=== PATIENT | male | born 1965 | race Caucasian/White ===

== ENCOUNTER 2024-04-27 08:04 | Inpatient (IN) | payer OTHER, SELFPAY ==
[2024-04-27] VITALS (72 sets, daily range): BP systolic 105–196; BP diastolic 67–135; PULSE 2–155; BMI 30.2; BMI 29.3
--- NOTE | 2024-04-27 04:54 | ED.GENMED ---
History of Present Illness
General
Chief Complaint: Breathing Problem
Source: patient and ambulance crew
Exam Limitations: none and clinical condition
Time Seen by Provider: 04/27/24 04:36
Nursing documentation reviewed up to this point in time: agreed with
History of Present Illness
History of Present Illness:
58-year-old male arrives via EMS with increased shortness of breath. Patient is currently residing at a friend's house. The patient has also been homeless recently. Patient has been taking albuterol that he garnered from a friend. Upon arrival
EMS found him waiting outside tachycardic, and tachypneic. His heart rate was 180s so they gave him 6 mg of adenosine. After the adenosine, there EKG showed rapid A-fib so medics gave verapamil. They also administered 2 sublingual nitro which
seemed to help. They put him on CPAP which helped with his breathing issues. He was able to speak in short sentences. Upon arrival, patient was in moderate to severe respiratory distress. He was able to speak in one-word sentences. He was
diaphoretic and his abdomen was distended.
Review of Systems
Review of Systems
Allergies reviewed?: Yes
All Other Systems: ROS reviewed and negative except as documented in HPI and ROS
Constitutional: Reports sleep disturbance and night sweats
EENT: Reports no symptoms
Respiratory: Reports trouble breathing
Cardiac: Reports diaphoresis and palpitations
ABD/GI: Denies nausea or constipated
: Reports no symptoms
Musculoskeletal: Reports no symptoms
Skin: Reports no symptoms
Neurological: Reports no symptoms
Endocrine: Reports no symptoms
Hematologic/Lymphatic: Reports no symptoms
Psychiatric: Reports anxiety
Phy Exam
General Physical Exam
General Presentation: moderate distress
General age: appears older than age
General Skin: warm
General Habitus: poor hygiene
General Mental: anxious and usual mental status
Cardiovascular Exam
Cardiovascular Exam: regular rate/rhythm and no edema
Neurological Exam
Neurological Exam: alert
Musculoskeletal Exam
Musculoskeletal Exam: full ROM
Skin Exam
Skin Exam: diaphoresis
Psychiatric Exam
Psychiatric Exam: anxious
Scores
Heart Failure Risk
Heart Failure Risk Score: Yes
History of Stroke or TIA: No
History of intubation for respiratory distress: No
Heart rate on ED arrival >/= 110: Yes
SaO2 <90% on arrival on room air: Yes
HR >/=110 during 3min walk test (or too ill to perform test): Yes
ECG has acute ischemic changes: No
Urea >/=12mmol/L (BUN 33.6mg/dL): No
Serum CO2>/=35mmol/L: No
Troponin I or T elevated to MT Level (0.4mg/dL): No
NT-proBNP >/=5,000ng/L (5,000pg/ml): No
HF Risk Score: 3
Admission Status: HIGH RISK 15.9% Consider SNF treatment or admission to hospital
Course
Orders/Labs/Results
Orders:
Orders
04/27/24 04:36
Electrocardiogram (*1) Urgent
Reason for Study: Other
Other Reason for Exam: Respiratory Distress
Cardiac Monitoring- Treatment ONCE
EKG- Treatment ONCE
IV Insert/Care/Rem.- Treatment PRN
CR Chest Portable - 1 View Urgent
Comment:
Reason For Exam: respiratory distress
Reason Study Needs to be Portable: Patient Unstable
O2 Therapy [RESP] Urgent
Titrate/Wean O2 to maintain O2 sat greater than (%): 93
Special Instructions: TO MAINTAIN CONTINUOUS O2 SATS >/= 93%
Pulse Ox/cont/shift [RESP] Urgent
Quantity: 1
Special Instructions: continuous pulse ox
04/27/24 04:38
EKG- Treatment ONCE
04/27/24 04:50
Complete Blood Count/With Diff Urgent
Comprehensive Metabolic Panel Urgent
NT-proBNP Urgent
Troponin I Urgent
04/27/24 04:53
Nitroglycerin 100 mg/250 ml [Nitroglycerin Premix] 100 mg in 250 ml IV NOW
Initial dose in mcg/min, then titrate:: 5
Titrate to keep:: SBP < 160 mmHg
Titrate by mcg/min:: 5 mcg/min, may increase by 10 mcg/min if dose > 20 mcg/min
Frequency of titrations (minutes):: every 3-5 minutes
Maximum dose in mcg/min:: 200
Begin to taper infusion when:: Remained at goal for 2hrs
Taper by mcg/min:: 5 mcg/min
Frequency of taper (minutes) if patient maintains goal:: 30
Taper to off?: Yes
If infusion off & no longer maintaining goal:: Contact Provider
04/27/24 05:16
COVID-19 Antigen Urgent
Source: Nasal Swab
04/27/24 05:34
ABG [Arterial Blood Gas] Urgent
%Oxygen/Room Air: 92% bipap
04/27/24 06:11
Celis Placement- Treatment ONCE
Reason for insertion: I&O's Critical Care
04/27/24 06:19
Furosemide [Lasix] 40 mg IV NOW STA
Abnormal Lab Results
04/27/24 04/27/24
04:50 05:34
WBC 16.7 H 10^3/uL
(4.8-10.8)
MCH 31.7 H pg
(27.0-31.0)
MPV 11.2 H fL
(7.4-10.4)
Abs Immat Gran (auto) 0.1 H 10^3/uL
(0-0.05)
Absolute Neuts (auto) 10.6 H 10^3/uL
(1.4-6.5)
Absolute Lymphs (auto) 4.8 H 10^3/uL
(1.2-3.4)
Absolute Monos (auto) 0.8 H 10^3/uL
(0.1-0.6)
Immature Gran % 0.7 H %
(0-0.5)
pO2 73 L mmHg
(83-108)
Carbon Dioxide 16 L mmol/L
(22-30)
Glucose 378 H mg/dl
(70-99)
AST 159 H U/L
(17-59)
ALT 152 H U/L
(0-50)
Alkaline Phosphatase 145 H U/L
(38-126)
Troponin I 0.039 H* ng/ml
04/27/24 04:50
04/27/24 04:50
Vital Signs
Initial and Last Documented VS:
Initial Vital Signs
Resp Pulse Ox
33 93
04/27/24 04:35 04/27/24 04:35
Last Documented Vital Signs
Temp Pulse Resp BP Pulse Ox
97.5 F 146 21 147/117 96
04/27/24 05:05 04/27/24 06:40 04/27/24 06:40 04/27/24 06:40 04/27/24 06:40
MDM/Problems Addressed
Differential Diagnosis Includes:
CHF, flash pulmonary edema, COPD exacerbation
Chronic conditions affecting care:
Tobacco abuse,
*Radiology
Radiology exam reviewed: preliminary read by ED provider (Pulmonary vascular congestion)
*Pulse Oximetry
Patient hypoxic: yes
*[employer] Crewmember Interpretation
Rate: normal
Interpretation: normal
Heart Rate: 155
Rhythm: sinus tachycardia
*Critical Care Note
Total Time (30-74mins, 75-104mins- exclusive of procedures): 50 (Critical care statement: A total of [default value] minutes of critical care time was provided for this patient. This time is separate from time utilized to perform the
aforementioned documented procedures. Aggregate critical care time includes only time during which I was engaged in work directl)
Patient Management
Social determinants of health affecting care: Living situation, Poor outpatient follow-up and Poor social support (Homelessness)
Discussion with other providers: Hospitalist
Update Note
Update Note:
04/27/2024 0643 AM patient is still on BiPAP. He is breathing more easily at this point. He had nitroglycerin on board which seemed to help. We did give him Lasix. Patient to be admitted to the hospitalist service CHF exacerbation
ED Attending Note
-
Portions of this chart may have been created with voice recognition software.� Occasional wrong word or��sound alike� substitutions may have occurred due to the inherent limitations of voice recognition software.
Discharge Plan
Departure
Patient Disposition: Admit
Date of Disposition: 04/27/24
Time of Disposition: 06:51
Presentation/result/management discussed w/ accepting MD/DO: Hospitalist
Discharge Problem:
CHF (congestive heart failure), Acute respiratory distress, Tobacco abuse, Homelessness
Interventions
Interventions:
*Risk Screen - Suicide Last Done: 04/27/24 04:39
*General Assessment Last Done: 04/27/24 04:39
*Neglect/Abuse Screening Last Done: 04/27/24 04:39
ED- Fall Risk Assessment Last Done: 04/27/24 04:39
*ED COVID-19 Vaccine History Last Done: 04/27/24 04:39
ED- Cardiac Assessment Last Done: 04/27/24 05:10
ED- Pulmonary Assessment Last Done: 04/27/24 05:10
Discharge Date and Time
Print Language: MONTSERRATIAN
[2024-04-27 04:58] LABS: % Basophils 0.7 % (0-2); % Immature Granulocytes 0.7 % (0-0.5); % Lymphocytes 28.9 % (20.5-51.1); % Monocytes 4.7 % (1.7-9.3); Absolute Basophils 0.1 10^3/uL (0-0.2); Absolute Eosinophils 0.3 10^3/uL (0-0.7); Absolute Immature Granulocytes 0.1 10^3/uL (0-0.05); Absolute Lymphocytes 4.8 10^3/uL (1.2-3.4); Absolute Monocytes 0.8 10^3/uL (0.1-0.6); Absolute Neutrophils 10.6 10^3/uL (1.4-6.5); Hematocrit 48.1 % (39.0-52.0); Hemoglobin 16.5 g/dL (13.0-18.0); Mean Corp Hgb Conc. 34.3 g/dL (33.0-37.0); Mean Corpuscular Hgb 31.7 pg (27.0-31.0); Mean Corpuscular Volume 92.3 fL (80.0-94.0); Mean Platelet Volume 11.2 fL (7.4-10.4); Nucleated Red Blood Cells % 0 % (-); Platelet Count 259 10^3/uL (130-400); Red Blood Cell Count 5.21 10^6/uL (4.70-6.10); Red Cell Dist. Width 12.8 % (11.5-14.5); White Blood Cell Count 16.7 10^3/uL (4.8-10.8)
[2024-04-27] MEDS: NITROGLYCERIN PREMIX 250 IV (04:59)
[2024-04-27 05:23] LABS: ALT (SGPT) 152 U/L (0-50); AST (SGOT) 159 U/L (17-59); Albumin 4.2 g/dl (3.5-5.0); Alkaline Phosphatase 145 U/L (38-126); Blood Urea Nitrogen 17 mg/dl (9-20); Calcium 9.1 mg/dl (8.4-10.2); Carbon Dioxide 16 mmol/L (22-30); Chloride 103 mmol/L (98-107); Estimated Creatinine Clearance 74 ml/min; Glucose 378 mg/dl (70-99); Potassium 4.4 mmol/L (3.5-5.1); Sodium 141 mmol/L (135-145); Total Bilirubin 0.9 mg/dl (0.2-1.3); Total Protein 6.6 g/dl (6.3-8.2); eGFR > 60.00
[2024-04-27 05:34] LABS: NT-proBNP 1670 pg/ml; Troponin I 0.039 ng/ml
--- NOTE | 2024-04-27 05:34 | EDRN ---
On arrival to ED, pt. switched from EMS CPAP to hospital Bipap. Per respiratory, current settings 12/5, 14L of oxygen.
[2024-04-27 05:35] LABS: COVID-19 Antigen Negative (Negative)
[2024-04-27 05:39] LABS: B.E. -3.7 mmol/L; HCO3 21.5 mmol/L (21-28); PCO2 39 mmHg (35-48); PO2 73 mmHg (83-108); pH 7.35 (7.35-7.45)
[2024-04-27] MEDS: LASIX 40 MG IV ×2 (06:22→09:57)
--- NOTE | 2024-04-27 06:44 | EDRN ---
Pt. is poor historian, reports he has had cardiac stents and renal stents in the past, reports a hx. of an [place]. Pt. denies taking any medications at home, states, 'I haven't followed up with them in over 10 years. I used to go to [facility]
in [place], but I don't take any medicines now'.
--- NOTE | 2024-04-27 07:25 | HPS.HSE ---
Family Physician
-
Family Physician:
Chief Complaint
-
SOB, respiratory distress
History of Present Illness
HPI: 58-year-old homeless male without known past medical history, presented with shortness of breath. Patient is currently residing at a friend's house. Patient has been taking albuterol that he garnered from a friend.
He was found to be tachycardic and tachypneic by EMS. His heart rate was in the 180s so was given 6 mg adenosine. After the adenosine, there EKG showed rapid A-fib so medics gave verapamil.
They also administered 2 sublingual nitro which seemed to help. They put him on CPAP which helped with his breathing. He was able to speak in short sentences.
Medical History
Past Medical History
Past Medical History: Reports None
Past Surgical History: Reports None
Social History
Tobacco: Smoker (2PPD)
Alcohol: Occasional
Living: Homeless
Family History
Family History: Not pertinent
Allergies / Home Medications
Allergies reflects when Allergies were last updated in [facility].
Home Medications with original date entered in [facility]
Allergy/Medication List:
Allergies
Allergy/AdvReac Type Severity Reaction Status Date / Time
No Known Allergies Allergy Verified 04/27/24 04:37
Home Medications
No Meds [No Current Medications] 04/27/24
Review of Systems
-
Respiratory: Reports See HPI and Trouble Breathing
Cardiac: Reports Diaphoresis
Physical Exam
Vital Signs
Vital Signs
Temp Pulse Resp BP Pulse Ox
36.4 C 133 18 130/106 97
04/27/24 05:05 04/27/24 06:51 04/27/24 06:51 04/27/24 06:51 04/27/24 06:51
Physical Exam
General: Well Developed, Well Nourished, Conversant and Respiratory Distress
HEENT: NormoCephalic, Moist mucous membranes, Atraumatic and Oxygen (BIPAP)
Respiratory: Rhonchi and Non Labored Respirations; No Accessory Resp Muscle Use
Cardiac: S1/S2 and Regular Rhythm; No Murmur or Rub
GI: Soft, Non Tender, Non Distended and Normal Bowel Sounds; No Organomegaly
Rectal: Deferred by Provider
Musculoskeletal: No Clubbing, No Cyanosis, Edema, Left Lower Extremity (mild) and Edema, Right Lower Extremity (mild)
Skin: No Rash
Neuro: Awake and Alert
Psych: Calm and Intact Judgment/Insight
Laboratory Results
-
04/27/24 04:50
04/27/24 04:50
Laboratory Results
pH 7.35 (7.35-7.45) 04/27/24 05:34
pCO2 39 mmHg (35-48) 04/27/24 05:34
pO2 73 mmHg (83-108) L 04/27/24 05:34
HCO3 21.5 mmol/L (21-28) 04/27/24 05:34
Total Bilirubin 0.9 mg/dl (0.2-1.3) 04/27/24 04:50
AST 159 U/L (17-59) H 04/27/24 04:50
ALT 152 U/L (0-50) H 04/27/24 04:50
Alkaline Phosphatase 145 U/L (38-126) H 04/27/24 04:50
Troponin I 0.039 ng/ml H* 04/27/24 04:50
Data Reviewed
-
Diagnostic Radiology: Image Personally Visualized and interpreted and Report Reviewed by me
Lab Data: Labs Reviewed by me
Impression/Plan
-
HPI: 58-year-old homeless male without known past medical history, presented with shortness of breath. Patient is currently residing at a friend's house. Patient has been taking albuterol that he garnered from a friend.
He was found to be tachycardic and tachypneic by EMS. His heart rate was in the 180s so was given 6 mg adenosine. After the adenosine, there EKG showed rapid A-fib so medics gave verapamil.
They also administered 2 sublingual nitro which seemed to help. They put him on CPAP which helped with his breathing. He was able to speak in short sentences.
In the ED, he remained in respiratory distress, only able to speak in one-word sentences initially, was diaphoretic. He was placed on BiPAP which helped with his respiratory distress.
A/P:
# Acute hypoxic respiratory failure, unclear cause, could be due to acute CHF versus others
Continue BiPAP O2 support
Chest x-ray noted Cardiomegaly with increased pulmonary vascularity.
Status post Lasix 40 IV x1 in ED, cont IV lasix 40 mg daily
patient was started with nitro drip in the ED
Check D-dimer and consider CT chest
Cardiology and Painter And Decorator CS
# Presumed new onset A-fib RVR
IV Cardizem PRN for HR > 120
Check echo
Cardiology consult
# Likely nonischemic troponin elevation
EKG noted A fib RVR
Troponin 0.039, continue to trend
# Elevated LFT, presumed congestion versus reactive
Continue to trend
# Leukocytosis, possibly reactive
Check procalcitonin, check CRP
Monitor temperature curve
Observe without antibiotic for now
DVT prophylaxis: Lovenox SQ
Full code
[2024-04-27 08:18] LABS: D-Dimer 1.16 ug/mlFEU (0.00-0.50)
--- NOTE | 2024-04-27 08:29 | CON.INTV ---
Consultation
Consultation Request
Date/Time Consultation Requested: 04/27/2024-9 AM
Date/Time Consultation Performed: 04/27/2024-9:30 AM
Requesting Provider: Hospitalist
Performing Provider: Dr. Yoder
Reason for Consultation: Respiratory failure/CHF/critical care management
Medical History
-
Chief Complaint: Severe shortness of breath
History of Present Illness:
58-year-old male homeless smoker of 2 packs of cigarettes daily with a history of CAD and stent but no other significant past medical history though he is a poor historian and does not seek medical attention often presented with severe shortness of
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
04/27/2024. Patient feels much improved after nitroglycerin and Lasix as well as oxygen. He continues to have significant tachycardia with irregular rhythm. He denies any current chest pain but had some 'chest pressure'. Does not any chest
congestion, hemoptysis, productive cough, abdominal pain, nausea, vomiting, diarrhea, leg swelling or weakness.
Past Medical History
Past Medical History: None (CAD/stent-details unclear. Probable COPD. Tobacco addiction-2 packs daily.)
Social History
Tobacco: Smoker ([id number]-2 packs a day-ongoing)
Alcohol: None
Drug: None
Personal: Single
Living: Homeless
Occupational Exposures: No known asbestos exposure
Environmental Exposures: No known tuberculosis exposure
Family History
Family History: Reviewed & Not Pertinent
Allergies / Home Medications
Allergies
Allergy/AdvReac Type Severity Reaction Status Date / Time
No Known Allergies Allergy Verified 04/27/24 04:37
Home Medications
�Medication �Instructions �Recorded �Confirmed �Last Taken �Type
No Meds [No Current Medications] 04/27/24 04/27/24 Unknown History
Review of Systems
-
Unable to Obtain full review of systems at this time due to: Other (Per HPI)
Vitals / Labs / Diagnostic Testing
Vital Signs
Temp Pulse Resp BP Pulse Ox
97.6 F 126 24 131/85 98
04/27/24 07:00 04/27/24 07:00 04/27/24 07:00 04/27/24 07:00 04/27/24 07:39
Lab Data
04/27/24 04:50
04/27/24 04:50
Laboratory Results
04/27/24
05:34
pH 7.35
pCO2 39
pO2 73 L
HCO3 21.5
O2 Delivery Level
Microbiology
04/27/24 07:55 Nasal Swab Influenza Types A & B (FLO) - Final
Negative for Influenza A & B, NAAT
Negative results must be combined with clinical observations
and patient history.
Nucleic Acid Amplification test (NAAT)performed on the
[employer] platform.
Diagnostic Testing:
Physical Exam
-
Exam:
Well-nourished and well-developed in no apparent distress
HEENT-atraumatic, normocephalic
Neck-supple, no JVD, no bruit
Heart-regular rate and rhythm-no murmurs, rubs or gallops
Chest with mildly diminished breath sounds but no wheezes, has crackles at both bases
Back-no tenderness
Abdomen-soft, nontender, nondistended, no hepatosplenomegaly
Extremities-no cyanosis, clubbing, edema and good peripheral pulses
Integument-intact, no rashes, lesions or ecchymosis
Neurology-alert and oriented, nonfocal motor and sensory exam
Assessment
-
58-year-old male homeless smoker of 2 packs of cigarettes daily with a history of CAD and stent but no other significant past medical history though he is a poor historian and does not seek medical attention often presented with severe shortness of
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
04/27/2024.
Respiratory failure-acute hypoxemic due to CHF
CHF-EF unknown
SVT status post adenosine-now rapid atrial fibrillation
Troponin elevation
Transaminitis
Leukocytosis-WBC 16.7
Elevated D-dimer-1.16
Metabolic acidosis
Hyperglycemia-blood sugar 378
Conditions present prior to admission:
CAD/stent-details unclear. Probable COPD. Tobacco addiction-2 packs daily.
Plan
Patient will be admitted to medical intensive care unit for close observation
Supplemental oxygen as needed
High flow or noninvasive ventilation if needed
Intubated mechanically ventilated if needed
Currently being weaned off BiPAP
Nebulizers if needed-currently not bronchospastic and would avoid with significant tachycardia at this time
Aspiration precautions
Incentive spirometry
Atrial fibrillation rate control
Heparin drip
Nitroglycerin drip-may be able to be weaned off
Cardiology evaluation-pending
Trend troponin
Likely needs ischemia evaluation
Echocardiogram recommended
Diuresis as tolerated
Monitor renal function, electrolytes, intake/output, lower extremity edema and weight
Replace electrolytes as needed
Follow transaminitis
Check cultures
Hold off on antibiotics
D-dimer positive
Ideally needs CT chest with PE protocol-nonurgent as patient on heparin drip at this point and somewhat unstable-low clinical suspicion
Monitor blood sugar
Insulin supplementation as needed
Check A1c
Smoking cessation counseling ongoing
DVT prophylaxis-on heparin drip
Nutrition
Early mobilization
Outpatient pulmonary iexyan-sd-zngkqta cessation counseling, yearly low-dose lung cancer screening CT, PFTs, etc.
Critical care statement: A total of 55 minutes of critical care time was provided for this patient today. This includes management of unstable vital signs, evaluation of the patient at bedside, reviewing the patient's pertinent medical records
including radiographs, microbiology, laboratory evaluations, and discussion with primary team, consultants, pharmacy, nutrition, physical therapy, case management, charge nurse, critical care nursing, and respiratory therapy.
Diagnostic data:
Chest x-ray 04/27/2024-cardiomegaly with CHF
EKG 04/27/2024-atrial fibrillation with rapid ventricular response, septal infarct, ST and T wave abnormalities laterally
Data Reviewed
-
EKG: Report reviewed by me
Radiology: Image personally visualized and interpreted and Report reviewed by me
CT Scan: Image personally visualized and interpreted and Report reviewed by me
Medical Tests (Nuc Med, Echo etc): Report reviewed by me
Labs: Labs reviewed by me
Old Records: Reviewed
Critical Care Time (in minutes): 55
[2024-04-27 08:37] LABS: Procalcitonin 0.14 ng/ml (0.0-0.25)
[2024-04-27] MEDS: NICODERM TRANSDERMAL 21 MG TRANSDERM (09:58)
[2024-04-27] MEDS: LOW STRENGTH ASPIRIN 324 MG PO (09:58)
[2024-04-27] MEDS: HEPARIN 25000 UNITS/250 ML IV (10:04)
[2024-04-27] MEDS: CARDIZEM 5 MG IV (10:07)
[2024-04-27 10:16] LABS: APTT 24.6 Sec (23.4-35.0); INR 1.13; PT 14.3 Sec (11.4-14.6)
[2024-04-27 10:40] LABS: Magnesium 1.9 mg/dl (1.6-2.3)
[2024-04-27 10:42] LABS: Troponin I 0.153 ng/ml
[2024-04-27] MEDS: CARDIZEM 125 IV ×2 (11:00→19:37)
[2024-04-27] MEDS: CARDIZEM 10 MG IV (11:00)
--- NOTE | 2024-04-27 11:29 | PTCARENOTE ---
Received pt in the ED on BiPAP 15-5 w/ 14 L. RR 20's. HR 130's, Afib on monitor. SBP 140's. Pt on Nitro 30mcg/min. Dr Hauser at bedside, ICU orders written. Pt appears comfortable, states he is feeling better. Weaned to 6L NC, sating 95%, tolerating
well. Pt transferred to room 3365 and this RN continued to care for pt. Heparin gtt started @ 1000units/hr and Nitro gtt turned off at 10am. IVP Cardizem given, followed by Cardizem gtt @ 5mg/hr, per Dr. BRITNI Vásquez's orders. Will continue to trend BP
and HR. Celis patent w/ large amounts of pale yellow urine. Pt received 2nd dose of IV Lasix @ 10am. Heart Failure education provided, packet given. Pt ordered Low Cholesterol diet. Place on Accu Checks. EHCO done at bedside. Full assessment and
admission as documented.
[2024-04-27 11:41] LABS: Glucose - Point of Care 268 mg/dl (70-99)
--- NOTE | 2024-04-27 11:56 | CON.CAR ---
Addendum entered and electronically signed by Tano Vásquez MD 04/27/24 16:56:
58-year-old man admitted with dyspnea, acute hypoxemic respiratory failure, and atrial fibrillation with rapid ventricular response up to 180 bpm. Gradual onset of dyspnea over the last few weeks, no awareness of tachycardia no chest pain, then
abruptly short of breath. Does not seek medical care routinely, but history of MD with PCI at [facility] roughly 10 years ago. Currently in much less distress on BiPAP heart rate now 120s.
PMH history of MD with PCI at [facility], presumed hypertension, hyperlipidemia, COPD
Meds: none
Allergies: none
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
Family history noncontributory
Surgical history negative except for PCI by patient report
ROS: Otherwise unrevealing
Echo 04/27/2024: EF 30-35%, mild LVH, global hypokinesis, regional variability, mild LVH aortic sclerosis,, normal atria, mild MR, normal pulmonary artery systolic pressure
131/85, pulse 126, respiratory 24, afebrile, BiPAP, head neck exam unrevealing, dentition not examined, lungs diminished with crackles right base, JVD okay, irregular rate and rhythm without obvious murmur, abdomen obese extremities without clubbing
cyanosis or edema neuro nonfocal, pulses palpable
Chest x-ray vascular congestion, CHF, cardiomegaly, aortic atherosclerosis, possible COPD
ECG atrial fibrillation rapid ventricular response suspected old anteroseptal MD, possible lateral ischemia
White count 16, hemoglobin 16.5, platelets 259,
D-dimer is 1.16, ALT and AST are 152 and 159, troponin is 0.039, C-reactive protein pending, proBNP 1670, procalcitonin pending ABG 7.35, pCO2 39, pO2 73, on BiPAP with 14 L of oxygen
Impression:
See below
Plan:
He presents with acute hypoxemic respiratory failure with acute heart failure with unknown EF. There is a history of prior MD with septal Q waves and PCI by patient report. He seems more comfortable with the addition of BiPAP and reduction in
heart rate. He is currently on IV nitro. He is still tachycardic.
Short-term we will try low-dose IV diltiazem. Ideally will switch to beta-lulu. Will heparinize for now, check echocardiogram and then initiate GDMT as tolerated. Based on clinical course he may need cardiac catheterization versus eventual
noninvasive ischemic evaluation. We will need to determine best strategy for atrial fibrillation beyond anticoagulation and rate control, cardioversion with and without transesophageal echo, amiodarone, etc.
Original Note:
Consultation
Consultation Request
Date/Time Consultation Performed: 04/27/24
Requesting Provider: Dr. Hauser
Performing Provider: Sasha Eduardo PA-C for Dr. BRITNI Vásquez
Reason for Consultation: CHF, afib
Medical History
-
Chief Complaint: SOB
History of Present Illness:
Patient is a 58 yo M with PMH of CAD s/p prior MD with LAD PCI ~[address] [facility], however has not been followed recently. He also reports he had previously been on a blood thinner however does not recall why. He reports
having stopped all of his medications some time ago when he lost his medical insurance. He reports over the last several weeks he has noted progression of SOB. He had been using a friend's nebulizers. Last evening he reports describing his symptoms
as SOB was a 'severe understatement' and asked for his friend to call 911 this morning. On arrival was noted to be in significant respiratory distress and required CPAP/BiPaP. He was noted to be tachycardic and tachypneic. Was given adenosine by EMS
and noted to be in rapid afib. Was started on IV cardizem gtt. Also given 2 SL nitro by EMS and dose of lasix in ER. Now in ICU patient reports he is much improved. Cardiology consulted for evaluation. Denies CP, palpitations, fevers, chills, LE
edema. Endorses orthopnea. Currently living with a friend
PMH:
CAD with MD status post LAD PCI approximately [address] [facility]
Presumed history of paroxysmal atrial fibrillation
Hypertension
Hyperlipidemia
Ongoing tobacco use
Past Medical History
Past Medical History: Other (in HPI)
Social History
Tobacco: Smoker (2 ppd)
Personal: Single
Living: With Roomate
Family History
Family History: Early CAD (in father)
Allergies / Home Medications
Allergy/AdvReac Type Severity Reaction Status Date / Time
No Known Allergies Allergy Verified 04/27/24 04:37
�Medication �Instructions �Recorded �Confirmed �Type
No Meds [No Current Medications] 04/27/24 04/27/24 History
Review of Systems
-
History Source: Patient
All other systems: Negative unless noted
Physical Exam
Vital Signs
Temp Pulse Resp BP Pulse Ox
97.5 F 117 23 143/108 95
04/27/24 11:23 04/27/24 11:00 04/27/24 08:30 04/27/24 11:00 04/27/24 11:27
Lab Results
04/27/24 04:50
04/27/24 04:50
Troponin I 0.153 ng/ml H* D 04/27/24 09:56
Shx-U-Bmqcdmceovi Pept 1670 pg/ml 04/27/24 04:50
Physical Exam
General: No Apparent Distress, Comfortable and Other (on supp O2)
HEENT: Normocephalic, Anicteric and Moist Mucous Membranes
Respiratory: Crackles and Non Labored Respirations
Cardiac: S1/S2 and Irregular Rhythm
GI: Soft, Non Tender, Non Distended and Normal Bowel Sounds
Musculoskeletal: No Clubbing, No Cyanosis and No Edema
Skin: Warm and Dry
Neuro: AO x 3
Impression / Plan
-
Primary Carton Forming Machine Adjuster: remotely seen by [facility] Carton Forming Machine Adjuster, details unknown
Assessment:
Acute hypoxic respiratory failure
Acute HFrEF
Atrial fibrillation with RVR, new diagnosis of unclear duration
Elevated troponin
Hyperglycemia, concern for diabetes, hgbA1c pending
Elevated LFTs
Leukocytosis
Elevated ddimer
CAD with MD status post LAD PCI approximately [address] [facility]
Presumed history of paroxysmal atrial fibrillation
Hypertension
Hyperlipidemia
Ongoing tobacco use
ECHO 04/27/24: TDS, global hypokinesis with regional variability, EF 30 to 35%, mild concentric LVH with discrete upper septal thickening, aortic sclerosis, PAP 25 to 30 mmHg
Plan:
-Patient presents in respiratory distress, presumably secondary to acute CHF. proBNP 1670. Chest x-ray with increased pulmonary vascularity with concern for CHF
-Also in atrial fibrillation with rapid ventricular response. Required adenosine by EMS. Remains in A-fib with elevated heart rates. Uptitrate IV Cardizem gtt. as needed for heart rate control
-Echocardiogram with EF 30 to 35%, unclear prior
-Attempted to obtain records from [facility]. I called 3 dressing room porter offices in [facility], none of whom had records on this patient
-Continue aspirin, IV heparin
-ddimer elevated so getting chest CTA
-[id number] score of 4 for HTN, CAD, CHF, presumed diabetes. will need eventual transition to OAC
-continue diuresis with IV lasix at present. wean supp O2
-CHF education
-trop up to 0.113. trend to peak. no CP. EKG with evidence of lateral ischemia by EKG in rapid afib. repeat EKG now. consider for L/RHC on Tuesday if agreeable and will be compliant with meds/follow up. Cr 1.1
-add coreg 3.125mg BID. uptitration of GDMT for cardiomyopathy as BP/HR/cost allow
-add high intensity statin therapy if LFTs improve, suspected elevated due to passive congestion. check CVE. consider abd US
-hgbA1c pending.
-consider for LAURYN/CV prior to DC
-tobacco cessation
-d/w nursing
Data Reviewed
-
EKG: Tracing Personally Visualized and interpreted
Radiology: Report Reviewed by me
Medical Tests (Nuc Med, Echo etc): Report Reviewed by me
Labs: Labs Reviewed by me
Old Records: Reviewed
[2024-04-27 11:57] LABS: Glycohemoglobin (HgbA1c) 8.5 % (4.0-5.6)
[2024-04-27] MEDS: NOVOLOG FLEXPEN-MODERATE RESISTANCE 5 UNITS SC (12:31)
--- NOTE | 2024-04-27 13:00 | CARDSERVLU ---
Echocardiogram with [facility] completed after protocol screening completed. Allergies verified.
Patent IV site: __L ANTECUBE___
IV site flushed with 0.9% NaCl pre and post administration.
Diluted bolus method utilized to enhance visualization of ventricular moise.
Total volume given: _5___ mL
Patient tolerated all procedures well without complications.
[2024-04-27 14:30] LABS: HDL Cholesterol 39 mg/dl; LDL Cholesterol, Calculated 121 mg/dl; Total Cholesterol 178 mg/dl (50-199); Triglyceride 94 mg/dl (10-149); Very Low Density Lipoprotein 18 mg/dl (0-30)
[2024-04-27] MEDS: NOVOLOG FLEXPEN-MODERATE RESISTANCE SC (16:27)
[2024-04-27 16:33] LABS: Glucose - Point of Care 106 mg/dl (70-99)
[2024-04-27 16:45] LABS: APTT 34.1 Sec (23.4-35.0)
[2024-04-27 17:07] LABS: Troponin I 0.219 ng/ml
[2024-04-27] MEDS: COREG 3.125 MG PO (19:37)
--- NOTE | 2024-04-27 20:00 | PTCARENOTE ---
rec`d pt at 1900. AAox3 cardiazem gtt. afib on monitor. 6L NC 98%. coarse and diminished lung sounds. non productive cough. harley in place. rt hand and left AC. heparin gtt continued. call sifuentes in reach, safe environment maintained.
[2024-04-27] MEDS: XOPENEX 1.25 MG INHALANT SOLUTION INH (23:11)
[2024-04-27 23:46] LABS: APTT 44.2 Sec (23.4-35.0)
[2024-04-28] VITALS (26 sets, daily range): BP systolic 110–180; BP diastolic 63–123; PULSE 87–99; O2SAT 94; BMI 29.6
--- NOTE | 2024-04-28 | PTCARENOTE ---
pt reassessed. no changes in pt assessment. call sifuentes in reach.
[2024-04-28 00:04] LABS: Troponin I 0.278 ng/ml
--- NOTE | 2024-04-28 04:30 | PTCARENOTE ---
RN began to wash pt. pt became anxious and SOB. STAT meds ordered by VICENTE. 02 increased to 8L. safe environment maintained.
[2024-04-28] MEDS: MORPHINE SULFATE 2 MG IV ×2 (04:56→04:57)
[2024-04-28] MEDS: LASIX 40 MG IV ×2 (04:58→08:22)
[2024-04-28 05:29] LABS: % Basophils 0.6 % (0-2); % Eosinophils 2.2 % (0-6); % Immature Granulocytes 0.5 % (0-0.5); % Lymphocytes 28.5 % (20.5-51.1); % Monocytes 5.8 % (1.7-9.3); % Neutrophils 62.4 % (42.2-75.2); Absolute Basophils 0.1 10^3/uL (0-0.2); Absolute Eosinophils 0.3 10^3/uL (0-0.7); Absolute Immature Granulocytes 0.1 10^3/uL (0-0.05); Absolute Lymphocytes 4.1 10^3/uL (1.2-3.4); Absolute Monocytes 0.8 10^3/uL (0.1-0.6); Hematocrit 47.1 % (39.0-52.0); Hemoglobin 16.3 g/dL (13.0-18.0); Mean Corp Hgb Conc. 34.6 g/dL (33.0-37.0); Mean Corpuscular Hgb 30.6 pg (27.0-31.0); Mean Corpuscular Volume 88.4 fL (80.0-94.0); Mean Platelet Volume 11.3 fL (7.4-10.4); Nucleated Red Blood Cells % 0 % (-); Platelet Count 245 10^3/uL (130-400); Red Blood Cell Count 5.33 10^6/uL (4.70-6.10); Red Cell Dist. Width 12.8 % (11.5-14.5); White Blood Cell Count 14.4 10^3/uL (4.8-10.8)
[2024-04-28 05:39] LABS: APTT 49.7 Sec (23.4-35.0)
[2024-04-28 05:56] LABS: ALT (SGPT) 143 U/L (0-50); AST (SGOT) 81 U/L (17-59); Albumin 4.4 g/dl (3.5-5.0); Alkaline Phosphatase 113 U/L (38-126); Blood Urea Nitrogen 16 mg/dl (9-20); Calcium 9.5 mg/dl (8.4-10.2); Carbon Dioxide 25 mmol/L (22-30); Chloride 99 mmol/L (98-107); Direct Bilirubin 0.4 mg/dl (0.0-0.4); Estimated Creatinine Clearance 80 ml/min; Glucose 291 mg/dl (70-99); Magnesium 1.7 mg/dl (1.6-2.3); Potassium 3.9 mmol/L (3.5-5.1); Sodium 137 mmol/L (135-145); Total Bilirubin 1.3 mg/dl (0.2-1.3); Total Protein 6.6 g/dl (6.3-8.2); eGFR > 60.00
[2024-04-28 06:15] LABS: Troponin I 0.169 ng/ml
--- NOTE | 2024-04-28 07:02 | W.PN.INTV ---
Today's Communication / Plan
Recommendations
Trend troponin
Diuresis
Atrial fibrillation rate control
Probable cardiac catheterization
Nebulizers as needed
Assessment
-
58-year-old male homeless smoker of 2 packs of cigarettes daily with a history of CAD and stent but no other significant past medical history though he is a poor historian and does not seek medical attention often presented with severe shortness of
breath unresponsive to 'albuterol inhaler' found to be tachycardic, tachypneic, and an SVT given adenosine with subsequent rapid atrial fibrillation and CHF-chief safety officer consulted for respiratory failure/CHF/rapid A-fib/critical care management
04/27/2024.
Respiratory failure-acute hypoxemic due to CHF
CHF-reduced EF-30%
SVT status post adenosine-now rapid atrial fibrillation
Troponin elevation
Transaminitis
Leukocytosis-WBC 16.7
Elevated D-dimer-1.16
Metabolic acidosis
Hyperglycemia-blood sugar 378
Conditions present prior to admission:
CAD/stent-details unclear. Probable COPD. Tobacco addiction-2 packs daily.
Plan
Remains critically ill with rapid atrial fibrillation on occasions, CHF
Continue supplemental oxygen as needed
BiPAP continues as needed-was dependent when he first came in-now liberated
Nebulizers if needed-currently not bronchospastic and would avoid with significant tachycardia at this time
Aspiration precautions continues
Incentive spirometry encouraged
Atrial fibrillation rate control continues
Heparin drip
Nitroglycerin drip wean
Cardiology [id number] reviewed--IV diltiazem, heparin, echocardiogram, and probable cardiac catheterization on Tuesday
Troponin trended
Echocardiogram 04/28/2024-EF 30-35%, diastolic function intermediate, aortic sclerosis, PA systolic 25-30
Diuresis as tolerated
Monitor renal function, electrolytes, intake/output, lower extremity edema and weight
Replace electrolytes as needed
Follow LFTs
Influenza negative
Hold off on antibiotics
D-dimer positive
Ideally needs CT chest with PE protocol-nonurgent as patient on heparin drip at this point and somewhat unstable-low clinical suspicion
Monitor blood sugar
Insulin supplementation as needed
A1c elevated at 8.5
Smoking cessation counseling ongoing
DVT prophylaxis-on heparin drip
Nutrition
Early mobilization
Outpatient pulmonary ucgeon-ru-fhiujxn cessation counseling, yearly low-dose lung cancer screening CT, PFTs, etc.
Critical care statement: A total of 40 minutes of critical care time was provided for this patient today. This includes management of unstable vital signs, evaluation of the patient at bedside, reviewing the patient's pertinent medical records
including radiographs, management of respiratory failure, BiPAP management, microbiology, laboratory evaluations, and discussion with primary team, consultants, pharmacy, nutrition, physical therapy, case management, charge nurse, critical care
nursing, and respiratory therapy.
Diagnostic data:
Chest x-ray 04/27/2024-cardiomegaly with CHF
EKG 04/27/2024-atrial fibrillation with rapid ventricular response, septal infarct, ST and T wave abnormalities laterally
Subjective Dataa
Subjective Data
Date of Service:
Date of Service: April 28, 2024
Chief Complaint: Drainage Inspector Follow Up and Pulmonary Follow Up
Subjective:
Had episode of shortness of breath responding to nebs and Lasix last evening, much improved this morning, no complaints of shortness of breath at rest, chest pain, productive cough, abdominal pain or increased leg swelling
Review of Systems
General: Other (Per HPI)
Objective Data
Data Reviewed
Vital Signs / I&O / Oxygen:
Vital Signs
Temp Pulse Resp BP Pulse Ox
97.8 F 81 25 148/77 95
04/27/24 15:25 04/28/24 06:00 04/28/24 06:00 04/28/24 06:00 04/28/24 06:00
Intake and Output
09/20/24 09/21/24 09/22/24
06:59 06:59 06:59
Intake Total 1370 / 1370
Output Total 300 / 300 4300 / 4300
Balance -300 / -300 -2930 / -2930
SaO2 95
Nasal Cannula flow liters per 6
minute
Physical Exam
General: Respiratory Distress (n) and Comfortable
HEENT: Normocephalic, Anicteric and Moist Mucous Membranes
Cardiovascular: Irregular Rhythm and Murmur
Respiratory: Clear (Diminished breath sounds and prolonged expiratory time), Wheeze (n), Crackles (Basilar), Rhonchi (n), Non-Labored Respirations, Accessory Resp Muscle Use (n) and Stridor (n)
GI: Soft, Non Distended and Non Tender
Neurology: Awake, Alert and No Motor Deficits
Skin: Warm, Good Color, Cyanosis (n), Jaundice (n) and Rash (n)
Labs/Micro/Reports
Lab Data
04/28/24 05:08
04/28/24 05:08
Laboratory Results
04/27/24 04/27/24 04/27/24
09:56 16:21 23:09
PT 14.3
INR 1.13
APTT 24.6 34.1 Cancelled
04/27/24 04/28/24
23:26 05:08
PT
INR
APTT 44.2 H 49.7 H
Microbiology
04/27/24 07:55 Nasal Swab Influenza Types A & B (FLO) - Final
Negative for Influenza A & B, NAAT
Negative results must be combined with clinical observations
and patient history.
Nucleic Acid Amplification test (NAAT)performed on the
[employer] platform.
[2024-04-28] MEDS: HEPARIN 25000 UNITS/250 ML IV ×2 (07:06→22:21)
[2024-04-28] MEDS: XOPENEX 1.25 MG INHALANT SOLUTION INH (08:00)
--- NOTE | 2024-04-28 08:00 | W.PN.HOSP.TC ---
Today's Communication/Plan
-
downgrade to IVU
Assessment / Plan
Assessment / Plan
HPI: 58-year-old homeless male without known past medical history, presented with shortness of breath. Patient is currently residing at a friend's house. Patient has been taking albuterol that he garnered from a friend.
He was found to be tachycardic and tachypneic by EMS. His heart rate was in the 180s so was given 6 mg adenosine. After the adenosine, there EKG showed rapid A-fib so medics gave verapamil.
They also administered 2 sublingual nitro which seemed to help. They put him on CPAP which helped with his breathing. He was able to speak in short sentences.
In the ED, he remained in respiratory distress, only able to speak in one-word sentences initially, was diaphoretic. He was placed on BiPAP which helped with his respiratory distress.
A/P:
# Acute hypoxic respiratory failure, likely due to pulmonary edema from acute systolic heart failure
BiPAP -> 4L NC , cont to wean O2 as tolerated
Chest x-ray noted Cardiomegaly with increased pulmonary vascularity.
Cont IV lasix 40 mg daily
s/p Nitro drip from the ED
Cardiology on board
# Presumed new onset A-fib RVR
Cardizem drip started per cardiology
Added coreg 3.125 mg BID
started heparin drip, continue
echo noted reduced EF at 30-35%. Diastolic function indeterminate due to atrial fibrillation. Estimated PASP 25-30 mmHg
Cardiology on board, planning cardiac catheterization
# Troponin elevation may be due to NSTEMI vs non-ischemia
EKG noted A fib RVR
Troponin peaked at 0.278
# Elevated LFT, presumed congestion versus reactive, improving
Continue to trend
# Leukocytosis, possibly reactive
pt is non-toxic appearing
CRP at 14
Procalcitonin 0.14
Monitor temperature curve
Observe without antibiotic for now
# Elevated d dimer may be reactive (acute phase protein)
Pt has already been empirically started with heparin drip for A fib, and his respiratory status has improved, so VTE rule out probably less urgent now
DVT prophylaxis: heparin drip
Full code
DW RN
Anticipated Discharge: > 48 hours
Subjective/Interval History
-
Date of Service: April 28, 2024
Objective Data
-
Labs:
Laboratory Results
04/27/24 04/27/24 04/28/24
23:09 23:26 05:08
WBC 14.4 H
Hgb 16.3
Hct 47.1
Plt Count 245
APTT Cancelled 44.2 H 49.7 H
Sodium 137
Potassium 3.9
Chloride 99
Carbon Dioxide 25
BUN 16
Creatinine 0.9
Glucose 291 H
Calcium 9.5
Total Bilirubin 1.3
AST 81 H
ALT 143 H
Alkaline Phosphatase 113
04/28/24
12:00
WBC
Hgb
Hct
Plt Count
APTT Pending
Sodium
Potassium
Chloride
Carbon Dioxide
BUN
Creatinine
Glucose
Calcium
Total Bilirubin
AST
ALT
Alkaline Phosphatase
Vital Signs:
Vital Signs
Temp Pulse Resp BP Pulse Ox
36.6 C 81 25 148/77 95
04/27/24 15:25 04/28/24 06:00 04/28/24 06:00 04/28/24 06:00 04/28/24 06:00
I&O
04/27/24 04/28/24 04/29/24
06:59 06:59 06:59
Intake Total 1370 / 1370
Output Total 300 / 300 4300 / 4300
Balance -300 / -300 -2930 / -2930
Review of Systems
-
All other systems: Reviewed and negative
Physical Exam
-
General: Well Developed, Well Nourished, Comfortable, Respiratory Distress and Conversant
HEENT: Normocephalic, Atraumatic, Nose Appears Normal, Ears Appear Normal and Oxygen (4L NC)
Respiratory: Non Labored Respirations; Negative Accessory Resp Muscle Use
Cardiac: S1/S2, Irregular Rhythm and Tachycardic
GI: Soft, Nontender, Nondistended and Normal Bowel Sounds
Skin: Warm and Dry
Neuro: Awake and Alert
Psych: Calm and Intact Judgement/Insight
Data Reviewed
-
Labs: Labs Reviewed by me
--- NOTE | 2024-04-28 08:10 | PTCARENOTE ---
Assumed care of pt at 0715 following shift report. Pt easily woken to name for assessment and care. Pt received on O2 at 6l/min via NC w/ Pox 96%- tapering O2. Heparin gtt infusing at 1600 units/hr, Cardizem gtt at 10mg/hr. Celis patent and draining
clear straw colored urine. Pt denies any pain or SOB, reports 'I feel so much better than when I got here'. Physical assessment completed as documented. Comfort care provided. Call bear w/in pt reach and safe environment provided.
[2024-04-28] MEDS: COREG 3.125 MG PO (08:21)
[2024-04-28] MEDS: NICODERM TRANSDERMAL 21 MG TRANSDERM (08:22)
[2024-04-28] MEDS: LOW STRENGTH ASPIRIN 81 MG PO (08:22)
[2024-04-28] MEDS: NOVOLOG FLEXPEN-MODERATE RESISTANCE 3 UNITS SC (08:33)
[2024-04-28 08:44] LABS: Glucose - Point of Care 232 mg/dl (70-99)
--- NOTE | 2024-04-28 09:26 | W.PN.CARDCBS ---
Addendum entered and electronically signed by Tano Vásquez MD 04/28/24 10:45:
Okay to IVU from my standpoint
Original Note:
Today's Communication / Plan
-
Stay off diltiazem
Start ARB, valsartan 40 mg daily and uptitrate, switch to Entresto if possible
Will need to [place] SGLT2 antagonist
Add spironolactone if renal function remains stable
Continue IV Lasix
Change carvedilol to 6.25 twice daily
Likely cath on Tuesday
Impression / Plan
-
Primary Cutting And Creasing Press Operator: remotely seen by [facility] Cutting And Creasing Press Operator, details unknown
Assessment:
Acute hypoxic respiratory failure
Acute HFrEF
Atrial fibrillation with RVR, new diagnosis of unclear duration
Elevated troponin
Hyperglycemia, concern for diabetes, hgbA1c pending
Elevated LFTs
Leukocytosis
Elevated ddimer
CAD with [place] status post LAD PCI approximately 11 years ago at [facility]
Presumed history of paroxysmal atrial fibrillation
Hypertension
Hyperlipidemia
Ongoing tobacco use
ECHO 04/27/24: TDS, global hypokinesis with regional variability, EF 30 to 35%, mild concentric LVH with discrete upper septal thickening, aortic sclerosis, PAP 25 to 30 mmHg
Plan:
After presenting with pulmonary edema severe respiratory distress and respiratory failure requiring BiPAP, he looks much better, with underlying atrial fibrillation and EF 30-35% with evidence of severe anterior ischemia on EKG.
Happily his troponin has not risen substantially. His heart failure seems much better controlled today.
Will stop diltiazem, and increase carvedilol to 6.25 twice daily.
Continue IV Lasix
Start low-dose valsartan 40 mg a day and consider Entresto.
Goal will be to add SGLT2 antagonist if possible
Add spironolactone if renal function remains adequate.
Continue heparin and aspirin, eventually will need DOAC
Tentative cath Tuesday
Eventual consideration of cardioversion with or without transesophageal echo
Progress Note - Cutting And Creasing Press Operator
Subjective
Date of Service: April 28, 2024:
He feels much better today, had episode of severe dyspnea last night, now relatively bradycardic, diltiazem just discontinued
Current medications: Furosemide 40 mg IV daily, nicotine patch, IV heparin, aspirin 81 mg a day, IV diltiazem, carvedilol 3.125 mg twice daily
Allergies none
Medications at admission were none
172/105, pulse 89, respirate 18, afebrile, sats 96%, intake and output -3 L, weight is 84.5 kg, was 86.1 kg on admit, appears comfortable, fatigued, somewhat depressed, head neck exam unremarkable, diminished breath sounds in bases, irregular rate
and rhythm without obvious murmurs JVD okay, extremities without much edema, abdomen benign
EKG #2, atrial fibrillation/possibly flutter with septal FL, LVH, dramatic anterolateral T wave inversions progressed from initial EKG
White count 14.4, hemoglobin 16.3 platelets 245, BUN and creatinine 16 and 0.9, peak troponin is 0.278 proBNP was 1670 on admission
Echo 04/27/2024: EF 30-35% global hypokinesis with regional wall motion variability mild LVH, normal RV, aortic sclerosis, mild MR, normal pulmonary artery systolic pressure
Objective
Labs:
04/28/24 05:08
04/28/24 05:08
Labs
Hgb 16.3 g/dL (13.0-18.0) 04/28/24 05:08
Hct 47.1 % (39.0-52.0) 04/28/24 05:08
Plt Count 245 10^3/uL (130-400) 04/28/24 05:08
PT 14.3 Sec (11.4-14.6) 04/27/24 09:56
INR 1.13 04/27/24 09:56
APTT 49.7 Sec (23.4-35.0) H 04/28/24 05:08
Sodium 137 mmol/L (135-145) 04/28/24 05:08
Potassium 3.9 mmol/L (3.5-5.1) 04/28/24 05:08
BUN 16 mg/dl (9-20) 04/28/24 05:08
Creatinine 0.9 mg/dL (0.7-1.3) 04/28/24 05:08
Glucose 291 mg/dl (70-99) H 04/28/24 05:08
Troponins
04/27/24 04/27/24 04/27/24
04:50 09:56 16:21
Troponin I 0.039 H* 0.153 H* D 0.219 H* D
04/27/24 04/27/24 04/28/24
23:09 23:26 05:08
Troponin I Cancelled 0.278 H* D 0.169 H* D
Vital Signs and I&O:
Vital Signs
Temp Pulse Resp BP Pulse Ox
36.6 C 89 18 172/105 96
04/27/24 15:25 04/28/24 08:22 04/28/24 08:02 04/28/24 08:22 04/28/24 08:11
Vital Signs
Temp Pulse Resp BP Pulse Ox
36.6 C 89 18 172/105 96
04/27/24 15:25 04/28/24 08:22 04/28/24 08:02 04/28/24 08:22 04/28/24 08:11
Intake & Output
04/26/24 04/27/24 04/28/24 04/29/24
07:59 07:59 07:59 07:59
Intake Total 1396 / 1422
Output Total 300 / 300 4300 / 5300 1000 / 1000
Balance -300 / -300 -2904 / -3878 -974 / -974
Physical Exam
Physical Exam
See above
--- NOTE | 2024-04-28 11:45 | PTCARENOTE ---
Pt OOB to chair since visit from PT/OT. O2 down to 2l/min w/ POx 96%. Cardizem gtt off due to HR. Pt w/o changes from previous assessment findings. No new complaints.
[2024-04-28] MEDS: NOVOLOG FLEXPEN-MODERATE RESISTANCE 1 UNITS SC ×2 (12:28→17:51)
[2024-04-28 12:39] LABS: Glucose - Point of Care 192 mg/dl (70-99)
[2024-04-28 12:55] LABS: APTT 67.4 Sec (23.4-35.0)
[2024-04-28] MEDS: ALDACTONE 12.5 MG PO (13:22)
[2024-04-28] MEDS: DIOVAN 40 MG PO (13:23)
--- NOTE | 2024-04-28 15:31 | CM ---
CM met with patient in room. Patient confirmed demographics. Patient was staying in a camper close to his friend's home. He currently is staying in the friend's home. Patient does not have a history of VN, SNF or DME. Patient currently does not have
insurance coverage. Patient stated that he had been covered by [facility] medicaid, but it is not longer active.
CM provided patient with information on the [facility]. CM will continue to follow for DME or medication needs.
--- NOTE | 2024-04-28 15:48 | PTCARENOTE ---
Pt returned to bed for requested nap after being OOB in chair for 3hrs. Transported w/ this RN for ordered CT scan of Chest. Returned to room w/o complication. OOB in chair at present. Attempted to wean O2 to RA- Pox down to 89%. O2 reapplied at
2l/min w/ Pox improved to 95%. No additional changes from previous assessment findings. Call sifuentes remains w/in pt reach
[2024-04-28 18:01] LABS: Glucose - Point of Care 179 mg/dl (70-99)
--- NOTE | 2024-04-28 20:00 | PTCARENOTE ---
rec`d pt at 1900, OOB to chair. pt AAOx3, very pleasant. afib on monitor. hr low 100s. heparin gtt continued. 2L NC, POX 95%. coarse lung sounds, productive cough. pt able to walk from chair to bed w/ 1 person assist. harley in place, rt hand and
left AC flushed and patent. call sifuentes in reach, safe environment maintained.
[2024-04-28] MEDS: COREG 6.25 MG PO (20:58)
[2024-04-29] VITALS (32 sets, daily range): BP systolic 109–172; BP diastolic 88–135; BMI 29.1
--- NOTE | 2024-04-29 | PTCARENOTE ---
pt reassessed. no changes in pt assessment. call sifuentes in reach.
[2024-04-29 03:06] LABS: % Basophils 0.5 % (0-2); % Eosinophils 2.3 % (0-6); % Immature Granulocytes 0.4 % (0-0.5); % Lymphocytes 27.4 % (20.5-51.1); % Neutrophils 62.4 % (42.2-75.2); Absolute Basophils 0.1 10^3/uL (0-0.2); Absolute Eosinophils 0.3 10^3/uL (0-0.7); Absolute Immature Granulocytes 0.1 10^3/uL (0-0.05); Absolute Lymphocytes 3.8 10^3/uL (1.2-3.4); Absolute Neutrophils 8.6 10^3/uL (1.4-6.5); Hematocrit 44.5 % (39.0-52.0); Hemoglobin 15.8 g/dL (13.0-18.0); Mean Corp Hgb Conc. 35.5 g/dL (33.0-37.0); Mean Corpuscular Hgb 30.9 pg (27.0-31.0); Mean Corpuscular Volume 86.9 fL (80.0-94.0); Mean Platelet Volume 10.8 fL (7.4-10.4); Nucleated Red Blood Cells % 0 % (-); Platelet Count 218 10^3/uL (130-400); Red Blood Cell Count 5.12 10^6/uL (4.70-6.10); Red Cell Dist. Width 12.6 % (11.5-14.5); White Blood Cell Count 13.9 10^3/uL (4.8-10.8)
[2024-04-29 03:25] LABS: APTT 91.6 Sec (23.4-35.0)
[2024-04-29 04:23] LABS: ALT (SGPT) 99 U/L (0-50); AST (SGOT) 39 U/L (17-59); Albumin 3.8 g/dl (3.5-5.0); Alkaline Phosphatase 90 U/L (38-126); Blood Urea Nitrogen 20 mg/dl (9-20); Calcium 9.3 mg/dl (8.4-10.2); Carbon Dioxide 27 mmol/L (22-30); Chloride 102 mmol/L (98-107); Estimated Creatinine Clearance 101 ml/min; Glucose 166 mg/dl (70-99); Magnesium 1.7 mg/dl (1.6-2.3); Potassium 3.5 mmol/L (3.5-5.1); Sodium 139 mmol/L (135-145); Total Protein 5.8 g/dl (6.3-8.2); eGFR > 60.00
[2024-04-29 04:39] LABS: Direct Bilirubin 0.3 mg/dl (0.0-0.4)
--- NOTE | 2024-04-29 07:15 | W.PN.INTV ---
Today's Communication / Plan
Recommendations
Atrial fibrillation rate control
Diuresis
Cardiac catheterization
Observe off antibiotics
Transfer out of ICU-pulmonary will continue to follow
Assessment
-
58-year-old male homeless smoker of 2 packs of cigarettes daily with a history of CAD and stent but no other significant past medical history though he is a poor historian and does not seek medical attention often presented with severe shortness of
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
04/27/2024.
Respiratory failure-acute hypoxemic due to CHF
CHF-reduced EF-30%
SVT status post adenosine-now rapid atrial fibrillation
Troponin elevation
Transaminitis
Leukocytosis-WBC 16.7
Elevated D-dimer-1.16
Metabolic acidosis
Hyperglycemia-blood sugar 378
Left lower lobe consolidation/atelectasis-less likely pneumonia or malignancy
Right upper lobe pulmonary nodule-4 mm-incidentally noted CT 04/28/2024
Conditions present prior to admission:
CAD/stent-details unclear.
Probable COPD.
Tobacco addiction-2 packs daily.
Plan
Hemodynamics have improved-atrial fibrillation rate control improved as well as CHF
Wean supplemental oxygen
Assess discharge supplemental oxygen needs prior to discharge
BiPAP continues as needed-was dependent when he first came in-now liberated-not requiring
Nebulizers if needed-currently not bronchospastic and would avoid with significant tachycardia at this time
Aspiration precautions continues
Incentive spirometry encouraged
Atrial fibrillation rate control continues
Heparin drip
Nitroglycerin drip wean off
Cardiology [id number] reviewed--start ARB, switch to Entresto if possible, add spironolactone, carvedilol and Lasix and cardiac catheterization on Tuesday
Troponin trended
Echocardiogram 04/28/2024-EF 30-35%, diastolic function intermediate, aortic sclerosis, PA systolic 25-30
Continue diuresis as tolerated
Monitor renal function, electrolytes, intake/output, lower extremity edema and weight
Replace electrolytes as needed
Follow LFTs
Influenza negative
Observe off antibiotics
D-dimer positive
Lower extremity ultrasound 04/29/2024-no evidence for DVT bilaterally
CT chest 04/28/2024-no pulmonary embolism, small bilateral pleural effusions, left lower lobe atelectasis-less likely pneumonia or neoplasm, 4 mm solid right upper lobe pulmonary nodule, small patchy opacification posterior left apex
Monitor blood sugar
Insulin supplementation as needed
A1c elevated at 8.5
Smoking cessation counseling ongoing
DVT prophylaxis-on heparin drip
Nutrition
Activity per cardiology
Stable and could be transferred out of ICU-pulmonary will continue to follow
Will need outpatient CT chest follow-up in 3-4 months to ensure left lower lobe consolidation resolving and 4 mm solid right upper lobe nodule need to be followed as well
Outpatient pulmonary [id number] cessation counseling, yearly low-dose lung cancer screening CT, PFTs, etc.
Reviewed the patient's pertinent medical records including radiographs, management of respiratory failure, BiPAP management, microbiology, laboratory evaluations, and discussion with primary team, consultants, pharmacy, nutrition, physical therapy,
case management, charge nurse, critical care nursing, and respiratory therapy.
Diagnostic data:
Chest x-ray 04/27/2024-cardiomegaly with CHF
EKG 04/27/2024-atrial fibrillation with rapid ventricular response, septal infarct, ST and T wave abnormalities laterally
Subjective Dataa
Subjective Data
Date of Service:
Date of Service: April 29, 2024
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
Subjective:
Feels better, less short of breath, atrial fibrillation rate control improved, no chest pain, productive cough or abdominal pain
Review of Systems
General: Other (Per HPI)
Objective Data
Data Reviewed
Vital Signs / I&O / Oxygen:
Vital Signs
Temp Pulse Resp BP Pulse Ox
98.1 F 109 29 130/88 96
04/29/24 04:10 04/29/24 05:00 04/29/24 05:00 04/29/24 05:00 04/29/24 05:00
Intake and Output
04/28/24 04/29/24 04/30/24
06:59 06:59 06:59
Intake Total 1370 / 1396 1271 / 1271
Output Total 4300 / 4300 1600 / 1600
Balance -2930 / -2904 -329 / -329
SaO2 96
Nasal Cannula flow liters per 2
minute
Physical Exam
General: Respiratory Distress (n) and Comfortable
HEENT: Normocephalic, Anicteric and Moist Mucous Membranes
Cardiovascular: Irregular Rhythm and Murmur
Respiratory: Clear (Diminished breath sounds and prolonged expiratory time), Wheeze (n), Crackles (Basilar), Rhonchi (n), Non-Labored Respirations, Accessory Resp Muscle Use (n) and Stridor (n)
GI: Soft, Non Distended and Non Tender
Neurology: Awake, Alert and No Motor Deficits
Skin: Warm, Good Color, Cyanosis (n), Jaundice (n) and Rash (n)
Labs/Micro/Reports
Lab Data
04/29/24 02:56
04/29/24 02:56
Laboratory Results
04/28/24 04/28/24 04/29/24
12:24 19:52 02:56
APTT 67.4 H 77.0 H 91.6 H
Microbiology
04/27/24 07:55 Nasal Swab Influenza Types A & B (FLO) - Final
Negative for Influenza A & B, NAAT
Negative results must be combined with clinical observations
and patient history.
Nucleic Acid Amplification test (NAAT)performed on the
[employer] platform.
--- NOTE | 2024-04-29 07:33 | W.PN.HOSP.TC ---
Today's Communication/Plan
-
see A/P
Assessment / Plan
Assessment / Plan
HPI: 58-year-old homeless male without known past medical history, presented with shortness of breath. Patient is currently residing at a friend's house. Patient has been taking albuterol that he garnered from a friend.
He was found to be tachycardic and tachypneic by EMS. His heart rate was in the 180s so was given 6 mg adenosine. After the adenosine, there EKG showed rapid A-fib so medics gave verapamil.
They also administered 2 sublingual nitro which seemed to help. They put him on CPAP which helped with his breathing. He was able to speak in short sentences.
In the ED, he remained in respiratory distress, only able to speak in one-word sentences initially, was diaphoretic. He was placed on BiPAP which helped with his respiratory distress.
A/P:
# Acute hypoxic respiratory failure, likely due to pulmonary edema from new diagnosed acute systolic heart failure
BiPAP -> 4L NC -> off O2 on RA
Chest x-ray noted Cardiomegaly with increased pulmonary vascularity.
s/p Nitro drip from the ED
Cont IV lasix 40 mg daily
echo noted reduced EF at 30-35%. Diastolic function indeterminate due to atrial fibrillation. Estimated PASP 25-30 mmHg
Cardiology planning for cardiac catheterization
# Presumed new onset A-fib RVR
s/p Cardizem drip
Added coreg adjusted to 6.25 mg BID,
IV Lopressor PRN for rate control
Cont heparin drip
# Troponin elevation may be due to NSTEMI vs non-ischemic
EKG noted A fib RVR
Troponin peaked at 0.278
# Elevated LFT, presumed congestion versus reactive, improving
Continue to trend LFT
# Leukocytosis, possibly reactive, improving
pt is non-toxic appearing
CRP at 14
Procalcitonin 0.14
Monitor temperature curve
Observe without antibiotic for now
# Elevated d dimer likely reactive (acute phase protein)
CT PE negative for PE
could check LE US for completeness sake
Cont current heparin drip
# 4 mm solid pulmonary nodule in the right upper lobe.
consider outpt work up
DVT prophylaxis: heparin drip
Full code
Anticipated Discharge: > 48 hours
Subjective/Interval History
-
Date of Service: April 29, 2024
Objective Data
-
Labs:
Laboratory Results
04/28/24 04/29/24 04/29/24
19:52 02:56 08:30
WBC 13.9 H
Hgb 15.8
Hct 44.5
Plt Count 218
APTT 77.0 H 91.6 H Pending
Sodium 139
Potassium 3.5
Chloride 102
Carbon Dioxide 27
BUN 20
Creatinine 0.8
Glucose 166 H
Calcium 9.3
Total Bilirubin 1.0
AST 39
ALT 99 H
Alkaline Phosphatase 90
Vital Signs:
Vital Signs
Temp Pulse Resp BP Pulse Ox
36.6 C 109 29 130/88 96
04/29/24 07:00 04/29/24 05:00 04/29/24 05:00 04/29/24 05:00 04/29/24 05:00
I&O
04/28/24 04/29/24 04/30/24
06:59 06:59 06:59
Intake Total 1370 / 1396 1271 / 1271
Output Total 4300 / 4300 1600 / 1600
Balance -2930 / -2904 -329 / -329
Review of Systems
-
All other systems: Reviewed and negative
Physical Exam
-
General: Well Developed, Well Nourished, Comfortable and Conversant; Negative Respiratory Distress
HEENT: Normocephalic, Atraumatic, Nose Appears Normal and Ears Appear Normal; Negative Oxygen
Respiratory: Non Labored Respirations; Negative Accessory Resp Muscle Use
Cardiac: S1/S2, Irregular Rhythm and Tachycardic
GI: Soft, Nontender, Nondistended and Normal Bowel Sounds
Skin: Warm and Dry
Neuro: Awake and Alert
Psych: Calm and Intact Judgement/Insight
Data Reviewed
-
Medical Tests (Nuc Med, Echo etc): Report Reviewed by me (echo)
Labs: Labs Reviewed by me
[2024-04-29 08:11] LABS: Glucose - Point of Care 239 mg/dl (70-99)
--- NOTE | 2024-04-29 08:15 | PTCARENOTE ---
Assumed care of pt at 0715 following shift report. Pt awake and resting quietly in bed. Heparin infusing at 1700 units/hr. Pt denies pain or SOB. RA Pox 95%. Will continue to monitor Pox. Physical assessment completed as documented. Call bear w/in
pt reach.
[2024-04-29] MEDS: COREG 6.25 MG PO (09:14)
[2024-04-29] MEDS: LOW STRENGTH ASPIRIN 81 MG PO (09:14)
[2024-04-29] MEDS: KCL 40 MEQ PO (09:14)
[2024-04-29] MEDS: NICODERM TRANSDERMAL 21 MG TRANSDERM (09:14)
[2024-04-29] MEDS: NOVOLOG FLEXPEN-MODERATE RESISTANCE 3 UNITS SC ×2 (09:15→11:49)
[2024-04-29] MEDS: LASIX 40 MG IV (09:19)
[2024-04-29 09:45] LABS: APTT 98.5 Sec (23.4-35.0)
[2024-04-29] MEDS: DIOVAN 40 MG PO (11:01)
[2024-04-29] MEDS: ALDACTONE 12.5 MG PO (11:01)
[2024-04-29 11:33] LABS: Glucose - Point of Care 245 mg/dl (70-99)
--- NOTE | 2024-04-29 12:00 | PTCARENOTE ---
Pt has been OOB in chair for several hours and tolerating well. No changes from previous assessment findings or complaints received. Safe environment maintained.
[2024-04-29] MEDS: HEPARIN 25000 UNITS/250 ML IV (14:50)
--- NOTE | 2024-04-29 15:41 | W.PN.CARDCBS ---
Addendum entered and electronically signed by Tano Vásquez MD 04/29/24 16:32:
Small amounts of blood in urine
Original Note:
Today's Communication / Plan
-
Switch carvedilol to metoprolol tartrate 50 every 6, will consolidate to metoprolol ER, IV metoprolol x 3
Continue heparin
Add spironolactone, increase valsartan
Consider ARNI, SGLT2 antagonist
Cardiac catheterization in a.m.
Impression / Plan
-
Primary Mammography Tech: remotely seen by [facility] Mammography Tech, details unknown
Assessment:
Acute hypoxic respiratory failure
Acute HFrEF
Atrial fibrillation with RVR, new diagnosis of unclear duration
Elevated troponin
Hyperglycemia, concern for diabetes, hgbA1c pending
Elevated LFTs
Leukocytosis
Elevated ddimer
CAD with [place] status post LAD PCI approximately 11 years ago at [facility]
Presumed history of paroxysmal atrial fibrillation
Hypertension
Hyperlipidemia
Ongoing tobacco use
ECHO 04/27/24: TDS, global hypokinesis with regional variability, EF 30 to 35%, mild concentric LVH with discrete upper septal thickening, aortic sclerosis, PAP 25 to 30 mmHg
Plan:
He is not in acute distress but remains in atrial fibrillation and heart rate had been controlled but now he has rapid ventricular response.
Will switch carvedilol to metoprolol tartrate 50 mg every 6 and then consolidate to metoprolol succinate when stable. Use IV metoprolol now.
Add spironolactone, increase valsartan.
Not clear that patient will be able to afford Entresto or Farxiga
Continue heparin, transition to DOAC when able, warfarin if DOAC not affordable
Cardiac catheterization on Tuesday
Thereafter to address atrial fibrillation
Progress Note - Mammography Tech
Subjective
Date of Service: April 29, 2024:
Patient without complaints, but heart rate persistently over 100
Current meds: Furosemide 40 mg IV daily, nicotine patch, IV heparin, aspirin 81 mg a day, valsartan 40 mg daily, spironolactone 12.5 mg daily, carvedilol 6.25 mg twice daily
151/104, heart rate 124, respiratory 29, afebrile, sats 94% weight is 82.9 kg, down 1.6 kg, somewhat flat affect, depressed, head neck exam unremarkable lungs are relatively clear, tachycardic irregular rate and rhythm, abdomen benign not much edema
neuro nonfocal
White count 13.9, hemoglobin 15.8, platelets 218, BUN and creatinine 20 and 0.8, potassium 3.5
Objective
Labs:
04/29/24 02:56
04/29/24 02:56
Labs
Hgb 15.8 g/dL (13.0-18.0) 04/29/24 02:56
Hct 44.5 % (39.0-52.0) 04/29/24 02:56
Plt Count 218 10^3/uL (130-400) 04/29/24 02:56
PT 14.3 Sec (11.4-14.6) 04/27/24 09:56
INR 1.13 04/27/24 09:56
APTT 98.5 Sec (23.4-35.0) H 04/29/24 09:26
Sodium 139 mmol/L (135-145) 04/29/24 02:56
Potassium 3.5 mmol/L (3.5-5.1) 04/29/24 02:56
BUN 20 mg/dl (9-20) 04/29/24 02:56
Creatinine 0.8 mg/dL (0.7-1.3) 04/29/24 02:56
Glucose 166 mg/dl (70-99) H 04/29/24 02:56
Troponins
04/27/24 04/27/24 04/27/24
04:50 09:56 16:21
Troponin I 0.039 H* 0.153 H* D 0.219 H* D
04/27/24 04/27/24 04/28/24
23:09 23:26 05:08
Troponin I Cancelled 0.278 H* D 0.169 H* D
04/28/24
06:30
Troponin I Cancelled
Vital Signs and I&O:
Vital Signs
Temp Pulse Resp BP Pulse Ox
37.1 C 124 29 151/104 94
04/29/24 15:00 04/29/24 09:14 04/29/24 05:00 04/29/24 11:01 04/29/24 13:19
Vital Signs
Temp Pulse Resp BP Pulse Ox
37.1 C 124 29 151/104 94
04/29/24 15:00 04/29/24 09:14 04/29/24 05:00 04/29/24 11:01 04/29/24 13:19
Intake & Output
04/27/24 04/28/24 04/29/24 04/30/24
07:59 07:59 07:59 07:59
Intake Total 1396 / 1422 1262 / 1279 616 / 616
Output Total 300 / 300 4300 / 5300 1600 / 1600 600 / 600
Balance -300 / -300 -2904 / -3878 -338 / -321
Physical Exam
Physical Exam
See above
[2024-04-29] MEDS: LOPRESSOR 5 MG IV ×3 (15:58→16:20)
--- NOTE | 2024-04-29 16:32 | PTCARENOTE ---
Ordered Lopressor 5mg IV x3 doses, 10 minutes apart, administered w/ HR improved to upper 90's to 100's while at rest in bed. BP remains elevated at 172/123. Pt's urine noted to be blood tinged. Dr Vásquez notified via TT of HR, BP and blood tinged
urine. New orders received.
[2024-04-29] MEDS: DIOVAN 80 MG PO (16:38)
[2024-04-29] MEDS: NOVOLOG FLEXPEN-MODERATE RESISTANCE SC (16:46)
[2024-04-29 16:57] LABS: Glucose - Point of Care 144 mg/dl (70-99)
[2024-04-29] MEDS: LOPRESSOR 50 MG PO (18:32)
--- NOTE | 2024-04-29 20:58 | PTCARENOTE ---
Received pt at 1900, AAOx3. Afib on tele, HR remains ~110. BP 160s/120s. Dr. Vásquez notified- order for 10mg cardizem IVP and cardizem gtt ordered to maintain HR 80-100. Will monitor closely. On RA, lungs CTA but dim. Occ. cough noted. + bowel
sounds. Low chol/2gNa diet. Will be NPO at midnight for cath tomorrow. Pt. aware. Urinal at bedside. R hand #18 with heparin gtt infusing at 1700units/hr. Next PTT in AM. Call sifuentes in reach
[2024-04-29] MEDS: CARDIZEM 10 MG IV (21:24)
[2024-04-29] MEDS: CARDIZEM 125 IV (21:29)
[2024-04-30] VITALS (29 sets, daily range): BP systolic 126–177; BP diastolic 78–138; BMI 28.4
[2024-04-30] MEDS: LOPRESSOR 50 MG PO ×5 (00:10→23:12)
[2024-04-30 03:51] LABS: % Basophils 0.6 % (0-2); % Eosinophils 2.5 % (0-6); % Immature Granulocytes 0.3 % (0-0.5); % Lymphocytes 33.5 % (20.5-51.1); % Monocytes 7.1 % (1.7-9.3); Absolute Basophils 0.1 10^3/uL (0-0.2); Absolute Eosinophils 0.3 10^3/uL (0-0.7); Absolute Lymphocytes 3.6 10^3/uL (1.2-3.4); Absolute Monocytes 0.8 10^3/uL (0.1-0.6); Absolute Neutrophils 6.1 10^3/uL (1.4-6.5); Hematocrit 46.7 % (39.0-52.0); Hemoglobin 16.4 g/dL (13.0-18.0); Mean Corp Hgb Conc. 35.1 g/dL (33.0-37.0); Mean Corpuscular Hgb 31.5 pg (27.0-31.0); Mean Corpuscular Volume 89.6 fL (80.0-94.0); Mean Platelet Volume 11.1 fL (7.4-10.4); Nucleated Red Blood Cells % 0 % (-); Platelet Count 210 10^3/uL (130-400); Red Blood Cell Count 5.21 10^6/uL (4.70-6.10); Red Cell Dist. Width 12.3 % (11.5-14.5); White Blood Cell Count 10.9 10^3/uL (4.8-10.8)
[2024-04-30 04:17] LABS: ALT (SGPT) 83 U/L (0-50); APTT 92.9 Sec (23.4-35.0); AST (SGOT) 35 U/L (17-59); Albumin 3.8 g/dl (3.5-5.0); Alkaline Phosphatase 89 U/L (38-126); Blood Urea Nitrogen 20 mg/dl (9-20); Calcium 9.6 mg/dl (8.4-10.2); Carbon Dioxide 26 mmol/L (22-30); Chloride 100 mmol/L (98-107); Direct Bilirubin 0.3 mg/dl (0.0-0.4); Estimated Creatinine Clearance 80 ml/min; Glucose 162 mg/dl (70-99); Magnesium 1.9 mg/dl (1.6-2.3); Potassium 3.8 mmol/L (3.5-5.1); Sodium 139 mmol/L (135-145); Total Bilirubin 0.9 mg/dl (0.2-1.3); Total Protein 6.1 g/dl (6.3-8.2); eGFR > 60.00
[2024-04-30] MEDS: HEPARIN 25000 UNITS/250 ML IV (04:58)
--- NOTE | 2024-04-30 05:02 | PTCARENOTE ---
Cardizem gtt titrated to off ~0130. HR 70s-80s, afib. Pt. awake most of the night but resting now. Has been NPO since midnight. PTT therapeutic, heparin gtt remains at 1700units. Pt. without complaints.
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
[2024-04-30 08:16] LABS: Glucose - Point of Care 194 mg/dl (70-99)
[2024-04-30] MEDS: NICODERM TRANSDERMAL 21 MG TRANSDERM (08:19)
[2024-04-30] MEDS: LOW STRENGTH ASPIRIN 81 MG PO (08:20)
[2024-04-30] MEDS: LASIX 40 MG IV (08:20)
[2024-04-30] MEDS: DIOVAN 80 MG PO (08:20)
[2024-04-30] MEDS: ALDACTONE 12.5 MG PO (08:21)
--- NOTE | 2024-04-30 09:20 | W.PN.HOSP.TC ---
Today's Communication/Plan
-
Cardiac cath with multivessel disease
Heparin drip to be continued (without a bolus) 6 hours post cath today -- confirmed this with Dr. Olson
Assessment / Plan
Assessment / Plan
Physical Exam
Physical Exam was not performed as patient was not present in his room at the time of attempted patient encounter.
Assessment/Plan
HPI: 58-year-old homeless male without known past medical history, presented with shortness of breath. Patient is currently residing at a friend's house. Patient has been taking albuterol that he garnered from a friend.
He was found to be tachycardic and tachypneic by EMS. His heart rate was in the 180s so was given 6 mg adenosine. After the adenosine, there EKG showed rapid A-fib so medics gave verapamil.
They also administered 2 sublingual nitro which seemed to help. They put him on CPAP which helped with his breathing. He was able to speak in short sentences.
In the ED, he remained in respiratory distress, only able to speak in one-word sentences initially, was diaphoretic. He was placed on BiPAP which helped with his respiratory distress.
# Acute hypoxic respiratory failure, likely due to pulmonary edema from new diagnosed acute systolic heart failure
BiPAP -> 4L NC -> off O2 on RA
Chest x-ray noted Cardiomegaly with increased pulmonary vascularity.
s/p Nitro drip from the ED
Cont IV lasix 40 mg daily
echo noted reduced EF at 30-35%. Diastolic function indeterminate due to atrial fibrillation. Estimated PASP 25-30 mmHg
Cardiac catheterization showed: 'Significant multivessel coronary artery disease' and 'Elevated LVEDP at 28 mmHg'
CABG evaluation per cardiothoracic team
# Presumed new onset A-fib RVR
s/p Cardizem drip
Added coreg adjusted to 6.25 mg BID,
IV Lopressor PRN for rate control
Heparin drip to be continued (without a bolus) 6 hours post cath today
# Troponin elevation may be due to NSTEMI vs non-ischemic
EKG noted A fib RVR
Troponin peaked at 0.278
# Elevated LFT, presumed congestion versus reactive, improving
Continue to trend LFT
# Leukocytosis, possibly reactive, improving
pt is non-toxic appearing
CRP at 14
Procalcitonin 0.14
Monitor temperature curve
Observe without antibiotic for now
# Elevated d dimer likely reactive (acute phase protein)
CT PE negative for PE
could check LE US for completeness sake
Cont current heparin drip
# 4 mm solid pulmonary nodule in the right upper lobe.
consider outpt work up
DVT prophylaxis: heparin drip
Full code
Anticipated Discharge: > 48 hours
Subjective/Interval History
-
Date of Service: April 30, 2024
Patient was not present in his room at the time of attempted patient encounter. Case was discussed with patient's nurse.
Objective Data
-
Labs:
Laboratory Results
04/30/24
03:24
WBC 10.9 H
Hgb 16.4
Hct 46.7
Plt Count 210
APTT 92.9 H
Sodium 139
Potassium 3.8
Chloride 100
Carbon Dioxide 26
BUN 20
Creatinine 0.9
Glucose 162 H
Calcium 9.6
Total Bilirubin 0.9
AST 35
ALT 83 H
Alkaline Phosphatase 89
Vital Signs:
Vital Signs
Temp Pulse Resp BP Pulse Ox
97.5 F 93 16 143/113 94
04/30/24 07:37 04/30/24 08:00 04/30/24 07:37 04/30/24 07:37 04/30/24 08:00
I&O
04/29/24 04/30/24 05/01/24
06:59 06:59 06:59
Intake Total 1271 / 1288 1638 / 1638
Output Total 1600 / 1600 1225 / 1225
Balance -329 / -312 413 / 413
[2024-04-30] MEDS: NOVOLOG FLEXPEN-MODERATE RESISTANCE 1 UNITS SC (09:22)
--- NOTE | 2024-04-30 09:38 | W.PN.PUL3 ---
Today's Communication / Plan
-
Cardiac cath today
Otherwise, weaned to RA and stable
Continue nebs PRN
Smoking cessation
Will need outpatient FU, this was reviewed
Continued on IV lasix, cardiac management ongoing
Will await results of cath
Assessment
-
58-year-old male homeless smoker of 2 packs of cigarettes daily with a history of CAD and stent but no other significant past medical history though he is a poor historian and does not seek medical attention often presented with severe shortness of
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
04/27/2024.
Respiratory failure-acute hypoxemic due to CHF
CHF-reduced EF-30%
SVT status post adenosine-now rapid atrial fibrillation
Troponin elevation
Transaminitis
Leukocytosis-WBC 16.7
Elevated D-dimer-1.16
Metabolic acidosis
Hyperglycemia-blood sugar 378
Left lower lobe consolidation/atelectasis-less likely pneumonia or malignancy
Right upper lobe pulmonary nodule-4 mm-incidentally noted CT 04/28/2024
Conditions present prior to admission:
CAD/stent-details unclear.
Probable COPD.
Tobacco addiction-2 packs daily.
Plan
Hemodynamics have improved-atrial fibrillation rate control improved as well as CHF
Wean supplemental oxygen, he is now weaned to RA and comfortable
Nebulizers if needed-currently not bronchospastic and would avoid with significant tachycardia at this time
Aspiration precautions continues
Incentive spirometry encouraged
Atrial fibrillation rate control continues/Heparin drip
Nitroglycerin drip wean off
Cardiology [id number]-wbanxrmuxmxwmm reviewed--start ARB, switch to Entresto if possible, add spironolactone, carvedilol and Lasix and cardiac catheterization on Tuesday
Troponin trended
Echocardiogram 04/28/2024-EF 30-35%, diastolic function intermediate, aortic sclerosis, PA systolic 25-30
Continue diuresis as tolerated--IV lasix
Monitor renal function, electrolytes, intake/output, lower extremity edema and weight
Replace electrolytes as needed
Cardiac cath planning for this AM
Follow LFTs
Influenza negative
Observe off antibiotics
D-dimer positive
Lower extremity ultrasound 04/29/2024-no evidence for DVT bilaterally
CT chest 04/28/2024-no pulmonary embolism, small bilateral pleural effusions, left lower lobe atelectasis-less likely pneumonia or neoplasm, 4 mm solid right upper lobe pulmonary nodule, small patchy opacification posterior left apex
Monitor blood sugar
Insulin supplementation as needed
A1c elevated at 8.5
Smoking cessation counseling ongoing
DVT prophylaxis-on heparin drip
Nutrition
Activity per cardiology
Will need outpatient CT chest follow-up in 3-4 months to ensure left lower lobe consolidation resolving and 4 mm solid right upper lobe nodule need to be followed as well
Outpatient pulmonary irwbhc-bl-qaaomxq cessation counseling, yearly low-dose lung cancer screening CT, PFTs, etc.
Reviewed with patient again
Diagnostic Data:
Chest x-ray 04/27/2024-cardiomegaly with CHF
CT Chest 04/19/24- 1. No CTA evidence for an acute pulmonary thromboembolism.
2. Small bilateral pleural effusions.
3. Dense bandlike opacity in the anterior left lower lobe favored to represent atelectasis. Pneumonia or neoplasm would be considered less likely but continued imaging follow-up can be performed.
4. Posterior right lower lobe compressive atelectasis.
5. 4 mm solid pulmonary nodule in the right upper lobe.
6. Small patchy opacities in the posterior left lung apex, potentially mild residual alveolar edema or mild pneumonitis.
Duplex 04/29/24 - IMPRESSION: No evidence of deep venous thrombosis bilaterally.
EKG 04/27/2024-atrial fibrillation with rapid ventricular response, septal infarct, ST and T wave abnormalities laterally
ECHO 04/27/24- Technically difficult study. Normal left ventricular chamber size. Moderately reduced left ventricular systolic function. Global hypokinesis with regional variability. Left ventricular ejection fraction is 30-35% by visual
assessment. Mild concentric left ventricular hypertrophy with discrete upper septal thickening. Diastolic function indeterminate due to atrial fibrillation. Normal right ventricular size and function. Aortic sclerosis without stenosis. Estimated
pulmonary artery pressure of 25-30 mmHg, assuming a right atrial pressure of 3 mmHg. No prior study for comparison
Total time spent on this consultation __51__ includes review of history, physical exam, medications, laboratory data, personal review of imaging, extensive review of outpatient records, discussion with care team and respiratory therapy.
Subjective Data
-
Date of Service:
Date of Service: April 30, 2024
Chief Complaint: Pulmonary Follow Up
Subjective:
No acute events ON, remains stable on RA
No new complaints
Objective Data
Data Reviewed
Vital Signs / I&O / Oxygen:
Vital Signs
Temp Pulse Resp BP Pulse Ox
97.5 F 93 16 143/113 94
04/30/24 07:37 04/30/24 08:00 04/30/24 07:37 04/30/24 07:37 04/30/24 08:00
Intake and Output
04/29/24 04/30/24 05/01/24
06:59 06:59 06:59
Intake Total 1271 / 1288 1638 / 1638
Output Total 1600 / 1600 1225 / 1225
Balance -329 / -312 413 / 413
SaO2 94
Nasal Cannula flow liters per 2
minute
Physical Exam
General: Comfortable and Other (NAD)
HEENT: Normocephalic, Anicteric and Moist Mucous Membranes
Cardiovascular: S1-S2 and Regular Rhythm
Respiratory: Clear and Non-Labored Respirations
GI: Soft, Non Distended and Non Tender
Neurology: Awake, Alert, Oriented, AO x 3 and No Motor Deficits
Skin: Warm, Dry and Good Color
Labs/Micro/Reports
Lab Data
04/30/24 03:24
04/30/24 03:24
Laboratory Results
04/29/24 04/30/24
03:24
APTT 98.5 H 92.9 H
Microbiology
04/27/24 07:55 Nasal Swab Influenza Types A & B (FLO) - Final
Negative for Influenza A & B, NAAT
Negative results must be combined with clinical observations
and patient history.
Nucleic Acid Amplification test (NAAT)performed on the
[employer] platform.
[2024-04-30 11:32] LABS: Glucose - Point of Care 206 mg/dl (70-99)
[2024-04-30] MEDS: NOVOLOG FLEXPEN-MODERATE RESISTANCE 3 UNITS SC (11:40)
--- NOTE | 2024-04-30 13:47 | PTCARENOTE ---
Patient sent to the [employer], voided in the urinal
--- NOTE | 2024-04-30 14:58 | PTCARENOTE ---
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 A-FIB HR 106, BP 157/92. Right radial band intact. POX 94% on room air
[2024-04-30] MEDS: NOVOLOG FLEXPEN-MODERATE RESISTANCE SC (15:35)
[2024-04-30 15:36] LABS: Glucose - Point of Care 134 mg/dl (70-99)
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
--- NOTE | 2024-04-30 16:08 | ITS.CL.CATH ---
Director Game - Catheterization
Cardiac Catheterization
Procedure Report:
LEFT HEART CATHETERIZATION
Date of Procedure: April 30, 2024
Referring: Tano Vásquez
PROCEDURES:
1. Left heart catheterization, coronary angiogram.
2. Ultrasound-guided access
INDICATION: Acute hypoxic respiratory failure in the setting of decompensated heart failure, new onset atrial fibrillation with RVR and NSTEMI with low level troponins
ACCESS: Right radial artery, 6 Albanian sheath, under ultrasound-guided
HEMODYNAMICS : (mmHg)
AO (s/d) : 153/111
LV (s/d) : 166/20
LVEDP : 28
CORONARY FINDINGS
DOMINANCE: Right
LEFT MAIN: The left main artery is a large-caliber vessel which gives rise to the left anterior descending artery a small to medium caliber ramus intermedius branch and the left circumflex artery. There is mild diffuse atherosclerotic plaque.
LEFT ANTERIOR DESCENDING: The left anterior descending artery is a large-caliber vessel which gives rise to 1 major large caliber diagonal branch as it courses through the anterior interventricular groove and wraps around the apex. There is 70 to
80% mid LAD in-stent restenosis at the level of the takeoff of the diagonal branch. The 1 has a eccentric 80 to 85% stenosis at the ostium. Distal LAD and D1 are both reasonable bypass target
CIRCUMFLEX: The left circumflex artery is a medium caliber vessel which gives rise to 2 major obtuse marginal branches. Proximal and mid left circumflex have 2 focal serial 60 to 70% stenosis. OM1 is either very small in caliber or occluded
filling from left to left collaterals.
RAMUS INTERMEDIUS: The ramus intermedius branch is a small to medium caliber branching vessel with a significant 85% stenosis in the proximal portion with GURMEET II flow into the distal vessel.
RIGHT CORONARY ARTERY: The right coronary artery is a large-caliber, dominant vessel which gives rise to a dual RPDA system and a small left posterolateral system. There is moderate diffuse ostial to proximal RCA stenosis up to 40%. Mid RCA has a
irregular hazy, calcified 40% stenosis. Lower RPDA has a focal 80% stenosis. Distal RPDA is a good bypass target.
SEDATION: 24 minutes of procedural sedation was utilized. An independent electromedical service engineer was present to assist with and help manage the patient's level of consciousness and physiologic status.
RADIATION SUMMARY: Fluoro Time (min): 2 point, Dose (mGy): 362, DAP (Gy.cm2) : 24.80
Closure Device: Vascular band over right radial artery, 10 cc of air.
CONCLUSIONS
1. Significant multivessel coronary artery disease.
2. Elevated LVEDP at 28 mmHg[address]
RECOMMEND[address]. CT surgery consult for consideration of coronary artery bypass grafting to LAD, D1, RPDA, possibly ramus intermedius artery, questionable OM1
2. Aggressive management of cardiovascular risk factors and goal-directed medical therapy for ischemic cardiomyopathy with management of underlying new onset atrial fibrillation with RVR with amiodarone and anticoagulation.
3. Wean radial band per protocol.
4. Eventual referral for outpatient cardiac rehab.
Copy to: Tano Vásquez.
Belen Olson MD, FACC, [facility]
[2024-04-30] MEDS: CORDARONE 518 MG IV (16:39)
--- NOTE | 2024-04-30 16:53 | PTCARENOTE ---
New IV placed in left hand, Amino gtt started
--- NOTE | 2024-04-30 17:06 | CM ---
spoke to pt in room, he lives with his friend in a 1 story home with 5 steps to enter. his friend helps him and gets the food, pt cooks the food. his friend will most probably pick him up, but pt stated that he has other friends who could help. he
does not have insurance and will be seen by [facility] to help him with the MA applic. he tells me that he has very limited income. plan is for CABG 05/03- cm to go over preop teaching.
--- NOTE | 2024-04-30 18:44 | PTCARENOTE ---
Right radial band off, dry sterile dressing. Amino infusing in left hand #22 gauge. BP 139/95, HR 90-100's A-FIB. Denies pain or shortness of breath, call sifuentes in reach
[2024-04-30 21:57] LABS: Glucose - Point of Care 149 mg/dl (70-99)
[2024-05-01] VITALS (16 sets, daily range): BP systolic 133–163; BP diastolic 91–138; PULSE 98; BMI 28.3
--- NOTE | 2024-05-01 01:04 | PTCARENOTE ---
Heparin restarted at 2029 as per order; amiodarone running at 0.5 mg/min. Pt. remains in A-fib, rate 80's-low 100's. Right radial cath site dressing CDI with no hematoma and good radial pulse. No complaints of chest pain. Pt. resting quietly.
[2024-05-01] MEDS: LOPRESSOR 5 MG IV (02:56)
[2024-05-01] MEDS: HEPARIN 25000 UNITS/250 ML IV ×2 (03:03→17:31)
[2024-05-01 03:08] LABS: Hematocrit 43.7 % (39.0-52.0); Hemoglobin 15.6 g/dL (13.0-18.0); Mean Corp Hgb Conc. 35.7 g/dL (33.0-37.0); Mean Corpuscular Hgb 30.7 pg (27.0-31.0); Platelet Count 202 10^3/uL (130-400); Red Blood Cell Count 5.08 10^6/uL (4.70-6.10); Red Cell Dist. Width 12.4 % (11.5-14.5); White Blood Cell Count 10.2 10^3/uL (4.8-10.8)
[2024-05-01 03:13] LABS: INR 1.17; PT 14.7 Sec (11.4-14.6)
[2024-05-01 03:14] LABS: APTT 81.4 Sec (23.4-35.0)
[2024-05-01 03:17] LABS: ALT (SGPT) 71 U/L (0-50); AST (SGOT) 37 U/L (17-59); Albumin 3.6 g/dl (3.5-5.0); Alkaline Phosphatase 82 U/L (38-126); Blood Urea Nitrogen 22 mg/dl (9-20); Carbon Dioxide 21 mmol/L (22-30); Chloride 97 mmol/L (98-107); Direct Bilirubin 0.3 mg/dl (0.0-0.4); Estimated Creatinine Clearance 90 ml/min; Glucose 342 mg/dl (70-99); Potassium 3.4 mmol/L (3.5-5.1); Sodium 133 mmol/L (135-145); Total Protein 5.8 g/dl (6.3-8.2); eGFR > 60.00
[2024-05-01] MEDS: LOPRESSOR 50 MG PO ×4 (05:12→23:06)
[2024-05-01] MEDS: KCL 40 MEQ PO (06:22)
[2024-05-01 07:23] LABS: Glucose - Point of Care 167 mg/dl (70-99)
[2024-05-01 08:32] LABS: Glucose - Point of Care 174 mg/dl (70-99)
[2024-05-01] MEDS: NOVOLOG FLEXPEN-MODERATE RESISTANCE 1 UNITS SC (08:32)
[2024-05-01] MEDS: NICODERM TRANSDERMAL 21 MG TRANSDERM (08:37)
[2024-05-01] MEDS: ALDACTONE 12.5 MG PO (08:38)
[2024-05-01] MEDS: DIOVAN 80 MG PO (08:38)
[2024-05-01] MEDS: LOW STRENGTH ASPIRIN 81 MG PO (08:38)
[2024-05-01 09:13] LABS: APTT 98.9 Sec (23.4-35.0)
--- NOTE | 2024-05-01 09:34 | W.PN.CARDCBS ---
Addendum entered and electronically signed by Gamaliel Lindsey MD 05/01/24 13:03:
I saw and examined the patient.
The WELDING MACHINE OPERATOR THERMIT or PA's note was reviewed and I agree with the note.
Comment: General: Well developed, well nourished in NAD.
Neck: Supple, no JVD, HJR, carotids +2 B/L, no bruits bilaterally.
Heart: Non displaced PMI, Irreg, no murmurs, No S3, S4, no rubs.
Lungs: Scattered rhonchi
Extremities: No clubbing, cyanosis or edema bilaterally.
Neuro: Grossly nonfocal, awake, alert and oriented x3.
Change IV amiodarone to p.o. for rate control of A-fib. Await CABG timing. Valsartan and spironolactone on hold preop
Original Note:
Today's Communication / Plan
-
transition IV to po amio
replete K
holding valsartan, spironolactone preop
CABG eval underway
Impression / Plan
-
Primary Contact Center Agent: remotely seen by [facility] Contact Center Agent, details unknown
Assessment:
Acute hypoxic respiratory failure
Acute HFrEF
Atrial fibrillation with RVR, new diagnosis of unclear duration
Elevated troponin
Hyperglycemia, concern for diabetes, hgbA1c pending
Elevated LFTs
Leukocytosis
Elevated ddimer
CAD with [place] status post LAD PCI approximately 11 years ago at [facility]
Presumed history of paroxysmal atrial fibrillation
Hypertension
Hyperlipidemia
Ongoing tobacco use
ECHO 04/27/24: TDS, global hypokinesis with regional variability, EF 30 to 35%, mild concentric LVH with discrete upper septal thickening, aortic sclerosis, PAP 25 to 30 mmHg
Plan:
-he is being diuresed, weight down trending on IV lasix 40mg daily. Cr stable at 0.8.
-replete K
-he remains in afib, however HRs improved, presently in 90s. will attempt to transition from IV amiodarone to po amio 400mg TID
-continue lopressor 50mg Q6H
-continue IV heparin. eventual OAC vand cheondoism of SR
-CABG eval underway. for PFTs and carotid US today
-EF 30-35% by echo. holding valsartan, spironolactone in prep for CABG, d/w CT surgery, tentatively 05/03
-unlikely able to afford SGLT2 inhibitor
-tobacco cessation
Progress Note - Contact Center Agent
Subjective
Date of Service: May 01, 2024
No complaints
Objective
Labs:
05/01/24 02:31
05/01/24 02:31
Labs
Hgb 15.6 g/dL (13.0-18.0) 05/01/24 02:31
Hct 43.7 % (39.0-52.0) 05/01/24 02:31
Plt Count 202 10^3/uL (130-400) 05/01/24 02:31
PT 14.7 Sec (11.4-14.6) H 05/01/24 02:31
INR 1.17 05/01/24 02:31
APTT 98.9 Sec (23.4-35.0) H 05/01/24 08:51
Sodium 133 mmol/L (135-145) L 05/01/24 02:31
Potassium 3.4 mmol/L (3.5-5.1) L 05/01/24 02:31
BUN 22 mg/dl (9-20) H 05/01/24 02:31
Creatinine 0.8 mg/dL (0.7-1.3) 05/01/24 02:31
Glucose 342 mg/dl (70-99) H 05/01/24 02:31
Troponins
04/28/24
06:30
Troponin I Cancelled
Vital Signs and I&O:
Vital Signs
Temp Pulse Resp BP Pulse Ox
98.3 F 94 18 150/113 97
05/01/24 07:20 05/01/24 05:12 05/01/24 07:20 05/01/24 05:12 05/01/24 07:20
Vital Signs
Temp Pulse Resp BP Pulse Ox
98.3 F 94 18 150/113 97
05/01/24 07:20 05/01/24 05:12 05/01/24 07:20 05/01/24 05:12 05/01/24 07:20
Intake & Output
04/29/24 04/30/24 05/01/24 05/02/24
07:59 07:59 07:59 07:59
Intake Total 1262 / 1279 1621 / 1621 240 / 240
Output Total 1600 / 1600 1225 / 1225 2600 / 2600
Balance -338 / -321 396 / 396 -2360 / -2360
Physical Exam
Physical Exam
GEN: No distress, awake, alert, oriented x3
HEENT: supple, anicteric, mmm, eomi
LUNGS: CTA B/L, no wheezes/rales
CV: Irreg, S1/S2, no murmur
ABD: soft, BS+, NT/ND
EXT: No cyanosis, clubbing, edema
NEURO: Gross non-focal
SKIN: Warm, pink, dry. No rash
--- NOTE | 2024-05-01 09:50 | PN.DE.MGMTRT ---
Insulin Management
- -
05/01/2024 Diabetes Management Consult
Patient admitted 04/27 with breathing problem, s/p cardiac cath 04/30. PMH includes information from chart, patient states he has no history, [place] with stent 9 years ago, HTN, HLD, diabetes, HCL, SVT, a fib. COPD. On admission cr .8, eGFR > 60, A1C
8.5%.
Patient is awake and alert in bed, able to discuss diabetes plan.
Patient is homeless but recently was living with a friend. He has no interest in monitor instruction today. Will return tomorrow.
Will start lantus 12 units now and daily with moderate corrective insulin. Hopefully after surgery will be able to take metformin and glyburide as most cost effective.
Diabetes History
- -
Type of Diabetes: 2
Pre-Admission Diabetes Regimen
05/01/24
02:31
Creatinine 0.8
Lab Results
Hemoglobin A1c 8.5 % (4.0-5.6) H 04/27/24 04:50
Insulin Pump Settings
IP Diabetes Regimen
04/30/24 04/30/24 04/30/24
11:32 15:34 21:56
Glucose
POC Glucose 206 H 134 H 149 H
05/01/24 05/01/24 05/01/24
02:31 07:22 08:31
Glucose 342 H
POC Glucose 167 H 174 H
Meal type: Breakfast
Meal type: Dinner
Amount consumed: 100%
Amount consumed: 100%
Patient Education
--- NOTE | 2024-05-01 09:59 | W.PN.UPDATE ---
Update Note
Progress Note Update
pt seen and examined
cath and imaging reviewed
pleasant 58 y/o male admitted with afib, rvr and chf
echo with ef 30
+tops
cath with 3 vcad
I agree pt is candidate for cabg
Risks, complications benefits and alternatives reviewed. Risks not limited to , bleeding, infxn, organ damage
Pt appears to understand and wishes to proceed with cabg/maze/rossy
on schedule for Th am pending preop workup
--- NOTE | 2024-05-01 10:15 | PTCARENOTE ---
Patient sent for his PFT's and CV ultrasound in a wheelchair
[2024-05-01] MEDS: LANTUS 0.12 UNITS SC (11:54)
[2024-05-01 12:09] LABS: Glucose - Point of Care 231 mg/dl (70-99)
--- NOTE | 2024-05-01 12:21 | W.PN.PUL3 ---
Today's Communication / Plan
-
Results of cath reviewed, planning for intervention 05/03
Mild restriction noted on PFTs, otherwise adequate
Pulmonary nodule noted measuring 4mm, based on this size would need a surveillance CT in 1 year
This should not preclude patient's need for planned cardiac intervention
Assessment
-
58-year-old male homeless smoker of 2 packs of cigarettes daily with a history of CAD and stent but no other significant past medical history though he is a poor historian and does not seek medical attention often presented with severe shortness of
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
04/27/2024.
Respiratory failure-acute hypoxemic due to CHF
CHF-reduced EF-30%
SVT status post adenosine-now rapid atrial fibrillation
Troponin elevation
Transaminitis
Leukocytosis-WBC 16.7
Elevated D-dimer-1.16
Metabolic acidosis
Hyperglycemia-blood sugar 378
Left lower lobe consolidation/atelectasis-less likely pneumonia or malignancy
Right upper lobe pulmonary nodule-4 mm-incidentally noted CT 04/28/2024
Conditions present prior to admission:
CAD/stent-details unclear.
Probable COPD.
Tobacco addiction-2 packs daily.
Plan
Hemodynamics have improved-atrial fibrillation rate control improved as well as CHF
Wean supplemental oxygen, he is now weaned to RA and comfortable
Nebulizers if needed-currently not bronchospastic and would avoid with significant tachycardia at this time
Aspiration precautions continues
Incentive spirometry encouraged
Atrial fibrillation rate control continues/Heparin drip
Nitroglycerin drip wean off
Cardiology [id number]-piwlleiqfisces reviewed--start ARB, switch to Entresto if possible, add spironolactone, carvedilol and Lasix and cardiac catheterization on Tuesday
Troponin trended
Echocardiogram 04/28/2024-EF 30-35%, diastolic function intermediate, aortic sclerosis, PA systolic 25-30
Continue diuresis as tolerated--IV lasix
Monitor renal function, electrolytes, intake/output, lower extremity edema and weight
Replace electrolytes as needed
Cardiac cath reviewed, surgical planning for 05/03
Influenza negative
Observe off antibiotics
D-dimer positive
Lower extremity ultrasound 04/29/2024-no evidence for DVT bilaterally
CT chest 04/28/2024-no pulmonary embolism, small bilateral pleural effusions, left lower lobe atelectasis-less likely pneumonia or neoplasm, 4 mm solid right upper lobe pulmonary nodule, small patchy opacification posterior left apex
Monitor blood sugar
Insulin supplementation as needed
A1c elevated at 8.5
Smoking cessation counseling ongoing
Preop PFT obtained -- reviewed indicating mild restriction but overall adequate
DVT prophylaxis-on heparin drip
Nutrition
Activity per cardiology
Will need outpatient CT chest follow-up in 1 year for 4 mm solid right upper lobe nodule per guidelines
Outpatient pulmonary eppnll-ts-[id number] cessation counseling, yearly low-dose lung cancer screening CT, PFTs, etc.
Reviewed with patient again
Diagnostic Data:
Chest x-ray 04/27/2024-cardiomegaly with CHF
CT Chest 04/19/24- 1. No CTA evidence for an acute pulmonary thromboembolism.
2. Small bilateral pleural effusions.
3. Dense bandlike opacity in the anterior left lower lobe favored to represent atelectasis. Pneumonia or neoplasm would be considered less likely but continued imaging follow-up can be performed.
4. Posterior right lower lobe compressive atelectasis.
5. 4 mm solid pulmonary nodule in the right upper lobe.
6. Small patchy opacities in the posterior left lung apex, potentially mild residual alveolar edema or mild pneumonitis.
Duplex 04/29/24 - IMPRESSION: No evidence of deep venous thrombosis bilaterally.
EKG 04/27/2024-atrial fibrillation with rapid ventricular response, septal infarct, ST and T wave abnormalities laterally
ECHO 04/27/24- Technically difficult study. Normal left ventricular chamber size. Moderately reduced left ventricular systolic function. Global hypokinesis with regional variability. Left ventricular ejection fraction is 30-35% by visual
assessment. Mild concentric left ventricular hypertrophy with discrete upper septal thickening. Diastolic function indeterminate due to atrial fibrillation. Normal right ventricular size and function. Aortic sclerosis without stenosis. Estimated
pulmonary artery pressure of 25-30 mmHg, assuming a right atrial pressure of 3 mmHg. No prior study for comparison
[facility] 04/30/24- CONCLUSIONS
1. Significant multivessel coronary artery disease.
2. Elevated LVEDP at 28 mmHg.
-----
Total time spent on this consultation __51__ includes review of history, physical exam, medications, laboratory data, personal review of imaging, extensive review of outpatient records, discussion with care team and respiratory therapy.
Subjective Data
-
Date of Service:
Date of Service: May 01, 2024
Chief Complaint: Pulmonary Follow Up
Subjective:
No acute events ON, stable on RA
No new complaints
Results of cath reviewed
Objective Data
Data Reviewed
Vital Signs / I&O / Oxygen:
Vital Signs
Temp Pulse Resp BP Pulse Ox
97.4 F 98 16 139/104 87
05/01/24 11:48 05/01/24 11:53 05/01/24 11:48 05/01/24 11:53 05/01/24 11:48
Intake and Output
04/30/24 05/01/24 05/02/24
06:59 06:59 06:59
Intake Total 1638 / 1638 240 / 240
Output Total 1225 / 1225 2600 / 2600
Balance 413 / 413 -2360 / -2360
SaO2 87
Nasal Cannula flow liters per 2
minute
Physical Exam
General: Comfortable and Other (NAD)
HEENT: Normocephalic, Anicteric and Moist Mucous Membranes
Cardiovascular: S1-S2 and Regular Rhythm
Respiratory: Clear and Non-Labored Respirations
GI: Soft, Non Distended and Non Tender
Neurology: Awake, Alert, Oriented, AO x 3 and No Motor Deficits
Skin: Warm, Dry and Good Color
Labs/Micro/Reports
Lab Data
05/01/24 02:31
05/01/24 02:31
Laboratory Results
05/01/24 05/01/24
02 08:51
PT 14.7 H
INR 1.17
APTT 81.4 H 98.9 H
[2024-05-01] MEDS: NOVOLOG FLEXPEN-MODERATE RESISTANCE 3 UNITS SC (13:23)
--- NOTE | 2024-05-01 14:12 | W.PN.UPDATE ---
Update Note
Progress Note Update
Simulated Patient Summary
Procedure Type:�Isolated CABG
PERIOPERATIVE OUTCOME ESTIMATE %
Operative Mortality 3%
Morbidity & Mortality 16.2%
Stroke 2.28%
Renal Failure 1.61%
Reoperation 3.39%
Prolonged Ventilation 11.6%
Deep Sternal Wound Infection 0.385%
Long Hospital Stay (>14 days) 12.4%
Short Hospital Stay (<6 days)* 24.6%
*higher values reflect a better outcome
Clinical Summary
Planned Surgery: Isolated CABG, Urgent, First cardiovascular surgery
Demographics: 58 year old, White, male, 80kg, 169cm, BMI: 28 kg/m�
Insurance/Payor: None / self/ Medicaid
Lab Values: Creatinine: 0.8 mg/dL, Hematocrit: 43.7%, WBC Count: 10.2 10�/�L, Platelet Count: 846155 cells/�L
Substance Abuse: Current smoker, Alcohol use: <=1 drink/week
Risk Factors / Comorbidities: Diabetes Mellitus , Hypertension, Family Hx of CAD
Pulmonary RF: Moderate CLD
Cardiac Status: Acute heart failure, Ejection Fraction = 30%
Coronary Artery Disease: 3 vessels diseased, Proximal LAD Stenosis >=70%, Non-ST Elevation MD, MD: 1 to 7 Days
Valve Disease: Trivial/Trace AR, Mild MR, Trivial/Trace TR
Arrhythmia: Recent A-fib, Paroxysmal
Prev. Cardiac Interv: Previous PCI: Not at this facility
--- NOTE | 2024-05-01 15:20 | CM ---
Reviewed chart. Met with Mr. Perry to review discharge plans. He states prior to admission he resides with a friend in a one story home with five steps to enter. He states prior to admission he was independent with ambulation and adls. He
states he does not have any DME in the home. He currently does not have any health insurance. He is working with [facility]. His friend will be around to assist in his care if needed. Medical work-up in progress. The discharge plan is to return home
with his friend and a home visit by the Cardiothoracic Transitional Care Nurse when medically stable.
We reviewed pre-op and post-op routines. We reviewed the soap instructions. We also reviewed restrictions including sternal precautions and driving restrictions. Gave him the Cardiothoracic Surgery Educational Booklet. We discussed a home visit
by the Cardiothoracic Transitional Care Nurse. He is agreeable to a home visit. The plan is for CABG on April.
--- NOTE | 2024-05-01 16:43 | W.PN.HOSP.TC ---
Today's Communication/Plan
-
CABG for
Continue Heparin Drip, Amiodarone
Undergoing pre-CABG testing
Assessment / Plan
Assessment / Plan
Physical Exam
Physical Exam was not performed as patient was not present in his room at the time of attempted patient encounter.
Assessment/Plan
HPI: 58-year-old homeless male without known past medical history, presented with shortness of breath. Patient is currently residing at a friend's house. Patient has been taking albuterol that he garnered from a friend.
He was found to be tachycardic and tachypneic by EMS. His heart rate was in the 180s so was given 6 mg adenosine. After the adenosine, there EKG showed rapid A-fib so medics gave verapamil.
They also administered 2 sublingual nitro which seemed to help. They put him on CPAP which helped with his breathing. He was able to speak in short sentences.
In the ED, he remained in respiratory distress, only able to speak in one-word sentences initially, was diaphoretic. He was placed on BiPAP which helped with his respiratory distress.
# Acute hypoxic respiratory failure, likely due to pulmonary edema from new diagnosed acute systolic heart failure
BiPAP -> 4L NC -> off O2 on RA
Chest x-ray noted Cardiomegaly with increased pulmonary vascularity.
s/p Nitro drip from the ED
Cont IV lasix 40 mg daily
echo noted reduced EF at 30-35%. Diastolic function indeterminate due to atrial fibrillation. Estimated PASP 25-30 mmHg
Holding valsartan, spironolactone in prep for CABG
Cardiac catheterization showed: 'Significant multivessel coronary artery disease' and 'Elevated LVEDP at 28 mmHg'
CABG evaluation per cardiothoracic team
# Presumed new onset A-fib RVR
s/p Cardizem drip
Amiodarone now switched to PO
Continue Lopressor 50 mg Q6H
IV Lopressor PRN for rate control
Continue Heparin Drip
# Troponin elevation may be due to NSTEMI vs non-ischemic
EKG noted A fib RVR
Troponin peaked at 0.278
# Elevated LFT, presumed congestion versus reactive, improving
Continue to trend LFT
# Leukocytosis, possibly reactive, improving
pt is non-toxic appearing
CRP at 14
Procalcitonin 0.14
Monitor temperature curve
Observe without antibiotic for now
# Elevated d dimer likely reactive (acute phase protein)
CT PE negative for PE
Checked LE US for completeness sake: no DVT
Cont current heparin drip
# 4 mm solid pulmonary nodule in the right upper lobe.
-Follow-up with pulmonary outpatient
-would need a surveillance CT in 1 year
#Diabetes Mellitus
-Continue Lantus Insulin
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
DVT prophylaxis: heparin drip
Full code
Anticipated Discharge: > 48 hours
Subjective/Interval History
-
Date of Service: May 01, 2024
Patient was not present in his room at the time of attempted patient encounter. Case discussed with patient's nurse, no new significant events, patient was getting pre-CABG testing as per nurse.
Objective Data
-
Labs:
Laboratory Results
05/01/24
08:51
APTT 98.9 H
Vital Signs:
Vital Signs
Temp Pulse Resp BP Pulse Ox
98.1 F 58 16 139/104 97
05/01/24 15:42 05/01/24 15:42 05/01/24 15:42 05/01/24 11:53 05/01/24 15:42
I&O
04/30/24 05/01/24 05/02/24
06:59 06:59 06:59
Intake Total 1638 / 1638 240 / 240
Output Total 1225 / 1225 2600 / 2600
Balance 413 / 413 -2360 / -2360
[2024-05-01] MEDS: PACERONE 400 MG PO ×2 (17:29→22:25)
[2024-05-01 17:50] LABS: Glucose - Point of Care 126 mg/dl (70-99)
[2024-05-01] MEDS: NOVOLOG FLEXPEN-MODERATE RESISTANCE SC (17:56)
--- NOTE | 2024-05-01 20:43 | PTCARENOTE ---
received patient at the change of shift. AAOx3. resting in bed. denies any cp/sob/palps. Afib on tele 80s-90s. heparin gtt infusing at 17 ml/hr, per protocol. answered all questions regarding OR prep. patient eager to shower. educated patient to
inform RN with any changes. call sifuentes within reach. makes needs known.
[2024-05-01 20:57] LABS: Blood Urea Nitrogen 23 mg/dl (9-20); Calcium 9.6 mg/dl (8.4-10.2); Carbon Dioxide 25 mmol/L (22-30); Chloride 102 mmol/L (98-107); Estimated Creatinine Clearance 80 ml/min; Glucose 235 mg/dl (70-99); Magnesium 1.9 mg/dl (1.6-2.3); Potassium 3.8 mmol/L (3.5-5.1); Sodium 139 mmol/L (135-145); eGFR > 60.00
[2024-05-01 22:28] LABS: Glucose - Point of Care 133 mg/dl (70-99)
[2024-05-02] VITALS (11 sets, daily range): BP systolic 125–179; BP diastolic 92–135; BMI 28.0
--- NOTE | 2024-05-02 02:15 | PTCARENOTE ---
at 0215, patient had a 3.52 second pause on tele. Afib 80s-90s. patient sleeping. asymptomatic.
[2024-05-02] MEDS: HEPARIN 25000 UNITS/250 ML IV ×2 (05:15→21:24)
[2024-05-02] MEDS: LOPRESSOR 50 MG PO ×4 (05:15→23:21)
[2024-05-02 05:19] LABS: APTT 118.5 Sec (23.4-35.0)
[2024-05-02 05:50] LABS: ALT (SGPT) 78 U/L (0-50); AST (SGOT) 51 U/L (17-59); Albumin 4.2 g/dl (3.5-5.0); Alkaline Phosphatase 88 U/L (38-126); Blood Urea Nitrogen 22 mg/dl (9-20); Calcium 9.6 mg/dl (8.4-10.2); Carbon Dioxide 24 mmol/L (22-30); Chloride 105 mmol/L (98-107); Estimated Creatinine Clearance 80 ml/min; Glucose 164 mg/dl (70-99); Sodium 141 mmol/L (135-145); Total Protein 6.6 g/dl (6.3-8.2); eGFR > 60.00
[2024-05-02 08:11] LABS: Glucose - Point of Care 180 mg/dl (70-99)
--- NOTE | 2024-05-02 09:14 | PN.DE.MGMTRT ---
Insulin Management
- -
05/02/2024 Diabetes Management Consult Follow up
Patient admitted 04/27 with breathing problem, s/p cardiac cath 04/30. PMH includes information from chart, patient states he has no history, VT with stent 9 years ago, HTN, HLD, diabetes, HCL, SVT, a fib. COPD. On admission cr .8, eGFR > 60, A1C
8.5%.
Patient is awake and alert ambulating in room, able to discuss diabetes plan.
Patient is homeless but recently was living with a friend. He has no interest in monitor instruction again today. He states he 'does not do needles'. Concerned he may not test glucose after discharge.
05/01 lantus 12 units daily with moderate corrective insulin started, glucose range 133 to 226. For CABG , 05/03.
Hopefully after surgery will be able to take metformin and glyburide as most cost effective.
Diabetes History
- -
Type of Diabetes: 2
Pre-Admission Diabetes Regimen
05/01/24 05/02/24
20:07 04:55
Creatinine 0.9 0.9
Lab Results
Hemoglobin A1c 8.5 % (4.0-5.6) H 04/27/24 04:50
Insulin Pump Settings
IP Diabetes Regimen
05/01/24 05/01/24 05/01/24
12:08 17:49 20:07
Glucose 235 H
POC Glucose 231 H 126 H
05/01/24 05/02/24 05/02/24
22:26 04:55 08:10
Glucose 164 H
POC Glucose 133 H 180 H
Meal type: Dinner
Amount consumed: 100%
Patient Education
[2024-05-02] MEDS: NOVOLOG FLEXPEN-MODERATE RESISTANCE 1 UNITS SC ×2 (09:15→12:50)
[2024-05-02] MEDS: LANTUS 0.12 UNITS SC (09:16)
[2024-05-02] MEDS: NICODERM TRANSDERMAL 21 MG TRANSDERM (09:18)
[2024-05-02] MEDS: LOW STRENGTH ASPIRIN 81 MG PO (09:18)
[2024-05-02] MEDS: PACERONE 400 MG PO ×2 (09:18→20:07)
--- NOTE | 2024-05-02 09:26 | W.PN.UPDATE ---
Update Note
Progress Note Update
Patient was seen this am with Dr. buckner. Consent obtained. Surgery tomorrow with Dr. buckner (9am start).
--- NOTE | 2024-05-02 10:18 | CM ---
Reviewed chart. Met with Mr. Perry to review discharge plans. He states he is scheduled for surgery tomorrow at 9:00 a.m. Prior to admission he resides with a friend in a one story home with five steps to enter. Prior to admission he was
independent with ambulation and adls. He does not have any DME in the home. His friend will be around to assist un his care if needed when he goes home. Telephone call to [facility] Intake to see if they accept referral. [facility] goes to
[facility] and can accept M.A. pending. Will send referral after his surgery. Medical work-up in progress. The discharge plan is to return home with his friend and [facility] Services when medically stable.
--- NOTE | 2024-05-02 10:32 | W.PN.CARDCBS ---
Addendum entered and electronically signed by Gamaliel Lindsey MD 05/02/24 12:06:
I saw and examined the patient.
The OYSTER SHIPPER or PA's note was reviewed and I agree with the note.
Comment: General: Well developed, well nourished in NAD.
For CABG on 05/03. Will decrease amiodarone to 400 mg p.o. twice daily. Add Norvasc for hypertension. Continue IV heparin as well as Lopressor. No further chest pain.
Original Note:
Today's Communication / Plan
-
decrease amiodarone. continue lopressor, IV heparin
add norvasc for HTN
for CABG in AM
Impression / Plan
-
Primary Shell [employer] Bonder: remotely seen by [facility] Mold Bonder, details unknown
Assessment:
Acute hypoxic respiratory failure
Acute HFrEF
Atrial fibrillation with RVR, new diagnosis of unclear duration
Elevated troponin
Hyperglycemia, concern for diabetes, hgbA1c pending
Elevated LFTs
Leukocytosis
Elevated ddimer
CAD with IA status post LAD PCI approximately [address] [facility]
Presumed history of paroxysmal atrial fibrillation
Hypertension
Hyperlipidemia
Ongoing tobacco use
ECHO 04/27/24: TDS, global hypokinesis with regional variability, EF 30 to 35%, mild concentric LVH with discrete upper septal thickening, aortic sclerosis, PAP 25 to 30 mmHg
Plan:
-Weight continues to trend down if accurate. Remains on IV Lasix. Creatinine stable at 0.9
-Remains in rate controlled A-fib. Of note had 3.5-second pause while sleeping overnight on review of telemetry, asymptomatic. Will decrease amiodarone dose to 400 mg twice daily and continue lopressor 50mg Q6H
-continue IV heparin. eventual OAC and yazidism of SR
-BPs elevated. holding valsartan, spironolactone in prep for CABG. will add norvasc 5mg daily
-EF 30-35% by echo. eventual GDMT as able. will need OP post op echo to reassess EF
-d/w CT surgery, for CABG 05/03
-unlikely able to afford SGLT2 inhibitor
-tobacco cessation
Progress Note - Shell [employer] Bonder
Subjective
Date of Service: May 02, 2024
no issues overnight
Objective
Labs:
05/01/24 02:31
05/02/24 04:55
Labs
Hgb 15.6 g/dL (13.0-18.0) 05/01/24 02:31
Hct 43.7 % (39.0-52.0) 05/01/24 02:31
Plt Count 202 10^3/uL (130-400) 05/01/24 02:31
PT 14.7 Sec (11.4-14.6) H 05/01/24 02:31
INR 1.17 05/01/24 02:31
APTT 118.5 Sec (23.4-35.0) H 05/02/24 04:55
Sodium 141 mmol/L (135-145) 05/02/24 04:55
Potassium 4.0 mmol/L (3.5-5.1) 05/02/24 04:55
BUN 22 mg/dl (9-20) H 05/02/24 04:55
Creatinine 0.9 mg/dL (0.7-1.3) 05/02/24 04:55
Glucose 164 mg/dl (70-99) H 05/02/24 04:55
Vital Signs and I&O:
Vital Signs
Temp Pulse Resp BP Pulse Ox
97.7 F 90 18 157/120 99
05/02/24 07:35 05/02/24 08:00 05/02/24 07:35 05/02/24 07:42 05/02/24 09:29
Vital Signs
Temp Pulse Resp BP Pulse Ox
97.7 F 90 18 157/120 99
05/02/24 07:35 05/02/24 08:00 05/02/24 07:35 05/02/24 07:42 05/02/24 09:29
Intake & Output
04/30/24 05/01/24 05/02/24 05/03/24
07:59 07:59 07:59 07:59
Intake Total 1621 / 1621 240 / 240 1117 / 1117
Output Total 1225 / 1225 2600 / 2600 300 / 300
Balance 396 / 396 -2360 / -2360 817 / 817
Physical Exam
Physical Exam
GEN: No distress, awake, alert, oriented x3
HEENT: supple, anicteric, mmm, eomi
LUNGS: CTA B/L, no wheezes/rales
CV: Irreg, S1/S2, no murmur
ABD: soft, BS+, NT/ND
EXT: No cyanosis, clubbing, edema
NEURO: Gross non-focal
SKIN: Warm, pink, dry. No rash
--- NOTE | 2024-05-02 10:42 | W.PN.HOSP.TC ---
Today's Communication/Plan
-
CABG tomorrow
Transfer to cardiothoracic surgery service tomorrow morning
Continue Heparin Drip
Appreciate cardiology and cardiothoracic surgery service
Assessment / Plan
Assessment / Plan
Physical Exam
General: Well Developed, Well Nourished, Comfortable and Conversant
HEENT: Normocephalic, Atraumatic
Respiratory: CTAB
Cardiac: S1/S2, Irregular Rhythm
GI: Soft, Nontender, Nondistended and Normal Bowel Sounds
Skin: Warm and Dry
Neuro: Awake and Alert
Psych: Calm and Intact Judgement/Insight
Assessment/Plan
HPI: 58-year-old homeless male without known past medical history, presented with shortness of breath. Patient is currently residing at a friend's house. Patient has been taking albuterol that he garnered from a friend.
He was found to be tachycardic and tachypneic by EMS. His heart rate was in the 180s so was given 6 mg adenosine. After the adenosine, there EKG showed rapid A-fib so medics gave verapamil.
They also administered 2 sublingual nitro which seemed to help. They put him on CPAP which helped with his breathing. He was able to speak in short sentences.
In the ED, he remained in respiratory distress, only able to speak in one-word sentences initially, was diaphoretic. He was placed on BiPAP which helped with his respiratory distress.
# Acute hypoxic respiratory failure, likely due to pulmonary edema from new diagnosed acute systolic heart failure
BiPAP -> 4L NC -> off O2 on RA
Chest x-ray noted Cardiomegaly with increased pulmonary vascularity.
s/p Nitro drip from the ED
Lasix as per cardiology
echo noted reduced EF at 30-35%. Diastolic function indeterminate due to atrial fibrillation. Estimated PASP 25-30 mmHg
Holding valsartan, spironolactone in prep for CABG
Cardiac catheterization showed: 'Significant multivessel coronary artery disease' and 'Elevated LVEDP at 28 mmHg'
CABG evaluation per cardiothoracic team: CABG planned for 05/02/24
# Presumed new onset A-fib RVR
s/p Cardizem drip
Amiodarone now switched to PO
Continue Lopressor 50 mg Q6H
IV Lopressor PRN for rate control
Continue Heparin Drip
# Troponin elevation may be due to NSTEMI vs non-ischemic
EKG noted A fib RVR
Troponin peaked at 0.278
# Elevated LFT, presumed congestion versus reactive, improving
Continue to trend LFT
# Leukocytosis, possibly reactive, improving
pt is non-toxic appearing
CRP at 14
Procalcitonin 0.14
Monitor temperature curve
Observe without antibiotic for now
# Elevated d dimer likely reactive (acute phase protein)
CT PE negative for PE
Checked LE US for completeness sake: no DVT
Cont current heparin drip
# 4 mm solid pulmonary nodule in the right upper lobe.
-Follow-up with pulmonary outpatient
-would need a surveillance CT in 1 year
#Diabetes Mellitus
-Continue Lantus Insulin
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
DVT prophylaxis: heparin drip
Full code
Anticipated Discharge: > 48 hours
Subjective/Interval History
-
Date of Service: May 02, 2024
Patient was seen and examined. He denied any chest pain or any other complaints.
Objective Data
-
Labs:
Laboratory Results
05/02/24 05/02/24
04:55 11:45
APTT 118.5 H Pending
Sodium 141
Potassium 4.0
Chloride 105
Carbon Dioxide 24
BUN 22 H
Creatinine 0.9
Glucose 164 H
Calcium 9.6
Total Bilirubin 1.0
AST 51
ALT 78 H
Alkaline Phosphatase 88
Vital Signs:
Vital Signs
Temp Pulse Resp BP Pulse Ox
97.7 F 90 18 157/120 99
05/02/24 07:35 05/02/24 08:00 05/02/24 07:35 05/02/24 07:42 05/02/24 09:29
I&O
05/01/24 05/02/24 05/03/24
06:59 06:59 06:59
Intake Total 240 / 240 1117 / 1117
Output Total 2600 / 2600 300 / 300
Balance -2360 / -2360 817 / 817
--- NOTE | 2024-05-02 11:46 | W.PN.PUL3 ---
Today's Communication / Plan
-
Doing well today, reviewed plan of care
Scheduled for CABG tomorrow per CTS
We will follow in CVICU postop
Assessment
-
58-year-old male homeless smoker of 2 packs of cigarettes daily with a history of CAD and stent but no other significant past medical history though he is a poor historian and does not seek medical attention often presented with severe shortness of
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
04/27/2024.
Respiratory failure-acute hypoxemic due to CHF
CHF-reduced EF-30%
SVT status post adenosine-now rapid atrial fibrillation
Troponin elevation
Transaminitis
Leukocytosis-WBC 16.7
Elevated D-dimer-1.16
Metabolic acidosis
Hyperglycemia-blood sugar 378
Left lower lobe consolidation/atelectasis-less likely pneumonia or malignancy
Right upper lobe pulmonary nodule-4 mm-incidentally noted CT 04/28/2024
Conditions present prior to admission:
CAD/stent-details unclear.
Probable COPD.
Tobacco addiction-2 packs daily.
Plan
Hemodynamics have improved-atrial fibrillation rate control improved as well as CHF
Wean supplemental oxygen, he is now weaned to RA and comfortable
Nebulizers if needed-currently not bronchospastic and would avoid with significant tachycardia at this time
Aspiration precautions continues
Incentive spirometry encouraged
Atrial fibrillation rate control continues/Heparin drip
Nitroglycerin drip wean off
Cardiology issnbyqvpn-odmzj-whliiqigxsuugh reviewed--start ARB, switch to Entresto if possible, add spironolactone, carvedilol and Lasix and cardiac catheterization on Tuesday
Troponin trended
Echocardiogram 04/28/2024-EF 30-35%, diastolic function intermediate, aortic sclerosis, PA systolic 25-30
Continue diuresis as tolerated--IV lasix
Monitor renal function, electrolytes, intake/output, lower extremity edema and weight
Replace electrolytes as needed
Cardiac cath reviewed, surgical planning for 05/03
Influenza negative
Observe off antibiotics
D-dimer positive
Lower extremity ultrasound 04/29/2024-no evidence for DVT bilaterally
CT chest 04/28/2024-no pulmonary embolism, small bilateral pleural effusions, left lower lobe atelectasis-less likely pneumonia or neoplasm, 4 mm solid right upper lobe pulmonary nodule, small patchy opacification posterior left apex
Monitor blood sugar
Insulin supplementation as needed
A1c elevated at 8.5
Smoking cessation counseling ongoing
Preop PFT obtained -- reviewed indicating mild restriction but overall adequate
DVT prophylaxis-on heparin drip
Nutrition
Activity per cardiology
Will need outpatient CT chest follow-up in 1 year for 4 mm solid right upper lobe nodule per guidelines
Outpatient pulmonary ofhdwx-wi-hpdbygr cessation counseling, yearly low-dose lung cancer screening CT, PFTs, etc.
Reviewed with patient again
Diagnostic Data:
Chest x-ray 04/27/2024-cardiomegaly with CHF
CT Chest 04/19/24- 1. No CTA evidence for an acute pulmonary thromboembolism.
2. Small bilateral pleural effusions.
3. Dense bandlike opacity in the anterior left lower lobe favored to represent atelectasis. Pneumonia or neoplasm would be considered less likely but continued imaging follow-up can be performed.
4. Posterior right lower lobe compressive atelectasis.
5. 4 mm solid pulmonary nodule in the right upper lobe.
6. Small patchy opacities in the posterior left lung apex, potentially mild residual alveolar edema or mild pneumonitis.
Duplex 04/29/24 - IMPRESSION: No evidence of deep venous thrombosis bilaterally.
EKG 04/27/2024-atrial fibrillation with rapid ventricular response, septal infarct, ST and T wave abnormalities laterally
ECHO 04/27/24- Technically difficult study. Normal left ventricular chamber size. Moderately reduced left ventricular systolic function. Global hypokinesis with regional variability. Left ventricular ejection fraction is 30-35% by visual
assessment. Mild concentric left ventricular hypertrophy with discrete upper septal thickening. Diastolic function indeterminate due to atrial fibrillation. Normal right ventricular size and function. Aortic sclerosis without stenosis. Estimated
pulmonary artery pressure of 25-30 mmHg, assuming a right atrial pressure of 3 mmHg. No prior study for comparison
[facility] 04/30/24- CONCLUSIONS
1. Significant multivessel coronary artery disease.
2. Elevated LVEDP at 28 mmHg.
-----
Total time spent on this consultation __35__ includes review of history, physical exam, medications, laboratory data, personal review of imaging, extensive review of outpatient records, discussion with care team and respiratory therapy.
Subjective Data
-
Date of Service:
Date of Service: May 02, 2024
Chief Complaint: Pulmonary Follow Up
Subjective:
No acute events ON, remains stable on RA
No new complaints
Objective Data
Data Reviewed
Vital Signs / I&O / Oxygen:
Vital Signs
Temp Pulse Resp BP Pulse Ox
97.7 F 90 18 157/120 99
05/02/24 07:35 05/02/24 08:00 05/02/24 07:35 05/02/24 07:42 05/02/24 09:29
Intake and Output
05/01/24 05/02/24 05/03/24
06:59 06:59 06:59
Intake Total 240 / 240 1117 / 1117
Output Total 2600 / 2600 300 / 300
Balance -2360 / -2360 817 / 817
SaO2 99
Nasal Cannula flow liters per 2
minute
Physical Exam
General: Comfortable and Other (NAD)
HEENT: Normocephalic, Anicteric and Moist Mucous Membranes
Cardiovascular: S1-S2 and Regular Rhythm
Respiratory: Clear and Non-Labored Respirations
GI: Soft, Non Distended and Non Tender
Neurology: Awake, Alert, Oriented, AO x 3 and No Motor Deficits
Skin: Warm, Dry and Good Color
Labs/Micro/Reports
Lab Data
05/01/24 02:31
05/02/24 04:55
Laboratory Results
05/02/24
04:55
APTT 118.5 H
[2024-05-02] MEDS: NORVASC 5 MG PO (12:29)
[2024-05-02 12:36] LABS: Glucose - Point of Care 165 mg/dl (70-99)
[2024-05-02 17:19] LABS: Glucose - Point of Care 113 mg/dl (70-99)
[2024-05-02] MEDS: NOVOLOG FLEXPEN-MODERATE RESISTANCE SC (17:45)
[2024-05-02 18:47] LABS: APTT 114.1 Sec (23.4-35.0)
--- NOTE | 2024-05-02 19:07 | PTCARENOTE ---
Pt resting in his room, he denies any discomfort. Blood pressures remain high at times with automatic and manual measurement. Telemetry shows atrial fib . Plan for CVOR prep tonight.
--- NOTE | 2024-05-02 20:26 | PTCARENOTE ---
Patient received at change of shift. Awake, alert, and oriented in bed. Heparin drip running @ 1600 units/hr in right hand. Right radial site intact and open to air; a little ecchymotic. BP 151/95, A-Fib 80s-90s, 97% on room air. Discussed plan for
surgical prep tonight. Patient verbalized understanding. Call sifuentes within reach.
--- NOTE | 2024-05-02 23:50 | PTCARENOTE ---
Prep for surgery completed. Patient tolerated shower. Reviewed plan of care. NPO at midnight.
[2024-05-03] VITALS (11 sets, daily range): BP systolic 89–167; BP diastolic 59–134; BMI 28.3
[2024-05-03 02:23] LABS: ALT (SGPT) 74 U/L (0-50); AST (SGOT) 38 U/L (17-59); Albumin 3.8 g/dl (3.5-5.0); Alkaline Phosphatase 80 U/L (38-126); Blood Urea Nitrogen 21 mg/dl (9-20); Calcium 9.2 mg/dl (8.4-10.2); Carbon Dioxide 23 mmol/L (22-30); Chloride 105 mmol/L (98-107); Estimated Creatinine Clearance 80 ml/min; Glucose 156 mg/dl (70-99); Potassium 3.8 mmol/L (3.5-5.1); Sodium 142 mmol/L (135-145); Total Bilirubin 0.8 mg/dl (0.2-1.3); Total Protein 6.1 g/dl (6.3-8.2); eGFR > 60.00
[2024-05-03] MEDS: FLUSH (NSS) 1 FLUSH IV (06:15)
[2024-05-03] MEDS: PROTONIX 40 MG PO (06:21)
[2024-05-03] MEDS: BACTROBAN 2% OINTMENT 1 APPLIC NASAL ×2 (06:21→20:09)
[2024-05-03] MEDS: MAGNESIUM OXIDE 500 MG PO (06:21)
[2024-05-03 06:22] LABS: Glucose - Point of Care 142 mg/dl (70-99)
[2024-05-03] MEDS: LOPRESSOR 25 MG PO (06:22)
--- NOTE | 2024-05-03 08:13 | PN.DE.MGMTRT ---
Insulin Management
- -
05/03/2024 Diabetes Management Consult Follow up
Patient admitted 04/27 with breathing problem, s/p cardiac cath 04/30. PMH includes information from chart, patient states he has no history, CT with stent 9 years ago, HTN, HLD, diabetes, HCL, SVT, a fib. COPD. On admission cr .8, eGFR > 60, A1C
8.5%.
Patient is for OR today for CABG.
Patient is homeless but recently was living with a friend. He has no interest in monitor instruction again today. He states he 'does not do needles'. Concerned he may not test glucose after discharge.
05/02 lantus 12 units daily with moderate corrective insulin started, glucose range 113 to 180.
Will follow.
Diabetes History
- -
Type of Diabetes: 2
Pre-Admission Diabetes Regimen
05/03/24
01:42
Creatinine 0.9
Lab Results
Hemoglobin A1c 8.5 % (4.0-5.6) H 04/27/24 04:50
Insulin Pump Settings
IP Diabetes Regimen
05/02/24 05/02/24 05/03/24
12:34 17:18 01:42
Glucose 156 H
POC Glucose 165 H 113 H
05/03/24
06:20
Glucose
POC Glucose 142 H
Meal type: Breakfast
Amount consumed: 100%
Patient Education
--- NOTE | 2024-05-03 09:05 | PTCARENOTE ---
Pt taken to CVOR @08:45.
--- NOTE | 2024-05-03 09:14 | W.PN.INTV ---
Today's Communication / Plan
Recommendations
Continue with mechanical ventilation and extubate when appropriate
Keep sedation off with prn use of fentanyl, limiting sedation if trying to extubate
Goal SpO2 >90-94%
Goal Hb >8g/dL
Pain control
Maintain peak inspiratory pressure <30�35
Continue with insulin drip per protocol
Vasopressors with goal MAP >65
Trend PAP + CO/CI with goal CI >2
Assessment
-
58-year-old male homeless smoker of 2 packs of cigarettes daily with a history of CAD and stent but no other significant past medical history though he is a poor historian and does not seek medical attention often presented with severe shortness of
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
04/27/2024.
Impression:
Multivessel CAD s/p CABG x 4 (POD #0)
A-fib s/p and MAZE with radiofrequency ablation + left atrial appendage ligation with 40 mm Atricure clip (POD#0)
Respiratory failure-acute hypoxemic due to CHF
Acute HFrEF with acute decompensated heart failure (LVEF 35-40% via intraoperative LAURYN from 05/03/2024)
Rapid atrial fibrillation
Troponin elevation (peaked at 0.278 on 04/27/2024)
Transaminitis
Leukocytosis-resolved
Elevated D-dimer-1.16
Metabolic acidosis � resolved
Hyperglycemia-resolved
Left lower lobe consolidation/atelectasis-less likely pneumonia or malignancy
Right upper lobe pulmonary nodule-4 mm-incidentally noted CT 04/28/2024
Conditions present prior to admission:
CAD/stent-details unclear.
Probable COPD.
Tobacco addiction-2 packs daily.
Plan
Ventilator settings reviewed
FiO2 will be weaned to maintain SpO2 >90-94%
Minute ventilation will be adjusted
Arterial blood gases will be monitored
Spontaneous breathing trial will be attempted with hopeful extubation after anesthesia/sedation wear off
prn nebulized bronchodilators
Smoking cessation counseling ongoing
Preop PFT obtained -- reviewed indicating mild restriction but overall adequate with no evidence of obstructive lung disease and normal gas exchange capacity.
Pulmonary artery catheter parameters will be followed
Pressors/antihypertensive/inotropes/diuretics will be provided as needed
Maintain MAP>65
Heart rate control with goal HR<110
Replete electrolytes with K>4, Mg>2
Monitor chest tube output (mediastinal x 1/left pleural chest tube)
Monitor hemoglobin
Monitor platelet count and coags
Transfuse blood products as needed to maintain Hb>7g/dL, plt>50k (given post-operative status)
CT surgery managing chest tubes
Cardiology on board and recommendations appreciated
Continue with GDMT as tolerated
Monitor blood sugar to maintain euglycemia with goal BG 140-180
Insulin drip per protocol
A1c elevated at 8.5
D-dimer positive
Lower extremity ultrasound 04/29/2024-no evidence for DVT bilaterally
CT chest 04/28/2024-no pulmonary embolism, small bilateral pleural effusions, left lower lobe atelectasis-less likely pneumonia or neoplasm, 4 mm solid right upper lobe pulmonary nodule, small patchy opacification posterior left apex --> she will
need repeat CT chest in 4-6 weeks to follow up improvement of pleural effusions and LLL-bandlike atelectasis, and with continued outpatient follow up for her RUL 4mm nodule
Influenza negative
Observe off antibiotics
Trend WBC and monitor for fevers
Aspiration precautions
VAP prevention protocol
DVT prophylaxis
Early nutrition
Early mobilization
Outpatient pulmonary ahgcdp-ht-flsnjpb cessation counseling, yearly low-dose lung cancer screening CT, PFTs, etc.
Dr. Cleveland had reviewed with this with patient.
[employer] Pur[employer] Chemist services will continue to follow along while he remains in the CVICU.
Critical care statement: A total of 46 minutes of critical care time was provided for this patient today. This includes management of ventilator, spontaneous breathing trial, arterial blood gases, pressors, of unstable vital signs, evaluation of the
patient at bedside, reviewing the patient's pertinent medical records including radiographs, microbiology, laboratory evaluations, and discussion with primary team and critical care nursing.
Diagnostic Data:
CXR 05/03/2024: New postoperative changes; No pneumothorax; Cardiomegaly with borderline pulmonary edema
Chest x-ray 04/27/2024-cardiomegaly with CHF
CT Chest 04/19/24- 1. No CTA evidence for an acute pulmonary thromboembolism.
2. Small bilateral pleural effusions.
3. Dense bandlike opacity in the anterior left lower lobe favored to represent atelectasis. Pneumonia or neoplasm would be considered less likely but continued imaging follow-up can be performed.
4. Posterior right lower lobe compressive atelectasis.
5. 4 mm solid pulmonary nodule in the right upper lobe.
6. Small patchy opacities in the posterior left lung apex, potentially mild residual alveolar edema or mild pneumonitis.
Duplex 04/29/24 - IMPRESSION: No evidence of deep venous thrombosis bilaterally.
EKG 04/27/2024-atrial fibrillation with rapid ventricular response, septal infarct, ST and T wave abnormalities laterally
ECHO 04/27/24- Technically difficult study. Normal left ventricular chamber size. Moderately reduced left ventricular systolic function. Global hypokinesis with regional variability. Left ventricular ejection fraction is 30-35% by visual
assessment. Mild concentric left ventricular hypertrophy with discrete upper septal thickening. Diastolic function indeterminate due to atrial fibrillation. Normal right ventricular size and function. Aortic sclerosis without stenosis. Estimated
pulmonary artery pressure of 25-30 mmHg, assuming a right atrial pressure of 3 mmHg. No prior study for comparison
[facility] 04/30/24- CONCLUSIONS
1. Significant multivessel coronary artery disease.
2. Elevated LVEDP at 28 mmHg.
Subjective Dataa
Subjective Data
Date of Service:
Date of Service: May 03, 2024
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
Subjective:
Patient was seen and evaluated today at bedside. Currently intubated on SIMV at 14/600/60%/8 with a PS of 5. PIP is 34 cmH2O with VTe 612 mL and breathing at 14 breaths/min. Heart rate 60, SpO2 97%, BP via A-line: 106/58, PAP: 28/15 with CVP of
10, and CO/CI: 3.7/2.04, respectively. He has a mediastinal chest tube x 1/left pleural chest tube. He is lethargic but easily arousable and nodding his head yes or no appropriately/following commands. He is currently on insulin drip at 1.7
units/hr and Levophed at 1mcg/min.
Review of Systems
General: Other (Unable to obtain given patient is intubated)
Objective Data
Data Reviewed
Vital Signs / I&O / Oxygen:
Vital Signs
Temp Pulse Resp BP Pulse Ox
98.3 F 88 16 167/119 95
05/03/24 08:08 05/03/24 06:22 05/03/24 08:08 05/03/24 06:22 05/03/24 08:08
Intake and Output
05/02/24 05/03/24 05/04/24
06:59 06:59 06:59
Intake Total 1117 / 1117 490 / 490
Output Total 300 / 300 300 / 300
Balance 817 / 817 190 / 190
SaO2 95
Nasal Cannula flow liters per 2
minute
Physical Exam
General: Respiratory Distress (n), Chills (negative) and Sweats (negative)
HEENT: Normocephalic, Anicteric and Other (ETT in place)
Cardiovascular: Rub and Other (normal rate)
Respiratory: Wheeze (n), Crackles (negative), Rhonchi (n), Non-Labored Respirations, Accessory Resp Muscle Use (n), Stridor (n), ET Tube (Mechanical breath sounds heard bilaterally) and Chest Tube (mediastinal x 1/left pleural chest tube)
GI: Soft, Non Distended, Non Tender and Normal Bowel Sounds
Neurology: Tremors (negative) and Other (Lethargic but easily arousable and following all commands)
Skin: Warm, Dry, Cyanosis (n), Jaundice (n) and Rash (n)
Labs/Micro/Reports
Lab Data
05/01/24 02:31
05/03/24 01:42
Laboratory Results
05/02/24 05/02/24 05/03/24
12:35 18:22 01:42
APTT 93.0 H 114.1 H 77.0 H
[2024-05-03 09:36] LABS: Urine Albumin Trace (Neg - Trace); Urine Bilirubin Negative (Negative); Urine Character Clear (Clear); Urine Color Yellow; Urine Glucose Negative (Negative); Urine Ketone Trace (Negative); Urine Leukocyte Negative (Negative); Urine Nitrite Negative (Negative); Urine Occult Blood Negative (Negative); Urine Urobilinogen 2+ (Neg - 1+)
[2024-05-03 09:52] LABS: ACT+ - POC 98 Seconds (82-134)
[2024-05-03 11:08] LABS: ACT+ - POC 448 Seconds (82-134)
--- NOTE | 2024-05-03 11:13 | CM ---
Addendum entered by Mary De La Fuente RN 05/03/24 16:06:
[facility] confirmed Dr Samano to follow patient after discharge
Addendum entered by Mary De La Fuente RN 05/03/24 11:36:
[facility] needs to confirm patient is active with PCP. CM to confirm.
Original Note:
Chart reviewed. Patient is in the OR today. Patient is independent of ADLS, lives with a friend in a [address], 5 BARR[address], 0 DME. Plan is for the patient to return home with his friend and VN. CM to follow
[2024-05-03 11:18] LABS: B.E. - POC 0.2 mmol/L; Glucose - POC 162 mg/dl (70-99); HCO3 - POC 25 mmol/L (21-29); Hematocrit - POC 40 % PCV (42-52); Hemodilution- POC No; Hemoglobin Calculated - POC 13.5; Ionized Calcium - POC 1.13 mmol/L (1.12-1.27); PCO2 - POC 43 mmHg (35-45); PO2 - POC 367 mmHg (80-100); POC Comment PRE; Potassium - POC 3.7 mmol/L (3.6-5.0); Sodium - POC 139 mmol/L (135-145); pH - POC 7.39 (7.35-7.45)
[2024-05-03 11:46] LABS: ACT+ - POC 469 Seconds (82-134)
[2024-05-03 11:56] LABS: B.E. - POC 4.5 mmol/L; Glucose - POC 179 mg/dl (70-99); HCO3 - POC 28 mmol/L (21-29); Hematocrit - POC 34 % PCV (42-52); Hemodilution- POC Yes; Hemoglobin Calculated - POC 11.4; Ionized Calcium - POC 1.04 mmol/L (1.12-1.27); PCO2 - POC 37 mmHg (35-45); PO2 - POC 554 mmHg (80-100); POC Comment CPB; Sodium - POC 140 mmol/L (135-145); pH - POC 7.49 (7.35-7.45)
[2024-05-03 12:07] LABS: ACT+ - POC 479 Seconds (82-134)
[2024-05-03 12:27] LABS: B.E. - POC 4.9 mmol/L; Glucose - POC 185 mg/dl (70-99); HCO3 - POC 28 mmol/L (21-29); Hematocrit - POC 34 % PCV (42-52); Hemodilution- POC Yes; Hemoglobin Calculated - POC 11.4; Ionized Calcium - POC 1.06 mmol/L (1.12-1.27); PCO2 - POC 35 mmHg (35-45); PO2 - POC 336 mmHg (80-100); POC Comment CPB; Potassium - POC 4.3 mmol/L (3.6-5.0); Sodium - POC 140 mmol/L (135-145); pH - POC 7.52 (7.35-7.45)
[2024-05-03 12:42] LABS: ACT+ - POC 481 Seconds (82-134)
[2024-05-03 13:11] LABS: B.E. - POC 4.1 mmol/L; Glucose - POC 180 mg/dl (70-99); HCO3 - POC 27 mmol/L (21-29); Hematocrit - POC 37 % PCV (42-52); Hemodilution- POC Yes; Hemoglobin Calculated - POC 12.5; Ionized Calcium - POC 1.05 mmol/L (1.12-1.27); PCO2 - POC 32 mmHg (35-45); PO2 - POC 322 mmHg (80-100); POC Comment CPB; Potassium - POC 4.3 mmol/L (3.6-5.0); Sodium - POC 141 mmol/L (135-145); pH - POC 7.52 (7.35-7.45)
[2024-05-03 13:14] LABS: ACT+ - POC 126 Seconds (82-134)
--- NOTE | 2024-05-03 13:53 | W.PN.CT.SURG ---
CT Surgery Operative Note
-
Pre-op Diagnosis: AFIB,
CHF
LV dysfunction
CAD
Post-op Diagnosis: Same
Procedure: Cabg x 4
delgadillo- diag/lad
ao-svg- ramus
ao- svg - pda
CPB without x clamp
Maze with RF ablation using Encompass
LAAL with 40 atricure clip
Cardioversion
REVH
RSF
Primary Surgeon: Selwyn
Assisting Surgeons: Anya. leg and chest
Specimen: None
Cultures: None
Complications / Blood Loss: None
Findings: Augustine confirming preop EF 30-35, postop EF >50
Severe LVH
DYLAN free of clot, post clip completely occluded with no flow an no residual pouch
good conduit
Severe cad
Severe AScending aortic plaque
Afib, on pump still afib post maze, internal cardioversion to NSR-
--- NOTE | 2024-05-03 13:53 | W.CVOR.SURPR ---
CVOR Surgeon Immed Pre Op
-
I have examined this patient prior to performance of the scheduled procedure.
The patient's condition is unchanged from the time of the dictated/written History and
Physical and the patient is able to undergo the scheduled procedure.
[2024-05-03 14:05] LABS: B.E. - POC 0.3 mmol/L; Glucose - POC 164 mg/dl (70-99); HCO3 - POC 25 mmol/L (21-29); Hematocrit - POC 35 % PCV (42-52); Hemodilution- POC Yes; Hemoglobin Calculated - POC 11.8; Ionized Calcium - POC 1.31 mmol/L (1.12-1.27); O2 Saturation %Calculated-POC 99.6 5 (92-96); PCO2 - POC 40 mmHg (35-45); PO2 - POC 187 mmHg (80-100); POC Comment POST; Potassium - POC 3.7 mmol/L (3.6-5.0); Sodium - POC 142 mmol/L (135-145)
[2024-05-03 14:25] LABS: Glucose - Point of Care 167 mg/dl (70-99)
[2024-05-03 14:34] LABS: B.E. -1.3 mmol/L; HCO3 24.3 mmol/L (21-28); Ionized Calcium 1.14 mMOL/L (1.15-1.33); O2 Saturation % 95.4 % (94-98); PCO2 43 mmHg (35-48); PO2 69 mmHg (83-108); Potassium 3.5 mMOL/L (3.5-5.1); Sodium 138 mMOL/L (136-145); pH 7.36 (7.35-7.45)
[2024-05-03 14:38] LABS: Hematocrit 36.2 % (39.0-52.0); Hemoglobin 12.6 g/dL (13.0-18.0); Platelet Count 169 10^3/uL (130-400)
--- NOTE | 2024-05-03 14:43 | PTCARENOTE ---
received pt from CVOR. pt intubated, vent per anesthesia. ET tube 22. NSR with prolonged QT, A/V wire rate at 45. CTx2 to -20cm wall suction no air leaks, tidaling, crepitus. harley draining clear, yellow urine. sternal incision approx. w/ surgical
adhesive fide. R groin puncture w/ surgical adhesive notary public. R leg incision w NADEEN wrap. RIJ cordis w/ swan 48, usual lines, lines leveled, flushed. PIV intact. L Radial A-line. post op labs and ekg obtained.
[2024-05-03 14:49] LABS: Blood Urea Nitrogen 19 mg/dl (9-20); Estimated Creatinine Clearance 72 ml/min; Glucose 162 mg/dl (70-99); INR 1.26; Magnesium 2.2 mg/dl (1.6-2.3); PT 15.9 Sec (11.4-14.6)
[2024-05-03 14:50] LABS: APTT 29.5 Sec (23.4-35.0)
[2024-05-03] MEDS: CALCIUM CHLORIDE 10% SYRINGE 50 ML IV (14:55)
[2024-05-03] MEDS: CALCIUM CHLORIDE 10% SYRINGE 50 MG IV (14:55)
[2024-05-03] MEDS: KCL 50 IV (14:55)
[2024-05-03] MEDS: NSS 500 IV (14:57)
[2024-05-03] MEDS: ANCEF 10 IV ×2 (14:57)
[2024-05-03] MEDS: NICODERM TRANSDERMAL TRANSDERM (14:57)
[2024-05-03] MEDS: PACERONE PO (14:58)
[2024-05-03] MEDS: LANTUS SC (14:59)
[2024-05-03] MEDS: LOPRESSOR PO ×2 (14:59→15:00)
[2024-05-03] MEDS: LOW STRENGTH ASPIRIN PO (14:59)
[2024-05-03] MEDS: NOVOLOG FLEXPEN-MODERATE RESISTANCE SC ×2 (14:59)
[2024-05-03] MEDS: NORVASC PO (14:59)
[2024-05-03] MEDS: NOVOLOG FLEXPEN SC ×2 (15:00→17:13)
[2024-05-03] MEDS: TYLENOL PO ×2 (15:00→22:11)
--- NOTE | 2024-05-03 15:18 | PTCARENOTE ---
ABG results reviewed, PO2 low, discussed with CT PA, Tidal volume increased to 600 and Fio2 increased as well up to 80%. Will recheck ABG per protocol and follow.
[2024-05-03 15:33] LABS: Glucose - Point of Care 151 mg/dl (70-99)
[2024-05-03 15:36] LABS: B.E. -0.2 mmol/L; O2 Saturation % 97.4 % (94-98); PCO2 37 mmHg (35-48); PO2 74 mmHg (83-108); pH 7.42 (7.35-7.45)
--- NOTE | 2024-05-03 15:37 | W.PN.CARDCBS ---
Addendum entered and electronically signed by Jonathan Askew MD 05/03/24 16:31:
Patient seen and examined
Agree with PA-C note and assessment
Agree with PA-C plan
Examined:
Patient intubated and sedated
Cor regular
Lungs clear to auscultation bilaterally
Abdomen soft nontender positive bowel sounds
Mediastinal tubes noted relatively dry
ET tube
Right Cordis with [place] in place
A-line
Assessment:
Acute hypoxic respiratory failure
Acute HFrEF
Atrial fibrillation with RVR, new diagnosis of unclear duration
Elevated troponin
Hyperglycemia, concern for diabetes, hgbA1c 8.5%
Elevated LFTs
Leukocytosis
Elevated ddimer
CAD with AL status post LAD PCI approximately 11 years ago at [facility]
Presumed history of paroxysmal atrial fibrillation
Hypertension
Hyperlipidemia
Ongoing tobacco use
ECHO 04/27/24: TDS, global hypokinesis with regional variability, EF 30 to 35%, mild concentric LVH with discrete upper septal thickening, aortic sclerosis, PAP 25 to 30 mmHg
Plan:
-Status post CABG x 4, SANCHEZ�diagonal/LAD, ao�SVG�ramus, AO�SVG�PDA, maze, left atrial appendage clip, cardioversion
-Reportedly IntraOp EF improved from 30% to 50%
-Has remained in sinus rhythm
-Postop EKG with deep septal and lateral T wave inversions, more pronounced but similar compared to preoperatively. Follow serial EKGs
-Off pressors. CI 2.34
-Hemoglobin 12.6, follow. Will need eventual OAC
-Eventual GDMT of cardiomyopathy/CHF as able
-unlikely able to afford SGLT2 inhibitor
-tobacco cessation
-Discussed with nursing, CT surgery
Original Note:
Documented by User: Sasha Eduardo PA-C 05/03/24 15:52
Today's Communication / Plan
-
Continue postoperative care
Eventual OAC
Eventual GDMT
Follow hemoglobin and EKG
Impression / Plan
-
Primary Pail Tester: remotely seen by [facility] Pail Tester, details unknown
Assessment:
Acute hypoxic respiratory failure
Acute HFrEF
Atrial fibrillation with RVR, new diagnosis of unclear duration
Elevated troponin
Hyperglycemia, concern for diabetes, hgbA1c 8.5%
Elevated LFTs
Leukocytosis
Elevated ddimer
CAD with AL status post LAD PCI approximately 11 years ago at [facility]
Presumed history of paroxysmal atrial fibrillation
Hypertension
Hyperlipidemia
Ongoing tobacco use
ECHO 04/27/24: TDS, global hypokinesis with regional variability, EF 30 to 35%, mild concentric LVH with discrete upper septal thickening, aortic sclerosis, PAP 25 to 30 mmHg
Plan:
-Status post CABG x 4, SANCHEZ�diagonal/LAD, ao�SVG�ramus, AO�SVG�PDA, maze, left atrial appendage clip, cardioversion
-Reportedly IntraOp EF improved from 30% to 50%
-Has remained in sinus rhythm
-Postop EKG with deep septal and lateral T wave inversions, more pronounced but similar compared to preoperatively. Follow serial EKGs
-Off pressors. CI 2.34
-Hemoglobin 12.6, follow. Will need eventual OAC
-Eventual GDMT of cardiomyopathy/CHF as able
-unlikely able to afford SGLT2 inhibitor
-tobacco cessation
-Discussed with nursing, CT surgery
Progress Note - Pail Tester
Subjective
Date of Service: May 03, 2024
Intubated, sedated
Objective
Labs:
05/03/24 14:22
Labs
Hgb 12.6 g/dL (13.0-18.0) L 05/03/24 14:22
Hct 36.2 % (39.0-52.0) L 05/03/24 14:22
Plt Count 169 10^3/uL (130-400) 05/03/24 14:22
PT 15.9 Sec (11.4-14.6) H 05/03/24 14:22
INR 1.26 05/03/24 14:22
APTT 29.5 Sec (23.4-35.0) 05/03/24 14:22
Sodium 142 mmol/L (135-145) 05/03/24 01:42
Potassium 3.8 mmol/L (3.5-5.1) 05/03/24 01:42
BUN 19 mg/dl (9-20) 05/03/24 14:22
Creatinine 1.0 mg/dL (0.7-1.3) 05/03/24 14:22
Glucose 162 mg/dl (70-99) H 05/03/24 14:22
Vital Signs and I&O:
Vital Signs
Temp Pulse Resp BP Pulse Ox
96.4 F L 61 12 135/94 96
05/03/24 15:00 05/03/24 15:00 05/03/24 15:00 05/03/24 08:10 05/03/24 15:22
Vital Signs
Temp Pulse Resp BP Pulse Ox
96.4 F L 61 12 135/94 96
05/03/24 15:00 05/03/24 15:00 05/03/24 15:00 05/03/24 08:10 05/03/24 15:22
Intake & Output
05/01/24 05/02/24 05/03/24 05/04/24
07:59 07:59 07:59 07:59
Intake Total 240 / 240 1117 / 1117 490 / 490 134.5 / 134.5
Output Total 2600 / 2600 300 / 300 300 / 300 275 / 275
Balance -2360 / -2360 817 / 817 190 / 190 -140.5 / -140.5
Physical Exam
Physical Exam
GEN: No distress, intubated, on Marlee hugger
HEENT: supple, anicteric, mmm, EOMI
LUNGS: CTA bilaterally, no wheezes/rales
CV: Reg, S1/S2, no murmur
EXT: No cyanosis, clubbing, edema
NEURO: sedated
SKIN: Warm, pink, dry. No rash. Sternotomy incision clean dry and intact

Documented by User: Jonathan Askew MD 05/03/24 16:29
Progress Note - Pail Tester
Subjective
Total Time Spent with Patient (in minutes): Patient seen and examined at the bedside
[2024-05-03 16:50] LABS: Glucose - Point of Care 118 mg/dl (70-99)
[2024-05-03 16:54] LABS: B.E. -0.1 mmol/L; HCO3 23.9 mmol/L (21-28); PCO2 36 mmHg (35-48); PO2 76 mmHg (83-108); pH 7.43 (7.35-7.45)
[2024-05-03] MEDS: LR 250 ML IV (17:11)
[2024-05-03] MEDS: NEURONTIN PO ×2 (17:13→22:11)
[2024-05-03 18:02] LABS: Glucose - Point of Care 149 mg/dl (70-99)
[2024-05-03 18:09] LABS: Hematocrit 34.5 % (39.0-52.0); Platelet Count 158 10^3/uL (130-400)
--- NOTE | 2024-05-03 18:10 | PTCARENOTE ---
pt with occasional PVCs, lab work pending
[2024-05-03 18:12] LABS: B.E. -0.7 mmol/L; HCO3 23.4 mmol/L (21-28); O2 Saturation % 96.6 % (94-98); PCO2 36 mmHg (35-48); PO2 74 mmHg (83-108); Potassium 4.8 mMOL/L (3.5-5.1); Sodium 137 mMOL/L (136-145); pH 7.42 (7.35-7.45)
--- NOTE | 2024-05-03 18:34 | PTCARENOTE ---
pt awoke abruptly, follows commands, able to move all extremeties, oral care provided, pt remains too drowsy CPAP.
[2024-05-03 18:57] LABS: Glucose - Point of Care 141 mg/dl (70-99)
[2024-05-03] MEDS: ANCEF 5 IV (20:08)
[2024-05-03] MEDS: ASPIRIN 300 MG RECTAL (20:08)
[2024-05-03] MEDS: SENOKOT-S PO (20:09)
--- NOTE | 2024-05-03 20:15 | PTCARENOTE ---
Assumed care of pt from dayswilbur RN. Walking rounds completed. Pt intubated and sleepy. Pt able to open eyes on command. Pt able to squeeze hand on right side and move right foot. Pt not moving left side at this time. CVPA aware. Pt has hx of left
sided weakness. Pt SR on the tele monitor. HR 60s. Temporary epicardial A/V wires intact and set to 45/10/10. BP 100s/60s. Levo infusing as ordered. PAPs 30s/teens. CVP 10-12. CI: 2.45 CO: 4.65. Pt intubated with #8 ETT, 22 cm @ right lip. See
worklist for full vent settings. POX 94-96%. Lung sounds diminished throughout. Mediastinal and Left pleural CT intact, to -20 suction, no airleak noted at this time, and output appropriate. Abdomen soft/round. Hypoactive BS. Celis catheter CDI and
draining yellow urine. All surgical sites stable. Right wrist 18 gauge CDI. Right IJ cordis w/ swan CDI. Left radial arterial line CDI. All lines leveled, zeroed, and flushed. Glycemic protocol followed. Aspirin administered - see MAR. See worklist
for full nursing assessment and interventions.
[2024-05-03 21:00] LABS: Glucose - Point of Care 148 mg/dl (70-99)
[2024-05-03 21:06] LABS: B.E. -1.8 mmol/L; HCO3 23.1 mmol/L (21-28); O2 Saturation % 97.3 % (94-98); PCO2 39 mmHg (35-48); PO2 77 mmHg (83-108); Potassium 4.3 mMOL/L (3.5-5.1); Sodium 137 mMOL/L (136-145); pH 7.38 (7.35-7.45)
--- NOTE | 2024-05-03 22:45 | PTCARENOTE ---
Pt extubated to 6 L NC @2235 by RT. Pt AAOx3. POX 94%. IS ~750. VSS.
[2024-05-03 23:02] LABS: Glucose - Point of Care 155 mg/dl (70-99)
[2024-05-03 23:31] LABS: B.E. -3.4 mmol/L; HCO3 21.4 mmol/L (21-28); PCO2 37 mmHg (35-48); PO2 85 mmHg (83-108); pH 7.37 (7.35-7.45)
[2024-05-04] VITALS (32 sets, daily range): BP systolic 102–157; BP diastolic 45–96; PULSE 65; O2SAT 95; BMI 29.6
[2024-05-04 00:12] LABS: Glucose - Point of Care 145 mg/dl (70-99)
--- NOTE | 2024-05-04 00:15 | PTCARENOTE ---
Pt reassessed. Pt SR on the tele monitor. HR 70s. Temporary epicardial A/V wires intact. Settings changed to VVI 45/10 by CTPA. BP 130s/70s. PAs 30s/teens. CVP 10. CI: 2.22 CO: 4.22. Pt on 6 L NC. POX 95%. Deep breathing encouraged. CT assessment
unchanged from previous. Celis catheter CDI and draining yellow urine. All surgical sites stable. [place] and a-line maintained. All lines leveled, zeroed, and flushed. Glycemic protocol followed. Pt tolerating ice chips. Call sifuentes within reach.
[2024-05-04] MEDS: OFIRMEV 100 IV (01:03)
[2024-05-04 01:08] LABS: Glucose - Point of Care 134 mg/dl (70-99)
[2024-05-04 02:04] LABS: Glucose - Point of Care 130 mg/dl (70-99)
[2024-05-04 03:11] LABS: Glucose - Point of Care 123 mg/dl (70-99)
[2024-05-04] MEDS: ANCEF 5 IV ×2 (03:13→12:55)
[2024-05-04 03:42] LABS: Hematocrit 33.2 % (39.0-52.0); Hemoglobin 11.7 g/dL (13.0-18.0); Mean Corp Hgb Conc. 35.2 g/dL (33.0-37.0); Mean Corpuscular Hgb 31.4 pg (27.0-31.0); Mean Platelet Volume 11.4 fL (7.4-10.4); Platelet Count 174 10^3/uL (130-400); Red Blood Cell Count 3.73 10^6/uL (4.70-6.10); Red Cell Dist. Width 12.7 % (11.5-14.5); White Blood Cell Count 17.8 10^3/uL (4.8-10.8)
[2024-05-04 04:03] LABS: ALT (SGPT) 45 U/L (0-50); AST (SGOT) 52 U/L (17-59); Albumin 2.8 g/dl (3.5-5.0); Alkaline Phosphatase 62 U/L (38-126); Blood Urea Nitrogen 19 mg/dl (9-20); Calcium 8.7 mg/dl (8.4-10.2); Carbon Dioxide 20 mmol/L (22-30); Chloride 111 mmol/L (98-107); Direct Bilirubin 0.2 mg/dl (0.0-0.4); Estimated Creatinine Clearance 80 ml/min; Glucose 113 mg/dl (70-99); Magnesium 2.1 mg/dl (1.6-2.3); Potassium 4.2 mmol/L (3.5-5.1); Sodium 143 mmol/L (135-145); Total Bilirubin 0.6 mg/dl (0.2-1.3); eGFR > 60.00
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
[2024-05-04] MEDS: LOPRESSOR 12.5 MG PO ×2 (04:35→08:21)
[2024-05-04 05:01] LABS: Glucose - Point of Care 107 mg/dl (70-99)
[2024-05-04] MEDS: TYLENOL 1000 MG PO ×3 (06:05→21:18)
--- NOTE | 2024-05-04 06:38 | PTCARENOTE ---
No acute changes in assessment. Pt SR w/ a prolonged QT on the tele monitor. Temporary A/V wires intact and set to VVI 45/10. HR 70s. BP slightly elevated. 150s/70s. Pt on 2 L NC. POX 94%. CT assessment unchanged. All surgical sites stable. Pt Lalita
dc'd. DTV @1200. [place] and a-line dc'd per order. Pt OOB to chair. Pt barely able to move left leg. States he 'drags it' at home when he walks. Call sifuentes within reach.
--- NOTE | 2024-05-04 07:06 | W.PN.ANS.POP ---
Anesthesia Post Operative
- Anesthesia Post Op Note
Vital Signs Stable-See Nursing Note: Yes
Airway Patent: Yes
Adequate Pain Control: Yes
Change in Mental Status: No
Current Postoperative Nausea & Vomiting: No
Anesthesia Complications: No
General Anesthetic Recall: No
Unplanned Admission: No
Post Op Hydration Adequate: Yes
--- NOTE | 2024-05-04 07:11 | PN.DE.MGMTRT ---
Insulin Management
- -
05/04/2024 Diabetes Management Consult Follow up
Patient admitted 04/27 with breathing problem, s/p cardiac cath 04/30. PMH includes information from chart, patient states he has no history, NM with stent 9 years ago, HTN, HLD, diabetes, HCL, SVT, a fib. COPD. On admission cr .8, eGFR > 60, A1C
8.5%.
Patient is.
05/04 POD 1 s/p CABG x 4. Currently receiving insulin infusion , glycemic protocol, requiring 1.7 to 2 units of insulin per hour. Will continue glycemic protocol today and transition tomorrow after lunch if stable. Recommend metformin 500 mg BID
with glipizide 5 mg daily.
Diabetes History
- -
Type of Diabetes: 2
Pre-Admission Diabetes Regimen
05/03/24 05/04/24
14:22 03:17
Creatinine 1.0 0.9
Lab Results
Hemoglobin A1c 8.5 % (4.0-5.6) H 04/27/24 04:50
Insulin Pump Settings
IP Diabetes Regimen
05/03/24 05/03/24 05/03/24
14:22 14:23 15:30
Glucose 162 H
POC Glucose 167 H 151 H
05/03/24 05/03/24 05/03/24
16:47 18:01 18:55
Glucose
POC Glucose 118 H 149 H 141 H
05/03/24 05/03/24 05/04/24
20:58 23:01 00:11
Glucose
POC Glucose 148 H 155 H 145 H
05/04/24 05/04/24 05/04/24
01:07 02:02 03:09
Glucose
POC Glucose 134 H 130 H 123 H
05/04/24 05/04/24
03:17 05:00
Glucose 113 H
POC Glucose 107 H
Patient Education
[2024-05-04 07:13] LABS: Glucose - Point of Care 114 mg/dl (70-99)
[2024-05-04] MEDS: NOVOLOG FLEXPEN 4 UNITS SC ×3 (07:57→17:27)
--- NOTE | 2024-05-04 08:12 | W.PN.INTV ---
Today's Communication / Plan
Recommendations
Goal SpO2 >90-94%
Goal Hb >8g/dL
Pain control
Continue with insulin drip per protocol
MAP >65
Cardiac rehab consult
Pain control
Assessment
-
58-year-old male homeless smoker of 2 packs of cigarettes daily with a history of CAD and stent but no other significant past medical history though he is a poor historian and does not seek medical attention often presented with severe shortness of
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
04/27/2024.
Impression:
Multivessel CAD s/p CABG x 4 (POD #1)
A-fib s/p and MAZE with radiofrequency ablation + left atrial appendage ligation with 40 mm Atricure clip (POD#1)
Respiratory failure-acute hypoxemic due to CHF
Acute HFrEF with acute decompensated heart failure (LVEF 35-40% via intraoperative LAURYN from 05/03/2024)
Rapid atrial fibrillation
Troponin elevation (peaked at 0.278 on 04/27/2024)
Transaminitis - resolved
Leukocytosis-resolved
Elevated D-dimer-1.16
Metabolic acidosis � resolved
Hyperglycemia-resolved
Left lower lobe consolidation/atelectasis-less likely pneumonia or malignancy
Right upper lobe pulmonary nodule-4 mm-incidentally noted CT 04/28/2024
Conditions present prior to admission:
CAD/stent-details unclear.
Probable COPD.
Tobacco addiction-2 packs daily.
Plan:
Patient successfully extubated on 05/03/2024 and is now on room air breathing comfortably saturating 90%
Maintain SpO2 >90-94%
prn nebulized bronchodilators - not currently bronchospastic
Smoking cessation counseling ongoing
Preop PFT obtained -- reviewed indicating mild restriction but overall adequate with no evidence of obstructive lung disease and normal gas exchange capacity.
Maintain MAP>65
Heart rate control with goal HR<110
Replete electrolytes with K>4, Mg>2
Monitor chest tube output (mediastinal chest tube now removed; left pleural chest tube placed to bulb)
Monitor hemoglobin
Monitor platelet count and coags
Transfuse blood products as needed to maintain Hb>7g/dL, plt>50k (given post-operative status)
CT surgery managing chest tubes
Cardiology on board and recommendations appreciated
Continue with GDMT as tolerated
Monitor blood sugar to maintain euglycemia with goal BG 140-180
Insulin drip per protocol - will likely need to be on drip until 05/05
A1c elevated at 8.5
D-dimer positive
Lower extremity ultrasound 04/29/2024-no evidence for DVT bilaterally
CT chest 04/28/2024-no pulmonary embolism, small bilateral pleural effusions, left lower lobe atelectasis-less likely pneumonia or neoplasm, 4 mm solid right upper lobe pulmonary nodule, small patchy opacification posterior left apex --> she will
need repeat CT chest in 4-6 weeks to follow up improvement of pleural effusions and LLL-bandlike atelectasis, and with continued outpatient follow up for her RUL 4mm nodule
Influenza negative
Observe off antibiotics
Trend WBC and monitor for fevers
Aspiration precautions
DVT prophylaxis
Early nutrition
Early mobilization
Outpatient pulmonary [id number]-[id number] cessation counseling, yearly low-dose lung cancer screening CT, PFTs, etc.
Dr. Cleveland had reviewed with this with patient.
Investigation Officer services will continue to follow along while he remains in the CVICU.
Critical care statement: A total of 41 minutes of critical care time was provided for this patient today. This includes management of ventilator, spontaneous breathing trial, arterial blood gases, pressors, of unstable vital signs, evaluation of the
patient at bedside, reviewing the patient's pertinent medical records including radiographs, microbiology, laboratory evaluations, and discussion with primary team and critical care nursing.
Diagnostic Data:
CXR 05/04/2024: Right internal jugular vascular sheath and left chest drain in position. No pneumothorax; Low lung volumes. Slightly increased left basilar opacity, most likely related to atelectasis.
CXR 05/03/2024: New postoperative changes; No pneumothorax; Cardiomegaly with borderline pulmonary edema
CXR 04/27/2024: Cardiomegaly with CHF
CT Chest 04/19/24- 1. No CTA evidence for an acute pulmonary thromboembolism.
2. Small bilateral pleural effusions.
3. Dense bandlike opacity in the anterior left lower lobe favored to represent atelectasis. Pneumonia or neoplasm would be considered less likely but continued imaging follow-up can be performed.
4. Posterior right lower lobe compressive atelectasis.
5. 4 mm solid pulmonary nodule in the right upper lobe.
6. Small patchy opacities in the posterior left lung apex, potentially mild residual alveolar edema or mild pneumonitis.
Duplex 04/29/24 - IMPRESSION: No evidence of deep venous thrombosis bilaterally.
EKG 04/27/2024-atrial fibrillation with rapid ventricular response, septal infarct, ST and T wave abnormalities laterally
ECHO 04/27/24- Technically difficult study. Normal left ventricular chamber size. Moderately reduced left ventricular systolic function. Global hypokinesis with regional variability. Left ventricular ejection fraction is 30-35% by visual
assessment. Mild concentric left ventricular hypertrophy with discrete upper septal thickening. Diastolic function indeterminate due to atrial fibrillation. Normal right ventricular size and function. Aortic sclerosis without stenosis. Estimated
pulmonary artery pressure of 25-30 mmHg, assuming a right atrial pressure of 3 mmHg. No prior study for comparison
[facility] 04/30/24- CONCLUSIONS
1. Significant multivessel coronary artery disease.
2. Elevated LVEDP at 28 mmHg.
Subjective Dataa
Subjective Data
Date of Service:
Date of Service: May 04, 2024
Chief Complaint: Investigation Officer Follow Up and Pulmonary Follow Up
Subjective:
Patient was seen and evaluated today at bedside. No acute events reported from overnight. He is on room air saturating 90% with heart rate 71 and BP 122/58. He remains on insulin drip at 3.5 units/hr. He denies headache, abdominal pain, nausea,
fevers or chills.
Review of Systems
General: Other (Negative unless mentioned above)
Objective Data
Data Reviewed
Vital Signs / I&O / Oxygen:
Vital Signs
Temp Pulse Resp BP Pulse Ox
97.5 F 72 18 137/80 93
05/04/24 08:00 05/04/24 09:00 05/04/24 09:00 05/04/24 08:00 05/04/24 09:00
Intake and Output
05/03/24 05/04/24 05/05/24
06:59 06:59 06:59
Intake Total 490 / 490 698.0 / 710.3 35.4 / 35.4
Output Total 300 / 300 1350 / 1380 75 / 75
Balance 190 / 190 -652.0 / -669.7 -39.6 / -39.6
SaO2 [CPAP/PSV] 95
SaO2 [SIMV] 95
SaO2 93
Nasal Cannula flow liters per 2
minute
Physical Exam
General: Respiratory Distress (n), Chills (negative) and Sweats (negative)
HEENT: Normocephalic and Anicteric
Cardiovascular: Rub and Other (normal rate)
Respiratory: Clear, Wheeze (n), Crackles (negative), Rhonchi (n), Non-Labored Respirations, Accessory Resp Muscle Use (n), Stridor (n) and Chest Tube (left pleural chest tube placed to bulb)
GI: Soft, Non Distended, Non Tender and Normal Bowel Sounds
Neurology: Awake, Alert and Tremors (negative)
Skin: Warm, Dry, Cyanosis (n), Jaundice (n) and Rash (n)
Labs/Micro/Reports
Lab Data
05/04/24 03:17
05/04/24 03:17
Laboratory Results
05/03/24 05/03/24 05/03/24
14:22 15:30 16:48
PT 15.9 H
INR 1.26
APTT 29.5
pH 7.36 7.42 7.43
pCO2 43 37 36
pO2 69 L 74 L 76 L
HCO3 24.3 24.0 23.9
O2 Delivery Level
05/03/24 05/03/24 05/03/24
18:01 20:59 23:22
PT
INR
APTT
pH 7.42 7.38 7.37
pCO2 36 39 37
pO2 74 L 77 L 85
HCO3 23.4 23.1 21.4
O2 Delivery Level
[2024-05-04] MEDS: ROXICODONE 5 MG PO ×3 (08:20→17:02)
[2024-05-04] MEDS: FLEXERIL 5 MG PO (08:20)
[2024-05-04] MEDS: PLAVIX 75 MG PO (08:21)
[2024-05-04] MEDS: MAGNESIUM OXIDE 500 MG PO ×2 (08:21→20:40)
[2024-05-04] MEDS: PROTONIX 40 MG PO (08:21)
[2024-05-04] MEDS: NEURONTIN 100 MG PO ×3 (08:21→21:18)
[2024-05-04] MEDS: LOW STRENGTH ASPIRIN 81 MG PO (08:21)
[2024-05-04] MEDS: NORVASC 5 MG PO (08:21)
[2024-05-04] MEDS: NICODERM TRANSDERMAL 21 MG TRANSDERM (08:21)
[2024-05-04] MEDS: SENOKOT-S 1 TABLET PO ×2 (08:21→20:41)
[2024-05-04] MEDS: BACTROBAN 2% OINTMENT 1 APPLIC NASAL ×2 (08:22→20:41)
--- NOTE | 2024-05-04 08:30 | PTCARENOTE ---
Addendum entered by Shoaib Sheridan RN 05/04/24 09:57:
Pt with mediastinal and left pleural chest tube in place to suction. No sign of air leak or crepitus. Drainage serosanguineous.
Original Note:
Assumed care of patient at 0700. Pt is awake, alert, and oriented. Pt with complaints of sternal pain, PRN Roxicodone administered for relief. Pt remains SR with prolong QT, HR 70's. BP 137/80 MAP 97. AV wires in place set to VVI 45/10/2. Pulse
oximetry 97% on 2L nasal cannula. Bowel sounds hypoactive. Tolerating clear liquid diet and PO medications. Pt is due to void. Midsternal incision approximated and BEATA. Right leg incision with david wrap overlay in place. Right groin puncture intact.
Right IJ cordis in place with KVO. Insulin gtt continued per glycemic protocol. Pt currently resting comfortably OOB in chair with call sifuentes within reach.
[2024-05-04 09:04] LABS: Glucose - Point of Care 97 mg/dl (70-99)
--- NOTE | 2024-05-04 09:53 | PTCARENOTE ---
AV wires insulated per order. Pt now on room air, pulse oximetry 95%. Mediastinal chest tube d/c'd per order. Left pleural chest tube placed to bulb.
[2024-05-04 11:30] LABS: Glucose - Point of Care 91 mg/dl (70-99)
[2024-05-04 12:54] LABS: Glucose - Point of Care 150 mg/dl (70-99)
[2024-05-04] MEDS: NSS IV (12:56)
--- NOTE | 2024-05-04 13:27 | W.PN.CARDCBS ---
Addendum entered and electronically signed by Sedrick Fontanez MD 05/04/24 15:50:
I saw and examined the patient.
The Orthopedic Shoe Maker's note was reviewed and I agree with the note.
Comment:
GEN: No distress, awake, Ox3
HEENT: supple, anicteric, mmm
LUNGS: CTA, no wheezes/rales
CV: Reg, S1/S2, 1/6 syst LSB, no gallop
ABD: soft, BS+, NT/ND
EXT: No edema
NEURO: Gross non-focal
SKIN: No rash
Plan:
Overall doing well and remains in sinus rhythm. QT seems improved. Okay to use amiodarone if needed.
Continue aspirin, Plavix, and atorvastatin.
Would switch to Toprol and add NADEEN inhibitor with reduced ejection fraction over next 24 to 48 hours.
Original Note:
Today's Communication / Plan
-
continue post op care
in SR
no issues with amiodarone from cardiac standpoint. follow QTc, improving
eventual OAC
GDMT of CM/CHF as able
Impression / Plan
-
Primary Candle Wicker: remotely seen by [facility] Candle Wicker, details unknown
Assessment:
Acute hypoxic respiratory failure
Acute HFrEF
Atrial fibrillation with RVR, new diagnosis of unclear duration
Elevated troponin with MV CAD by cath, Status post CABG x 4, SANCHEZ�diagonal/LAD, ao�SVG�ramus, AO�SVG�PDA, maze, left atrial appendage clip, cardioversion 05/03/24
Hyperglycemia, concern for diabetes, hgbA1c 8.5%
Elevated LFTs
Leukocytosis
Elevated ddimer
CAD with CT status post LAD PCI approximately 11 years ago at [facility]
Presumed history of paroxysmal atrial fibrillation
Hypertension
Hyperlipidemia
Ongoing tobacco use
ECHO 04/27/24: TDS, global hypokinesis with regional variability, EF 30 to 35%, mild concentric LVH with discrete upper septal thickening, aortic sclerosis, PAP 25 to 30 mmHg
Plan:
-Status post CABG x 4, SANCHEZ�diagonal/LAD, ao�SVG�ramus, AO�SVG�PDA, maze, left atrial appendage clip, cardioversion 05/03/24
-Reportedly IntraOp EF improved from 30% to 50%
-Remains in sinus rhythm on review of telemetry. EKG 05/04 with QTc improving. No issue from cardiac standpoint with starting p.o. amiodarone. would follow QTc with starting
-Hemoglobin 11.7 on aspirin, Plavix. Will need eventual OAC due to paroxysmal atrial fibrillation.
-Continues with wheezing on exam. follow volume status, required diuresis preop. also likely with underlying COPD
-norvasc started due to HTN. Eventual GDMT of cardiomyopathy/CHF
-unlikely able to afford SGLT2 inhibitor
-LFTs normalized. statin started
-tobacco cessation
-Discussed with nursing
Progress Note - Candle Wicker
Subjective
Date of Service: May 04, 2024
reports some pain with deep breathing or cough
Objective
Labs:
05/04/24 03:17
05/04/24 03:17
Labs
Hgb 11.7 g/dL (13.0-18.0) L 05/04/24 03:17
Hct 33.2 % (39.0-52.0) L 05/04/24 03:17
Plt Count 174 10^3/uL (130-400) 05/04/24 03:17
PT 15.9 Sec (11.4-14.6) H 05/03/24 14:22
INR 1.26 05/03/24 14:22
APTT 29.5 Sec (23.4-35.0) 05/03/24 14:22
Sodium 143 mmol/L (135-145) 05/04/24 03:17
Potassium 4.2 mmol/L (3.5-5.1) 05/04/24 03:17
BUN 19 mg/dl (9-20) 05/04/24 03:17
Creatinine 0.9 mg/dL (0.7-1.3) 05/04/24 03:17
Glucose 113 mg/dl (70-99) H 05/04/24 03:17
Vital Signs and I&O:
Vital Signs
Temp Pulse Resp BP Pulse Ox
97.1 F 75 18 102/45 90
05/04/24 11:00 05/04/24 13:00 05/04/24 13:00 05/04/24 13:00 05/04/24 13:00
Vital Signs
Temp Pulse Resp BP Pulse Ox
97.1 F 75 18 102/45 90
05/04/24 11:00 05/04/24 13:00 05/04/24 13:00 05/04/24 13:00 05/04/24 13:00
Intake & Output
05/02/24 05/03/24 05/04/24 05/05/24
07:59 07:59 07:59 07:59
Intake Total 1117 / 1117 490 / 490 710.3 / 722.6 68.6 / 68.6
Output Total 300 / 300 300 / 300 1380 / 1380 285 / 285
Balance 817 / 817 190 / 190 -669.7 / -657.4 -216.4 / -216.4
Physical Exam
Physical Exam
GEN: No distress, awake, alert, oriented x3. sitting in chair
HEENT: supple, anicteric, mmm, eomi
LUNGS: Wheezes B/L
CV: Reg, S1/S2, no murmur
EXT: No cyanosis, clubbing. trace edema of B/L LE
NEURO: Gross non-focal
SKIN: Warm,pink, dry. No rash.
[2024-05-04] MEDS: NOVOLIN R INSULIN INFUSION 100 IV (15:02)
[2024-05-04 15:06] LABS: Glucose - Point of Care 164 mg/dl (70-99)
--- NOTE | 2024-05-04 15:30 | PTCARENOTE ---
Pt worked with PT/OT, tolerated well. Pt remains very weak on left side requiring 2-3 RN assistance to get from chair to bed. Pt remains SR with HR 70's. BP 127/65 MAP 83. Pulse oximetry 94% on room air. Left pleural chest tube draining
serosanguineous drainage. Pt tolerating PO diet. Pt voiding without issues. Remains on insulin gtt per glycemic protocol. Pt with continued complaints of sternal pain, PRN pain medications administered per order.
--- NOTE | 2024-05-04 16:32 | CM ---
dc plan remains home with [facility] when medically stable.
[2024-05-04] MEDS: PACERONE 200 MG PO ×2 (16:54→21:18)
[2024-05-04 17:01] LABS: Glucose - Point of Care 101 mg/dl (70-99)
[2024-05-04] MEDS: LIPITOR 40 MG PO (17:02)
[2024-05-04 19:12] LABS: Glucose - Point of Care 126 mg/dl (70-99)
[2024-05-04] MEDS: LOPRESSOR 25 MG PO (20:41)
--- NOTE | 2024-05-04 21:00 | PTCARENOTE ---
Assumed care of pt from dayshift RN. Walking rounds completed. Pt AAOx3. Resting in bed at this time. SR w/ prolonged QT on the tele monitor. Temporary epicardial A/V wires insulated. HR 70s. BP stable. Weak pulses throughout. Trace edema. Pt on RA.
POX 91-94%. Left pleural CT to bulb intact. Lung sounds diminished throughout. Abdomen soft/nontender. +BS. Denies nausea. Pt voiding yellow urine in the urinal w/ help. All surgical sites stable. Right IJ cordis CDI. Right wrist 18 gauge CDI.
Glycemic protocol followed. Pt repositioned in bed. See worklist for full nursing assessment and interventions. Call sifuentes within reach.
[2024-05-04 21:18] LABS: Glucose - Point of Care 148 mg/dl (70-99)
[2024-05-04 23:17] LABS: Glucose - Point of Care 88 mg/dl (70-99)
[2024-05-05] VITALS (18 sets, daily range): BP systolic 125–168; BP diastolic 66–87; PULSE 65; BMI 29.4
--- NOTE | 2024-05-05 00:15 | PTCARENOTE ---
Previous assessment unchanged. Pt SR w/ prolonged QT on the tele monitor. HR 60-70s. BP stable. Pt on RA. POX 91-93%. Pt repositioned in bed. All surgical sites stable. Left pleural CT to bulb intact and draining appropriately. Glycemic protocol
followed. Call sifuentes within reach.
[2024-05-05 01:54] LABS: Glucose - Point of Care 104 mg/dl (70-99)
[2024-05-05] MEDS: ROXICODONE 5 MG PO ×3 (01:55→12:36)
[2024-05-05 03:15] LABS: Glucose - Point of Care 113 mg/dl (70-99)
[2024-05-05 03:34] LABS: Hematocrit 33.9 % (39.0-52.0); Hemoglobin 11.5 g/dL (13.0-18.0); Mean Corp Hgb Conc. 33.9 g/dL (33.0-37.0); Mean Corpuscular Hgb 31.5 pg (27.0-31.0); Mean Corpuscular Volume 92.9 fL (80.0-94.0); Mean Platelet Volume 11.7 fL (7.4-10.4); Platelet Count 156 10^3/uL (130-400); Red Blood Cell Count 3.65 10^6/uL (4.70-6.10); Red Cell Dist. Width 12.7 % (11.5-14.5); White Blood Cell Count 16.3 10^3/uL (4.8-10.8)
--- NOTE | 2024-05-05 03:53 | PTCARENOTE ---
No acute changes in assessment. Pt SR w/ prolonged QT on the tele monitor. HR 60-70s. BP 155/75. Pt on RA. POX 93%. Left pleural CT to bulb intact. All surgical sites stable. Labs drawn and sent. EKG obtained. No c/o pain at this time. Glycemic
protocol followed. Call sifuentes within reach.
[2024-05-05 04:23] LABS: Blood Urea Nitrogen 19 mg/dl (9-20); Calcium 8.4 mg/dl (8.4-10.2); Carbon Dioxide 24 mmol/L (22-30); Chloride 104 mmol/L (98-107); Estimated Creatinine Clearance 90 ml/min; Glucose 107 mg/dl (70-99); Magnesium 1.9 mg/dl (1.6-2.3); Potassium 4.1 mmol/L (3.5-5.1); Sodium 139 mmol/L (135-145); eGFR > 60.00
[2024-05-05 05:13] LABS: Glucose - Point of Care 115 mg/dl (70-99)
[2024-05-05] MEDS: TYLENOL 1000 MG PO ×3 (05:28→22:44)
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
[2024-05-05 07:23] LABS: Glucose - Point of Care 91 mg/dl (70-99)
[2024-05-05] MEDS: NORVASC 5 MG PO (08:13)
[2024-05-05] MEDS: SENOKOT-S 1 TABLET PO ×2 (08:13→20:39)
[2024-05-05] MEDS: MAGNESIUM OXIDE 500 MG PO ×2 (08:13→20:39)
[2024-05-05] MEDS: PACERONE 200 MG PO ×3 (08:13→22:49)
[2024-05-05] MEDS: LOPRESSOR 37.5 MG PO ×2 (08:14→20:39)
[2024-05-05] MEDS: PROTONIX 40 MG PO (08:14)
[2024-05-05] MEDS: NEURONTIN 100 MG PO ×3 (08:14→22:45)
[2024-05-05] MEDS: LOW STRENGTH ASPIRIN 81 MG PO (08:14)
[2024-05-05] MEDS: PLAVIX 75 MG PO (08:14)
[2024-05-05] MEDS: NICODERM TRANSDERMAL 21 MG TRANSDERM (08:14)
[2024-05-05] MEDS: BACTROBAN 2% OINTMENT 1 APPLIC NASAL ×2 (08:15→20:38)
[2024-05-05] MEDS: NOVOLOG FLEXPEN 4 UNITS SC ×2 (08:16→13:24)
[2024-05-05] MEDS: KCL 20 MEQ PO ×2 (08:27→10:01)
--- NOTE | 2024-05-05 08:44 | W.PN.INTV ---
Today's Communication / Plan
Recommendations
Diurese, repeat CXR in 1-2 days to assess stability of R-pleural effusion
Goal SpO2 >90-94%
Goal Hb >8g/dL
Pain control
Continue with insulin drip per protocol
MAP >65
Cardiac rehab consult
Pain control
Outpatient follow-up with repeat imaging with CT chest given RUL nodule and LLL LLL-bandlike atelectasis - we will arrange for office follow up.
Patient is now downgraded to CVICU�telemetry status. Hospital Account Manager/Pulmonary service will now sign off. Please reconsult if there are any additional questions/concerns, or if patient's respiratory status deteriorates.
Assessment
-
58-year-old male homeless smoker of 2 packs of cigarettes daily with a history of CAD and stent but no other significant past medical history though he is a poor historian and does not seek medical attention often presented with severe shortness of
breath unresponsive to 'albuterol inhaler' found to be tachycardic, tachypneic, and an SVT given adenosine with subsequent rapid atrial fibrillation and CHF-route manager consulted for respiratory failure/CHF/rapid A-fib/critical care management
04/27/2024.
Impression:
Multivessel CAD s/p CABG x 4 (POD #2)
A-fib s/p and MAZE with radiofrequency ablation + left atrial appendage ligation with 40 mm Atricure clip (POD#2)
Respiratory failure-acute hypoxemic due to CHF
Acute HFrEF with acute decompensated heart failure (LVEF 35-40% via intraoperative LAURYN from 05/03/2024)
New right-sided pleural effusion (as of CXR from 05/05/2024)
Rapid atrial fibrillation now in NSR
Troponin elevation (peaked at 0.278 on 04/27/2024)
Transaminitis - resolved
Leukocytosis
Elevated D-dimer-1.16
Metabolic acidosis � resolved
Hyperglycemia-resolved
Left lower lobe consolidation/atelectasis-less likely pneumonia or malignancy
Right upper lobe pulmonary nodule-4 mm-incidentally noted CT 04/28/2024
Conditions present prior to admission:
CAD/stent-details unclear.
Probable COPD.
Tobacco addiction-2 packs daily.
Plan:
Patient successfully extubated on 05/03/2024 and is now on room air breathing comfortably saturating 90%
Maintain SpO2 >90-94%
prn nebulized bronchodilators - not currently bronchospastic
CXR today shows a new right-sided pleural effusion � advise to diurese (given 40mg IV lasix today) and maintain net negative fluid status; repeat CXR in 1-2 days to follow-up stability otherwise he may need a thoracentesis
Smoking cessation counseling ongoing
Preop PFT obtained -- reviewed indicating mild restriction but overall adequate with no evidence of obstructive lung disease and normal gas exchange capacity.
Maintain MAP>65
Heart rate control with goal HR<110
Replete electrolytes with K>4, Mg>2
Monitor chest tube output left pleural chest tube placed to bulb)
Monitor hemoglobin
Monitor platelet count and coags
Transfuse blood products as needed to maintain Hb>7g/dL, plt>50k (given post-operative status)
CT surgery managing chest tubes
Cardiology on board and recommendations appreciated
Continue with GDMT as tolerated
Monitor blood sugar to maintain euglycemia with goal BG 140-180
Insulin drip per protocol - will be weaned off today, then recommend starting SQ insulin to maintain BG at goal as above
A1c elevated at 8.5
D-dimer positive
Lower extremity ultrasound 04/29/2024-no evidence for DVT bilaterally
CT chest 04/28/2024-no pulmonary embolism, small bilateral pleural effusions, left lower lobe atelectasis-less likely pneumonia or neoplasm, 4 mm solid right upper lobe pulmonary nodule, small patchy opacification posterior left apex --> he will need
repeat CT chest in 4-6 weeks to follow up improvement of pleural effusions and LLL-bandlike atelectasis, and with continued outpatient follow up for her RUL 4mm nodule
Influenza negative
Observe off antibiotics
Trend WBC and monitor for fevers
Aspiration precautions
DVT prophylaxis
Early nutrition
Encourage IS use
Early mobilization
Outpatient pulmonary [id number] cessation counseling, yearly low-dose lung cancer screening CT, PFTs, etc.
Dr. Cleveland had reviewed with this with patient.
Patient is now downgraded to CVICU�telemetry status. Hospital Account Manager/Pulmonary service will now sign off. Thank you for allowing us to be involved in the care of this patient. Please reconsult if there are any additional questions/concerns, or if
patient's respiratory status deteriorates.
Total time spent today was 75 minutes for this encounter. Time includes reviewing laboratory test/imaging results, reviewing pertinent medical records, obtaining and reviewing medical history, performing an appropriate exam, ordering medications,
tests and procedures. Time also includes documentation of this encounter, coordinating patient care and communicating with other healthcare professionals. Total time does not include separately billed tests performed on this date of service.
Diagnostic Data:
CXR 05/05/2024: Small-moderate new right pleural effusio; stable postoperative changes with no pneumothorax
CXR 05/04/2024: Right internal jugular vascular sheath and left chest drain in position. No pneumothorax; Low lung volumes. Slightly increased left basilar opacity, most likely related to atelectasis.
CXR 05/03/2024: New postoperative changes; No pneumothorax; Cardiomegaly with borderline pulmonary edema
CXR 04/27/2024: Cardiomegaly with CHF
CT Chest 04/19/24- 1. No CTA evidence for an acute pulmonary thromboembolism.
2. Small bilateral pleural effusions.
3. Dense bandlike opacity in the anterior left lower lobe favored to represent atelectasis. Pneumonia or neoplasm would be considered less likely but continued imaging follow-up can be performed.
4. Posterior right lower lobe compressive atelectasis.
5. 4 mm solid pulmonary nodule in the right upper lobe.
6. Small patchy opacities in the posterior left lung apex, potentially mild residual alveolar edema or mild pneumonitis.
Duplex 04/29/24 - IMPRESSION: No evidence of deep venous thrombosis bilaterally.
EKG 04/27/2024-atrial fibrillation with rapid ventricular response, septal infarct, ST and T wave abnormalities laterally
ECHO 04/27/24- Technically difficult study. Normal left ventricular chamber size. Moderately reduced left ventricular systolic function. Global hypokinesis with regional variability. Left ventricular ejection fraction is 30-35% by visual
assessment. Mild concentric left ventricular hypertrophy with discrete upper septal thickening. Diastolic function indeterminate due to atrial fibrillation. Normal right ventricular size and function. Aortic sclerosis without stenosis. Estimated
pulmonary artery pressure of 25-30 mmHg, assuming a right atrial pressure of 3 mmHg. No prior study for comparison
[facility] 04/30/24- CONCLUSIONS
1. Significant multivessel coronary artery disease.
2. Elevated LVEDP at 28 mmHg.
Subjective Dataa
Subjective Data
Date of Service:
Date of Service: May 05, 2024
Chief Complaint: Hospital Account Manager Follow Up and Pulmonary Follow Up
Subjective:
Patient was seen and evaluated today at bedside. Currently on insulin drip at 2.6 units/hr, with heart rate 64, BP 145/87 and saturating 95% on room air. He is sitting in a chair in no acute distress. He denies chest pain, SOB, headache, nausea,
fevers or chills.
Review of Systems
General: Other (Negative unless mentioned above)
Objective Data
Data Reviewed
Vital Signs / I&O / Oxygen:
Vital Signs
Temp Pulse Resp BP Pulse Ox
98.2 F 63 16 131/70 90
05/05/24 08:00 05/05/24 10:01 05/05/24 10:00 05/05/24 10:01 05/05/24 10:00
Intake and Output
05/04/24 05/05/24 05/06/24
06:59 06:59 06:59
Intake Total 698.0 / 710.3 277.1 / 289.4 144.1 / 144.1
Output Total 1350 / 1380 915 / 935 220 / 220
Balance -652.0 / -669.7 -637.9 / -645.6 -75.9 / -75.9
SaO2 [CPAP/PSV] 95
SaO2 [SIMV] 95
SaO2 90
Nasal Cannula flow liters per 2
minute
Physical Exam
General: Respiratory Distress (n), Comfortable, Chills (negative) and Sweats (negative)
HEENT: Normocephalic and Anicteric
Cardiovascular: S1-S2, Rub and Other (normal rate)
Respiratory: Clear, Wheeze (n), Crackles (negative), Rhonchi (n), Non-Labored Respirations, Accessory Resp Muscle Use (n), Stridor (n) and Chest Tube (left pleural chest tube placed to bulb)
GI: Soft, Non Distended, Non Tender and Normal Bowel Sounds
Neurology: Awake, Alert and Tremors (negative)
Skin: Warm, Dry, Cyanosis (n), Jaundice (n) and Rash (n)
Labs/Micro/Reports
Lab Data
05/05/24 03:19
05/05/24 03:19
--- NOTE | 2024-05-05 09:00 | PTCARENOTE ---
assumed care of pt from previous shift RN, sinus rhythm on tele, VSS, + peripheral pulses, generalized edema, epicardial pacing wire insulated. Lungs w fine crackles to right base, otherwise diminished bilaterally. Pox 94% on RA, coughing and deep
breathing encouraged. +bs, tolerating PO intake. LP bulb w minimal amount of drainage. Surgical sites intact. Plan of care reviewed w the pt and questions encouraged.
[2024-05-05] MEDS: LASIX 40 MG IV (10:02)
[2024-05-05 10:05] LABS: Glucose - Point of Care 179 mg/dl (70-99)
--- NOTE | 2024-05-05 10:47 | W.PN.CARDCBS ---
Today's Communication / Plan
-
Continue amiodarone and metoprolol.
Stop amlodipine and start lisinopril.
Continue diuresis.
Continue aspirin and Plavix but eventually would transition over to full anticoagulation with atrial fibrillation history.
Impression / Plan
-
Primary Contact Lens Blocker And Cutter: remotely seen by [facility] Contact Lens Blocker And Cutter, details unknown
Assessment:
Acute hypoxic respiratory failure
Acute HFrEF
Atrial fibrillation with RVR, new diagnosis of unclear duration
Elevated troponin with MV CAD by cath, Status post CABG x 4, SANCHEZ�diagonal/LAD, ao�SVG�ramus, AO�SVG�PDA, maze, left atrial appendage clip, cardioversion 05/03/24
Hyperglycemia, concern for diabetes, hgbA1c 8.5%
Elevated LFTs
Leukocytosis
Elevated ddimer
CAD with [place] status post LAD PCI approximately 11 years ago at [facility]
Presumed history of paroxysmal atrial fibrillation
Hypertension
Hyperlipidemia
Ongoing tobacco use
ECHO 04/27/24: TDS, global hypokinesis with regional variability, EF 30 to 35%, mild concentric LVH with discrete upper septal thickening, aortic sclerosis, PAP 25 to 30 mmHg
Plan:
-Status post CABG x 4, SANCHEZ�diagonal/LAD, ao�SVG�ramus, AO�SVG�PDA, maze, left atrial appendage clip, cardioversion 05/03/24
-Reportedly IntraOp EF improved from 30% to 50%
-Remains in sinus rhythm on review of telemetry. EKG 05/04 with QTc improving. Okay to continue amiodarone and metoprolol.
-Hemoglobin 11.7 on aspirin, Plavix. Will need eventual OAC due to paroxysmal atrial fibrillation.
-Continues with wheezing on exam. follow volume status, required diuresis preop. also likely with underlying COPD
-Would stop amlodipine and start lisinopril with depressed ejection fraction.
-unlikely able to afford SGLT2 inhibitor
-LFTs normalized. statin started
-tobacco cessation
-Discussed with nursing
Progress Note - Contact Lens Blocker And Cutter
Subjective
Date of Service: May 05, 2024
Having some incisional pains but otherwise doing well. Remains in sinus rhythm.
Objective
Labs:
05/05/24 03:19
05/05/24 03:19
Labs
Hgb 11.5 g/dL (13.0-18.0) L 05/05/24 03:19
Hct 33.9 % (39.0-52.0) L 05/05/24 03:19
Plt Count 156 10^3/uL (130-400) 05/05/24 03:19
PT 15.9 Sec (11.4-14.6) H 05/03/24 14:22
INR 1.26 05/03/24 14:22
APTT 29.5 Sec (23.4-35.0) 05/03/24 14:22
Sodium 139 mmol/L (135-145) 05/05/24 03:19
Potassium 4.1 mmol/L (3.5-5.1) 05/05/24 03:19
BUN 19 mg/dl (9-20) 05/05/24 03:19
Creatinine 0.8 mg/dL (0.7-1.3) 05/05/24 03:19
Glucose 107 mg/dl (70-99) H 05/05/24 03:19
Vital Signs and I&O:
Vital Signs
Temp Pulse Resp BP Pulse Ox
98.2 F 63 16 131/70 90
05/05/24 08:00 05/05/24 10:01 05/05/24 10:00 05/05/24 10:01 05/05/24 10:00
Vital Signs
Temp Pulse Resp BP Pulse Ox
98.2 F 63 16 131/70 90
05/05/24 08:00 05/05/24 10:01 05/05/24 10:00 05/05/24 10:01 05/05/24 10:00
Intake & Output
05/03/24 05/04/24 05/05/24 05/06/24
06:59 06:59 06:59 06:59
Intake Total 490 / 490 698.0 / 710.3 277.1 / 289.4 144.1 / 144.1
Output Total 300 / 300 1350 / 1380 915 / 935 220 / 220
Balance 190 / 190 -652.0 / -669.7 -637.9 / -645.6 -75.9 / -75.9
Physical Exam
Physical Exam
GEN: No distress, awake, Ox3
HEENT: supple, anicteric, mmm
LUNGS: CTA, no wheezes/rales
CV: Reg, S1/S2, 1/6 syst LSB, no rub
ABD: soft, BS+, NT/ND
EXT: No edema
NEURO: Gross non-focal
SKIN: sternotomy
[2024-05-05 12:23] LABS: Glucose - Point of Care 132 mg/dl (70-99)
--- NOTE | 2024-05-05 12:41 | PTCARENOTE ---
VSS, sinus rhythm on tele, sitting OOB to chair, pain well controlled w PRN meds.
[2024-05-05] MEDS: GLUCOPHAGE 500 MG PO ×2 (15:03→17:47)
[2024-05-05] MEDS: KCL 10 MEQ PO (15:03)
[2024-05-05] MEDS: FLEXERIL 5 MG PO ×2 (15:03→22:46)
[2024-05-05] MEDS: LANTUS 0.12 UNITS SC (15:03)
[2024-05-05] MEDS: NSS 500 IV (15:04)
--- NOTE | 2024-05-05 15:56 | PTCARENOTE ---
CT dressing changed, glycemic protocol discontinued, CHG bath completed.
[2024-05-05] MEDS: LIPITOR 40 MG PO (17:48)
[2024-05-05 17:49] LABS: Glucose - Point of Care 145 mg/dl (70-99)
[2024-05-05] MEDS: NOVOLOG FLEXPEN-MODERATE RESISTANCE SC (17:49)
[2024-05-05] MEDS: ROXICODONE 2.5 MG PO (20:40)
--- NOTE | 2024-05-05 21:00 | PTCARENOTE ---
Report received from ELENA De La Rosa. Walking rounds done. Pt awake, alert, oriented x 4. Speech clear. L sided hemiparesis preexisiting prior to CV surgery and remains. Pt helped to sitting, then standing to try to void. 2 RN assist. Pt voided onto pad
(missed urinal). Bladder scanned for 266 mls urine. Pt later voided 150 mls clear, yellow urine. BP elevated 168 systolic. Metoprolol 37.5 mg and Roxicodone 2.5 mg po given. (pt c/o pain 5/10-to sternum)-PA made aware of BP and meds given. Sats on
room air 95%. BBS present. Decreased to B bases. CDB and IS encouraged. IS peak 750 mls. Pt with moist productive cough, white sputum, thin and small. Audible heart tones. Pt in SR/ Palpable Radial and DP pulses. For wound assessment, see flowsheet.
Belly soft, nontender. Normoactive bs x 4. No flatus yet. No BM since OR. Pt given CHG bath, new pad and gown. Face washed. Refused mouth care for now. Ongoing plan of care.
[2024-05-05 22:57] LABS: Glucose - Point of Care 173 mg/dl (70-99)
--- NOTE | 2024-05-05 23:30 | PTCARENOTE ---
VS done. BP 164/70's Left arm and 166/70's right arm. Pt still c/o incisional pain to sternum 12/15. Flexeril 5 mg po given, with scheduled Tylenol and gabapentin. Glucose at bedtime is 173. PA made aware of BP, glucose. PA at bedside to assess pt.
Will continue to monitor ongoing BP measurements after pain medication given. Pt positioned onto L side with pillow propped. Sats 93-95% on room air.
[2024-05-06] VITALS (10 sets, daily range): BP systolic 139–165; BP diastolic 64–87; BMI 28.6
--- NOTE | 2024-05-06 00:35 | PTCARENOTE ---
BP down to 151/81. L arm. PA made aware.
[2024-05-06] MEDS: ROXICODONE 2.5 MG PO ×2 (02:42→20:37)
[2024-05-06 02:44] LABS: Hematocrit 32.4 % (39.0-52.0); Hemoglobin 11.2 g/dL (13.0-18.0); Mean Corp Hgb Conc. 34.6 g/dL (33.0-37.0); Mean Corpuscular Hgb 30.4 pg (27.0-31.0); Mean Corpuscular Volume 87.8 fL (80.0-94.0); Mean Platelet Volume 11.1 fL (7.4-10.4); Platelet Count 162 10^3/uL (130-400); Red Blood Cell Count 3.69 10^6/uL (4.70-6.10); Red Cell Dist. Width 12.8 % (11.5-14.5); White Blood Cell Count 14.5 10^3/uL (4.8-10.8)
--- NOTE | 2024-05-06 02:45 | PTCARENOTE ---
BP 152/69. Pt c/o 5/10 sternal pain. Roxicodone 2.5 mg given for pain. Labs drawn and sent. Pt repositioned. Small amount of urine on pad. Pericare done and coviderm pad changed. Pt atempting to go to sleep.
[2024-05-06 03:08] LABS: Blood Urea Nitrogen 16 mg/dl (9-20); Calcium 8.4 mg/dl (8.4-10.2); Carbon Dioxide 26 mmol/L (22-30); Chloride 102 mmol/L (98-107); Estimated Creatinine Clearance 103 ml/min; Glucose 177 mg/dl (70-99); Magnesium 1.8 mg/dl (1.6-2.3); Potassium 4.1 mmol/L (3.5-5.1); Sodium 137 mmol/L (135-145); eGFR > 60.00
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
[2024-05-06] MEDS: NSS 500 IV (05:05)
--- NOTE | 2024-05-06 05:28 | PTCARENOTE ---
Portable CXR done. Pt repositioned in bed. After CXR completed, pt stated he felt dyspnea. HOB increased to 40 degrees. Sats 92-93% on room air. RR 18 breaths/min. O2 applied at 2L/NC. Pt states he feels he is breathing shallowly. He is unsure if it
is due to pain. Lungs auscultated. BBS present. Decreased to B bases. Sats on 2L/NC 96-97%. O2 down to 1L/NC. Sats 97%. PA notified of dyspnea and with CXR result. Pt slept poorly overnight and is drifting off to sleep, yet will arouse to voice and
remains oriented, answering questions appropriately.
[2024-05-06] MEDS: TYLENOL 1000 MG PO ×3 (06:27→22:47)
--- NOTE | 2024-05-06 06:48 | PTCARENOTE ---
Pt helped up to sitting then standing. Refused to use rolling walker. Concerned about stability. 3 RNs assisted pt to standing scale to be weighed. Pt then helped to chair. VS done. See flowsheet. Pt denies dyspnea. 1L/NC. Sats 97%. C/O sternal pain
with movement. Tylenol 1 GM given as scheduled. Pt falling asleep in chair. Call sifuentes within reach.
[2024-05-06] MEDS: NICODERM TRANSDERMAL 21 MG TRANSDERM (09:02)
[2024-05-06] MEDS: GLUCOPHAGE 500 MG PO ×2 (09:03→17:31)
[2024-05-06] MEDS: ZESTRIL 5 MG PO (09:03)
[2024-05-06] MEDS: NEURONTIN 100 MG PO ×3 (09:03→22:47)
[2024-05-06] MEDS: MAGNESIUM OXIDE 500 MG PO ×2 (09:03→20:37)
[2024-05-06] MEDS: SENOKOT-S 1 TABLET PO ×2 (09:03→20:38)
[2024-05-06] MEDS: PLAVIX 75 MG PO (09:03)
[2024-05-06] MEDS: PROTONIX 40 MG PO (09:03)
[2024-05-06] MEDS: LASIX 20 MG PO (09:03)
[2024-05-06] MEDS: PACERONE 200 MG PO ×3 (09:03→22:47)
[2024-05-06] MEDS: GLUCOTROL 5 MG PO (09:04)
[2024-05-06] MEDS: LOW STRENGTH ASPIRIN 81 MG PO (09:04)
[2024-05-06] MEDS: LOPRESSOR 37.5 MG PO ×2 (09:04→20:38)
[2024-05-06] MEDS: BACTROBAN 2% OINTMENT 1 APPLIC NASAL ×2 (09:04→20:38)
[2024-05-06] MEDS: KCL 30 MEQ PO (09:08)
[2024-05-06] MEDS: NOVOLOG FLEXPEN-MODERATE RESISTANCE 1 UNITS SC (09:08)
[2024-05-06 09:09] LABS: Glucose - Point of Care 162 mg/dl (70-99)
--- NOTE | 2024-05-06 10:12 | W.PN.CARDCBS ---
Today's Communication / Plan
-
Slowly recovering.
Switch Lopressor to Toprol over next 24 hours. Continue lisinopril.
Continue aspirin Plavix and atorvastatin.
Okay to continue amiodarone. Remains in sinus.
Impression / Plan
-
Primary Cardiovascular Radiologic Technologist: remotely seen by [facility] Cardiovascular Radiologic Technologist, details unknown
Assessment:
Acute hypoxic respiratory failure
Acute HFrEF
Atrial fibrillation with RVR, new diagnosis of unclear duration
Elevated troponin with MV CAD by cath, Status post CABG x 4, SANCHEZ�diagonal/LAD, ao�SVG�ramus, AO�SVG�PDA, maze, left atrial appendage clip, cardioversion 05/03/24
Hyperglycemia, concern for diabetes, hgbA1c 8.5%
Elevated LFTs
Leukocytosis
Elevated ddimer
CAD with [place] status post LAD PCI approximately 11 years ago at [facility]
Presumed history of paroxysmal atrial fibrillation
Hypertension
Hyperlipidemia
Ongoing tobacco use
ECHO 04/27/24: TDS, global hypokinesis with regional variability, EF 30 to 35%, mild concentric LVH with discrete upper septal thickening, aortic sclerosis, PAP 25 to 30 mmHg
Plan:
-Status post CABG x 4, SANCHEZ�diagonal/LAD, ao�SVG�ramus, AO�SVG�PDA, maze, left atrial appendage clip, cardioversion 05/03/24
-Reportedly IntraOp EF improved from 30% to 50%
-Remains in sinus rhythm on review of telemetry. EKG 05/04 with QTc improving. Okay to continue amiodarone.
-Hemoglobin 11.7 on aspirin, Plavix. Will need eventual OAC due to paroxysmal atrial fibrillation.
-Switch to Toprol XL . Cont Lisinopril
-unlikely able to afford SGLT2 inhibitor
-LFTs normalized. statin started
-tobacco cessation
-Discussed with nursing
Progress Note - Cardiovascular Radiologic Technologist
Subjective
Date of Service: May 06, 2024
Remains in sinus. Somewhat weak but continues to recover.
Objective
Labs:
05/06/24 02:33
05/06/24 02:33
Labs
Hgb 11.2 g/dL (13.0-18.0) L 05/06/24 02:33
Hct 32.4 % (39.0-52.0) L 05/06/24 02:33
Plt Count 162 10^3/uL (130-400) 05/06/24 02:33
PT 15.9 Sec (11.4-14.6) H 05/03/24 14:22
INR 1.26 05/03/24 14:22
APTT 29.5 Sec (23.4-35.0) 05/03/24 14:22
Sodium 137 mmol/L (135-145) 05/06/24 02:33
Potassium 4.1 mmol/L (3.5-5.1) 05/06/24 02:33
BUN 16 mg/dl (9-20) 05/06/24 02:33
Creatinine 0.7 mg/dL (0.7-1.3) 05/06/24 02:33
Glucose 177 mg/dl (70-99) H 05/06/24 02:33
Vital Signs and I&O:
Vital Signs
Temp Pulse Resp BP Pulse Ox
98.2 F 60 18 149/78 96
05/06/24 08:00 05/06/24 10:00 05/06/24 08:00 05/06/24 09:00 05/06/24 08:30
Vital Signs
Temp Pulse Resp BP Pulse Ox
98.2 F 60 18 149/78 96
05/06/24 08:00 05/06/24 10:00 05/06/24 08:00 05/06/24 09:00 05/06/24 08:30
Intake & Output
05/04/24 05/05/24 05/06/24 05/07/24
06:59 06:59 06:59 06:59
Intake Total 698.0 / 710.3 277.1 / 289.4 430.1 / 430.1 110 / 110
Output Total 1350 / 1380 915 / 935 2455 / 2455
Balance -652.0 / -669.7 -637.9 / -645.6 -2024.9 / -4.9 110 / 110
Physical Exam
Physical Exam
GEN: No distress, awake, Ox3
HEENT: supple, anicteric, mmm
LUNGS: CTA, no wheezes/rales
CV: Reg, S1/S2, no rub
ABD: soft, BS+, NT/ND
EXT: No edema
NEURO: Gross non-focal
SKIN: No rash
--- NOTE | 2024-05-06 10:41 | PTCARENOTE ---
assumed care of pt from previous shift RN, sinus rhythm on tele, VSS, + peripheral pulses, trace edema. Lungs diminished, pox 97% on RA. +bs, tolerating PO intake, voids spontaneously, incont at times. Post op sites intact, cordis and PIV flush
easily. plan of care reviewed w the pt and questions encouraged.
--- NOTE | 2024-05-06 11:46 | PTCARENOTE ---
cordis and LP CT removed as ordered. VSS, pt resting in bed. call sifuentes system and fall precautions reviewed w the pt and questions encouraged.
[2024-05-06 13:06] LABS: Glucose - Point of Care 102 mg/dl (70-99)
[2024-05-06] MEDS: NOVOLOG FLEXPEN-MODERATE RESISTANCE SC ×2 (13:22→17:31)
[2024-05-06] MEDS: FLEXERIL 5 MG PO (15:03)
[2024-05-06 17:07] LABS: Glucose - Point of Care 112 mg/dl (70-99)
[2024-05-06] MEDS: LIPITOR 40 MG PO (17:31)
--- NOTE | 2024-05-06 21:00 | PTCARENOTE ---
Assumed care of pt from dayschuckft RN. Walking rounds completed. Pt AAOx3. SR on the tele monitor. HR 60s. Temporary epicardial A/V wires insulated. BP slightly elevated. Palpable pulses throughout. Trace edema. Pt on RA. POX 95%. Lung sounds
diminished at the base. CT dressing CDI. All surgical sites stable. Pt OOB to void in the bathroom w/o issue. Pt stand by assist to walk. Pt w/ hx of left sided weakness. PIV x1 CDI. See worklist for full nursing assessment and interventions. Call
sifuentes within reach.
[2024-05-07] VITALS (22 sets, daily range): BP systolic 137–188; BP diastolic 71–99; PULSE 60; O2SAT 96–98; BMI 28.7
[2024-05-07] MEDS: ZESTRIL 5 MG PO (00:43)
--- NOTE | 2024-05-07 01:12 | PTCARENOTE ---
Pt reassessed. Remains SR on the tele monitor. HR 60s. temporary A/V wires intact and insulated. BP elevated - 177/85. One time dose lisinopril ordered - see OCT. Pt on RA. POX 96%. All surgical sites stable. Call sifuentes within reach.
[2024-05-07] MEDS: XANAX 0.25 MG PO (01:47)
[2024-05-07] MEDS: APRESOLINE 5 MG IV (01:48)
--- NOTE | 2024-05-07 01:54 | PTCARENOTE ---
BP remains elevated. CTPA aware. IV hydralazine ordered - see OCT.
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
[2024-05-07 04:07] LABS: Hemoglobin 11.9 g/dL (13.0-18.0); Mean Corpuscular Hgb 30.7 pg (27.0-31.0); Mean Corpuscular Volume 87.6 fL (80.0-94.0); Mean Platelet Volume 10.9 fL (7.4-10.4); Platelet Count 198 10^3/uL (130-400); Red Blood Cell Count 3.88 10^6/uL (4.70-6.10); Red Cell Dist. Width 12.7 % (11.5-14.5); White Blood Cell Count 14.6 10^3/uL (4.8-10.8)
--- NOTE | 2024-05-07 04:08 | PTCARENOTE ---
Pt reassessed. Remains SR on the tele monitor. HR 60s. BP remains elevated - see VS in worklist. Pt on RA. POX 95%. All surgical sites stable. Pt repositioned in bed. EKG obtained. Labs drawn and sent. Pt denies pain at this time. Call sifuentes within
reach.
[2024-05-07 04:34] LABS: Blood Urea Nitrogen 16 mg/dl (9-20); Calcium 8.5 mg/dl (8.4-10.2); Carbon Dioxide 23 mmol/L (22-30); Chloride 103 mmol/L (98-107); Estimated Creatinine Clearance 120 ml/min; Glucose 116 mg/dl (70-99); Magnesium 1.9 mg/dl (1.6-2.3); Sodium 137 mmol/L (135-145); eGFR > 60.00
[2024-05-07] MEDS: TYLENOL 1000 MG PO (06:03)
[2024-05-07 08:21] LABS: Glucose - Point of Care 118 mg/dl (70-99)
[2024-05-07] MEDS: PROTONIX 40 MG PO (08:22)
[2024-05-07] MEDS: TOPROL XL 50 MG PO (08:22)
[2024-05-07] MEDS: GLUCOPHAGE 500 MG PO (08:22)
[2024-05-07] MEDS: GLUCOTROL 5 MG PO (08:22)
[2024-05-07] MEDS: BACTROBAN 2% OINTMENT 1 APPLIC NASAL (08:22)
[2024-05-07] MEDS: MAGNESIUM OXIDE 500 MG PO (08:22)
[2024-05-07] MEDS: NOVOLOG FLEXPEN-MODERATE RESISTANCE SC (08:22)
[2024-05-07] MEDS: ZESTRIL 10 MG PO ×2 (08:22→11:35)
[2024-05-07] MEDS: LOW STRENGTH ASPIRIN 81 MG PO (08:23)
[2024-05-07] MEDS: PACERONE 200 MG PO ×2 (08:23→16:17)
[2024-05-07] MEDS: PLAVIX 75 MG PO (08:23)
[2024-05-07] MEDS: SENOKOT-S PO (08:23)
[2024-05-07] MEDS: NEURONTIN 100 MG PO ×2 (08:23→16:17)
[2024-05-07] MEDS: NSS IV (08:24)
[2024-05-07] MEDS: NICODERM TRANSDERMAL 21 MG TRANSDERM (08:24)
--- NOTE | 2024-05-07 08:45 | PTCARENOTE ---
Assumed care of patient at 0700. Pt is awake, alert, and oriented. No complaints of pain at this time at this time. Pt remains SR with prolonged QT, HR 60's. BP 161/90 MAP 108. Scheduled morning BP medications administered. AV wires insulated. Pulse
oximetry 94% on room air. Pt tolerating PO. Voiding without issue in bathroom. Midsternal incision approximated and BEATA. Right leg incision and right groin puncture approximated and BEATA. Pt ambulated in room with RN assistance without issue.
--- NOTE | 2024-05-07 09:25 | PN.DE.MGMTRT ---
Insulin Management
- -
05/07/2024: Diabetes Management F/U:
58 year old male admitted 04/27 with breathing problem, s/p cardiac cath 04/30.
PMH includes: [place] with stent 9 years ago, HTN, HLD, diabetes, HCL, SVT, a fib. COPD, although patient states he has no history.
On admission Cr 0.8, eGFR > 60, A1C 8.5%.
Patient is awake, A/O x3, sitting up in chair.
POD # 4 s/p CABG x 4. 05/05 pt transitioned off glycemic protocol to Metformin 500 mg BID with glipizide 5 mg daily.
05/06 premeal glucose stable and in range of 102 to 162, fasting 116 this AM
Will add Farxiga 10mg daily, 1st dose now. Cont Metformin 500mg BID and Glipizide 5mg daily. Change from moderate to low corrective
Change diet from 2000 to 1800 abiel.
Pt has a glucose monitor for home use.
Diabetes History
- -
Type of Diabetes: 2
Pre-Admission Diabetes Regimen
05/07/24
04:00
Creatinine 0.6 L
Lab Results
Hemoglobin A1c 8.5 % (4.0-5.6) H 04/27/24 04:50
Insulin Pump Settings
IP Diabetes Regimen
05/06/24 05/06/24 05/07/24
13:05 17:06 04:00
Glucose 116 H
POC Glucose 102 H 112 H
05/07/24
08:20
Glucose
POC Glucose 118 H
Meal type: Breakfast
Patient Education
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
--- NOTE | 2024-05-07 10:29 | W.PN.CARDCBS ---
Addendum entered and electronically signed by Tano Gr MD 05/07/24 16:27:
Attending addendum: Patient seen and examined. PA note reviewed and findings independently performed by me. Briefly, 58-year-old gentleman with multivessel coronary artery disease and diabetes. He has no family physician. He presented with an
acute coronary syndrome and underwent surgical revascularization for multivessel coronary artery disease with SANCHEZ-diagonal/LAD, SVG-PDA, SVG-ramus, LA appendage and maze procedure
Primary Card: Initially seen by Dr. Denise Vásquez
PCP: None
RECOMMENDATIONS
-Aspirin and Plavix
-In 2 weeks the plan is to convert to aspirin / Eliquis
-HE NEEDS FOLLOWUP WITH A PCP: Someone needs to follow his diabetes. Discussed with Case Management who states that [facility] will arrange for PCP, however, he HAS to fill out paperwork for [facility]
Original Note:
Today's Communication / Plan
-
-discharge today
-start Eliquis for parxoysmal afib 2 weeks after discharge. He will be on ASA/Plavix x 2 weeks, then change to ASA/Eliquis. f/u at [facility] 06/13/24- apptmt made
Impression / Plan
-
Primary Branch Account Manager: remotely seen by [facility] Branch Account Manager, details unknown
Assessment:
Acute hypoxic respiratory failure
Acute HFrEF
Atrial fibrillation with RVR, new diagnosis of unclear duration
Elevated troponin with MV CAD by cath, Status post CABG x 4, SANCHEZ�diagonal/LAD, ao�SVG�ramus, AO�SVG�PDA, maze, left atrial appendage clip, cardioversion 05/03/24
Hyperglycemia, concern for diabetes, hgbA1c 8.5%
Elevated LFTs
Leukocytosis
Elevated ddimer
CAD with [place] status post LAD PCI approximately 11 years ago at [facility]
Presumed history of paroxysmal atrial fibrillation
Hypertension
Hyperlipidemia
Ongoing tobacco use
ECHO 04/27/24: TDS, global hypokinesis with regional variability, EF 30 to 35%, mild concentric LVH with discrete upper septal thickening, aortic sclerosis, PAP 25 to 30 mmHg
Plan:
-Status post CABG x 4, SANCHEZ�diagonal/LAD, ao�SVG�ramus, AO�SVG�PDA, maze, left atrial appendage clip, cardioversion 05/03/24, Now POD 4
-Reportedly IntraOp EF improved from 30% to 50%
-Remains in sinus rhythm on review of telemetry. HRs in 60s. EKG 05/07/24 with stable QTc @ 541 msec. Okay to continue amiodarone-dose decreasing to 200 mg BID on discharge. Starting Eliquis 2 weeks post-discharge, see below.
-Hemoglobin 11.7 on aspirin, Plavix. Continue ASA/Plavix for 2 weeks post-discharge, then switch to ASA and Eliquis 5 mg bid, given h/o paroxysmal atrial fibrillation.
-Patient does not have a prescription plan, but is applying for medical assistance. He has been giving a coupon card for a 1 month supply of Eliquis. He knows he needs to be seen in our office to obtain further supply of Eliquis. An appointment
has been scheduled for 06/13/2024.
-Switched to Toprol XL . Cont Lisinopril.
-unlikely able to afford SGLT2 inhibitor, and therefore is not being discharged on one.
-LFTs normalized. statin started
-cardiac rehab, to be arranged after seen as outpatient
-tobacco cessation
Progress Note - Branch Account Manager
Subjective
Date of Service: May 07, 2024
remains in NSR
plan for discharge today
will start Eliquis 2 weeks post-discharge. Pt to be discharged on Plavix and ASA, then transitioned to ASA and Eliquis in 2 weeks.
Objective
Labs:
05/07/24 04:00
05/07/24 04:00
Labs
Hgb 11.9 g/dL (13.0-18.0) L 05/07/24 04:00
Hct 34.0 % (39.0-52.0) L 05/07/24 04:00
Plt Count 198 10^3/uL (130-400) D 05/07/24 04:00
PT 15.9 Sec (11.4-14.6) H 05/03/24 14:22
INR 1.26 05/03/24 14:22
APTT 29.5 Sec (23.4-35.0) 05/03/24 14:22
Sodium 137 mmol/L (135-145) 05/07/24 04:00
Potassium 4.0 mmol/L (3.5-5.1) 05/07/24 04:00
BUN 16 mg/dl (9-20) 05/07/24 04:00
Creatinine 0.6 mg/dL (0.7-1.3) L 05/07/24 04:00
Glucose 116 mg/dl (70-99) H 05/07/24 04:00
Vital Signs and I&O:
Vital Signs
Temp Pulse Resp BP Pulse Ox
98.7 F 65 18 161/90 94
05/07/24 08:21 05/07/24 08:21 05/07/24 08:21 05/07/24 08:17 05/07/24 09:35
Vital Signs
Temp Pulse Resp BP Pulse Ox
98.7 F 65 18 161/90 94
05/07/24 08:21 05/07/24 08:21 05/07/24 08:21 05/07/24 08:17 05/07/24 09:35
Intake & Output
05/05/24 05/06/24 05/07/24 05/08/24
06:59 06:59 06:59 06:59
Intake Total 277.1 / 289.4 430.1 / 430.1 110 / 110
Output Total 915 / 935 2455 / 2455 750 / 750
Balance -637.9 / -645.6 -2024.9 / -2024.9 -640 / -640
Physical Exam
Physical Exam
GEN: No distress, awake, Ox3
HEENT: supple, anicteric, mmm
LUNGS: CTA, no wheezes/rales
CV: Reg, S1/S2, 1/6 syst LSB
ABD: soft, BS+, NT/ND
EXT: No edema
NEURO: Gross non-focal
SKIN: No rash
[2024-05-07 11:05] LABS: Glucose - Point of Care 68 mg/dl (70-99)
[2024-05-07 11:25] LABS: Glucose - Point of Care 107 mg/dl (70-99)
--- NOTE | 2024-05-07 11:30 | W.[place]-PDMP ---
[place]-PDMP
-
Checked the [place]- Prescription Drug Monitoring Program website, no red flags identified; safe to proceed with prescription.
--- NOTE | 2024-05-07 11:37 | PTCARENOTE ---
AccuCheck 68. Apple juice given. Repeat AccuCheck 107. Pt remains SR with prolonged QT, HR 60's. BP 153/[address] PATENT PARALEGAL, [place], 10mg Lisinopril administered per order. Pt currently going to 2 view x-ray.
--- NOTE | 2024-05-07 12:30 | PTCARENOTE ---
AV wires cut with CT [place] AYALA.
--- NOTE | 2024-05-07 13:20 | PTCARENOTE ---
Large amount of bleeding noted at site of previous epicardial wires during routine bedside check; Patient asymptomatic; VSS; TONY Mathews notified and at bedside - stopped bleeding and covered site with new dressing;
--- NOTE | 2024-05-07 15:25 | CM ---
spoke to pt in room, PT is recommending rehab and pt is refusing. Dr buckner is aware and was in to talk to pt. dc plan is for dc to home with his roommate/friend and VN to assess for PT, OT.
[2024-05-07] MEDS: TYLENOL PO (16:08)
[2024-05-07] MEDS: LIPITOR 40 MG PO (17:28)
[2024-05-07] MEDS: GLUCOPHAGE PO (17:28)
--- NOTE | 2024-05-07 17:36 | CM ---
pt given 30 day free coupon for eliquis. [facility] phone number provided to pt with instructions for him to call them for help with the medical assist applic. , left message for [facility] to reach out to pt as well
--- NOTE | 2024-05-09 10:26 | W.HF.CON ---
Heart Failure
- LV Function
Left ventricular function study result: LV Ejection fraction >35% - 40%
Ejection Fraction Percentage: 30-40
- ARNI
Patient already on ARNI: No
Heart Failure ARNI Contraindication: Patient Refusal
- ACEI/ARB
Patient already on ACEI/ARB: Yes
- Beta Hardy
Patient already on Evidence Based Beta Hardy: Yes
- Mineralocorticord Receptor Antagonist
Patient already on MRA: No
Heart Failure MRA Contraindication: Potentially Non-compliant
- SGLT-2 Inhibitor
Patient already on SGLT-2 Inhibitor: No
Heart Failure SGLT-2 Inhibitor Contraindication: Patient Refusal
- Afib Anticoagulation
Patient already on Anticoagulation for Afib: Yes
- NYHA CHF Classification
NYHA CHF Classification Level: Class III - Symptoms w/ min exertion, interferes w/ nml daily activity
- ACC/AHA Stage
ACC/AHA Stage: Stage C: Symptomatic Heart Failure
== END 2024-05-07 19:06 | disposition home or self-care (01) | DRG 233 ==
LOC: CVICU 08:04
PROVIDERS: Anesthesiology; Clinical Nurse Specialist Acute Care; Hospitalist; Internal Medicine Interventional Cardiology; Nurse Practitioner; Physician Assistant; Physician Assistant Medical; ADMITTING PHYSICIAN Internal Medicine; ATTENDING PHYSICIAN Thoracic Surgery (Cardiothoracic Vascular Surgery); CONSULT PHYSICIAN Internal Medicine Cardiovascular Disease; CONSULT PHYSICIAN Internal Medicine Critical Care Medicine; EMERGENCY PHYSICIAN Student in an Organized Health Care Education/Training Program
PROC: 5A09357 Assistance with Respiratory Ventilation, Less than 24 Consecutive Hours, Continuous Positive Airway Pressure (ICD-10-PCS; 2024-04-27)
PROC: 4A023N7 Measurement of Cardiac Sampling and Pressure, Left Heart, Percutaneous Approach (ICD-10-PCS; 2024-04-30)
PROC: B2111ZZ Fluoroscopy of Multiple Coronary Arteries using Low Osmolar Contrast (ICD-10-PCS; 2024-04-30)
PROC: B2151ZZ Fluoroscopy of Left Heart using Low Osmolar Contrast (ICD-10-PCS; 2024-04-30)
PROC: 02L70CK Occlusion of Left Atrial Appendage with Extraluminal Device, Open Approach (ICD-10-PCS; 2024-05-03)
PROC: B24BZZ4 Ultrasonography of Heart with Aorta, Transesophageal (ICD-10-PCS; 2024-05-03)
PROC: 02100Z9 Bypass Coronary Artery, One Artery from Left Internal Mammary, Open Approach (ICD-10-PCS; 2024-05-03)
PROC: 02580ZZ Destruction of Conduction Mechanism, Open Approach (ICD-10-PCS; 2024-05-03)
PROC: 06BP4ZZ Excision of Right Saphenous Vein, Percutaneous Endoscopic Approach (ICD-10-PCS; 2024-05-03)
PROC: 5A1221Z Performance of Cardiac Output, Continuous (ICD-10-PCS; 2024-05-03)
PROC: 021209W Bypass Coronary Artery, Three Arteries from Aorta with Autologous Venous Tissue, Open Approach (ICD-10-PCS; 2024-05-03)
PROC: 5A2204Z Restoration of Cardiac Rhythm, Single (ICD-10-PCS; 2024-05-03)
DX: I21.4 Non-ST elevation (NSTEMI) myocardial infarction (principal); I50.23 Acute on chronic systolic (congestive) heart failure; J96.01 Acute respiratory failure with hypoxia; Z59.01 Sheltered homelessness; E87.20 Acidosis, unspecified; D62 Acute posthemorrhagic anemia; J98.11 Atelectasis; I25.10 Atherosclerotic heart disease of native coronary artery without angina pectoris; I48.0 Paroxysmal atrial fibrillation; F17.210 Nicotine dependence, cigarettes, uncomplicated; I11.0 Hypertensive heart disease with heart failure; E78.00 Pure hypercholesterolemia, unspecified; J44.9 Chronic obstructive pulmonary disease, unspecified; I25.5 Ischemic cardiomyopathy; R91.1 Solitary pulmonary nodule; H54.61 Unqualified visual loss, right eye, normal vision left eye; E11.65 Type 2 diabetes mellitus with hyperglycemia; F12.90 Cannabis use, unspecified, uncomplicated; I25.2 Old myocardial infarction; Z11.52 Encounter for screening for COVID-19; Z59.7 Insufficient social insurance and welfare support; Z82.49 Family history of ischemic heart disease and other diseases of the circulatory system; Z87.820 Personal history of traumatic brain injury; Z91.128 Patient's intentional underdosing of medication regimen for other reason; Z95.5 Presence of coronary angioplasty implant and graft
CPT/HCPCS: 94727; 94729; 51702; 71045; 71046; 71275; 80048; 80053; 80061; 80076; 81003; 82248; 82330; 82565; 82805; 82947; 82962; 83036; 83735; 83880; 84132; 84145; 84302; 84484; 84520; 85014; 85018; 85025; 85027; 85049; 85379; 85610; 85730; 86140; 86850; 86900; 86901; 86920; 87502; 87811; 93005; 93306; 93312; 93320; 93325; 93458; 93880; 93970; 94002; 94060; 94640; 94660; 96365; 96366; 96375; 97116; 97163; 97164; 97167; 97168; 97530; 97535; 99152; 99291; C1894; Q9950; Q9967

== ENCOUNTER 2024-06-04 10:19 | Emergency (ER) | payer MEDICAID, SELFPAY ==
[2024-06-04 10:27] VITALS: BP 235/113
--- NOTE | 2024-06-04 10:56 | ED.GENMED ---
History of Present Illness
General
Chief Complaint: Blood Pressure Problem
Source: patient
Exam Limitations: none
Time Seen by Provider: 06/04/24 10:42
History of Present Illness
History of Present Illness:
58-year-old male presents in referral from CT surgery's office for elevated blood pressure. 1 month ago, he had CABG x 4. His blood pressure medicine was increased 1 week ago from 50 mg of metoprolol daily to 100 mg of metoprolol daily and 20 mg
of lisinopril to 40 mg daily. He has been taking this as prescribed for the past week. He denies chest pain shortness of breath fatigue. He has been urinating well. No fever. No other complaints at this time.
Phy Exam
Physical Exam
Physical Exam:
General: Well-appearing male no acute respiratory distress
HEENT: Normocephalic atraumatic
Heart: Regular rate and rhythm no murmurs
Lungs: Clear no wheeze
Extremities: No cyanosis or edema
Skin: Well-appearing surgical incision over the midline of the anterior chest
Course
Orders/Labs/Results
Orders:
Orders
06/04/24 10:20
Electrocardiogram (*1) Urgent
Reason for Study: Chest Pain
06/04/24 10:21
EKG- Treatment ONCE
06/04/24 11:17
Complete Blood Count/With Diff Urgent
Comprehensive Metabolic Panel Urgent
06/04/24 13:15
Electrocardiogram (*1) Urgent
Reason for Study: Hypertension, Benign
EKG- Treatment ONCE
HydrALAZINE [Apresoline] 50 mg PO NOW STA
Abnormal Lab Results
06/04/24
11:17
RBC 4.69 L 10^6/uL
(4.70-6.10)
Glucose 113 H mg/dl
(70-99)
06/04/24 11:17
06/04/24 11:17
Vital Signs
Initial and Last Documented VS:
Initial Vital Signs
Temp Pulse Resp BP Pulse Ox
97.7 F 70 16 235/113 98
06/04/24 10:27 06/04/24 10:27 06/04/24 10:27 06/04/24 10:27 06/04/24 10:27
Last Documented Vital Signs
Temp Pulse Resp BP Pulse Ox
97.7 F 67 18 194/100 97
06/04/24 10:27 06/04/24 13:07 06/04/24 13:07 06/04/24 13:07 06/04/24 13:07
MDM/Problems Addressed
Differential Diagnosis Includes:
Patient sent in for evaluation of blood pressure. He was at his surgeon's office prior to arrival and they were consistently getting elevated levels. Recent increase in his blood pressure medicine without any significant changes to his blood
pressure. Will check labs. EKG shows sinus rhythm with T wave inversions laterally however these are not new.
*Critical Care Note
Total Time (30-74mins, 75-104mins- exclusive of procedures): Not Applicable
Update Note
Update Note:
Patient reevaluated multiple times. Still symptom-free. Discussed with cardiology who saw the patient. They recommended initiating patient on 50 mg of hydralazine twice a day. Is given his first dose here. Expresses his desire to go home. His
wishes not to stay.
ED Attending Note
-
Portions of this chart may have been created with voice recognition software.� Occasional wrong word or��sound alike� substitutions may have occurred due to the inherent limitations of voice recognition software.
Discharge Plan
Departure
Patient Disposition: Home (Routine Discharge)
Date of Disposition: 06/04/24
Time of Disposition: 14:44
Patient with high blood pressure during this ER visit?: Yes
Discharge Problem:
Hypertension
Instructions: High Blood Pressure (DC)
Prescriptions:
New
hydralazine 50 mg tablet
50 mg PO BID Qty: 60 0RF
No Action
atorvastatin 40 mg Tablet
40 mg PO QPM Qty: 60 1RF
metformin 500 mg Tablet
500 mg PO BID@0800,1700 Qty: 60 1RF
acetaminophen 325 mg Tablet
650 mg PO Q4HPRN PRN (Reason: mild pain,headache,temp >101F ) Qty: 0 0RF
amiodarone 200 mg Tablet
200 mg PO BID 14 Days Qty: 28 0RF
metoprolol succinate 50 mg Tablet Extended Release 24 Hr
50 mg PO DAILY Qty: 60 1RF
clopidogrel 75 mg Tablet
75 mg PO DAILY Qty: 14 0RF
pantoprazole 40 mg Tablet,Delayed Release (Dr/Ec)
40 mg PO DAILY Qty: 60 1RF
nicotine 21 mg/24 hr Patch 24 Hour
21 mg transdermal DAILY Qty: 30 0RF
aspirin 81 mg Tablet,Chewable
81 mg PO DAILY Qty: 0 0RF
oxycodone 5 mg Tablet
2.5 mg PO Q4HPRN PRN (Reason: severe pain) Qty: 15 0RF
Eliquis 5 mg tablet
5 mg PO BID Qty: 60 0RF
Rx Instructions:
DO NOT START UNTIL 2 weeks after discharge (start on 05/22 in the morning)
amiodarone 200 mg tablet
200 mg PO DAILY Qty: 60 0RF
Rx Instructions:
Start two weeks after discharge (start on 05/22)
lisinopril 20 mg tablet
20 mg PO DAILY Qty: 60 0RF
glipizide 2.5 mg tablet
2.5 mg PO DAILY Qty: 30 0RF
Referrals:
NONE,* [Family Provider] -
Activity Restrictions/Additional Instructions:
Add hydralazine 50 mg twice a day. Continue to follow-up with your doctors as planned. Return if worse otherwise
Interventions
Interventions:
*Risk Screen - Suicide Last Done: 06/04/24 10:27
*Neglect/Abuse Screening Last Done: 06/04/24 10:27
ED- Fall Risk Assessment Last Done: 06/04/24 11:05
ED- Cardiac Assessment Last Done: 06/04/24 11:05
ED- Neurological Assessment Last Done: 06/04/24 11:05
ED- Pulmonary Assessment Last Done: 06/04/24 11:05
Discharge Date and Time
Print Language: PORTUGUESE
[2024-06-04 11:24] VITALS: BP 193/82
[2024-06-04 11:29] LABS: % Eosinophils 5.5 % (0-6); % Immature Granulocytes 0.4 % (0-0.5); % Lymphocytes 30.7 % (20.5-51.1); % Monocytes 4.9 % (1.7-9.3); % Neutrophils 57.5 % (42.2-75.2); Absolute Basophils 0.1 10^3/uL (0-0.2); Absolute Eosinophils 0.6 10^3/uL (0-0.7); Absolute Lymphocytes 3.2 10^3/uL (1.2-3.4); Absolute Monocytes 0.5 10^3/uL (0.1-0.6); Hematocrit 39.4 % (39.0-52.0); Hemoglobin 13.8 g/dL (13.0-18.0); Mean Corpuscular Hgb 29.4 pg (27.0-31.0); Mean Platelet Volume 9.2 fL (7.4-10.4); Nucleated Red Blood Cells % 0 % (-); Platelet Count 312 10^3/uL (130-400); Red Blood Cell Count 4.69 10^6/uL (4.70-6.10); Red Cell Dist. Width 12.8 % (11.5-14.5); White Blood Cell Count 10.4 10^3/uL (4.8-10.8)
[2024-06-04 11:41] LABS: ALT (SGPT) 25 U/L (0-50); AST (SGOT) 28 U/L (17-59); Albumin 4.4 g/dl (3.5-5.0); Alkaline Phosphatase 92 U/L (38-126); Blood Urea Nitrogen 16 mg/dl (9-20); Calcium 9.7 mg/dl (8.4-10.2); Carbon Dioxide 25 mmol/L (22-30); Chloride 102 mmol/L (98-107); Glucose 113 mg/dl (70-99); Potassium 4.4 mmol/L (3.5-5.1); Sodium 137 mmol/L (135-145); Total Bilirubin 0.8 mg/dl (0.2-1.3); Total Protein 7.3 g/dl (6.3-8.2); eGFR > 60.00
--- NOTE | 2024-06-04 12:34 | CON.CAR ---
Addendum entered and electronically signed by Trent Danielle DO 06/04/24 15:11:
I saw and examined the patient.
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
Comment:
Plan:
He is one month s/p CABG x 4, SANCHEZ�diagonal/LAD, ao�SVG�ramus, AO�SVG�PDA, maze, left atrial appendage clip
Remains hypertensive at home despite uptitration of Lisinopril and Toprol.
Discussed adding Hydralazine 50 mg BID. He is receiving first dose now in ER and will monitor
He does not want to be admitted.
He had been on Norvasc but given LV dysfunction will try to avoid CCB for now.
Remains in sinus and appears euvolemic.
EKG is stable.
Will delay cardiac rehab another week to allow for time for better bp control.
He has been recommended not to smoke.
He already has follow up with cardiology scheduled for next week.
Original Note:
Consultation
Consultation Request
Date/Time Consultation Requested: 06/04/2024, 12:08 pm
Date/Time Consultation Performed: 06/04/2024, 12:35 pm
Requesting Provider: Brandon Vincent PA-C
Performing Provider: VICENTE Loza for Dr Danielle
Reason for Consultation: high blood pressure
Medical History
-
Chief Complaint: elevated blood pressures
History of Present Illness:
Patient is a 58 yo M with PMH of CAD s/p CABG x 4, Maze with RF ablation, left atrial appendage ligation with 40 atricure clip on 05/03/2024, initially presenting with non-ST elevation OH and atrial fibrillation on 04/27/2024, prior OH with LAD PCI
~11 years ago at [facility], hypertension, hyperlipidemia, type 2 diabetes, smoker. Post CABG he was found to have LV dysfunction with EF 30 to 35%. He was discharged on Plavix x 2 weeks then transitioned to Eliquis 5 mg twice daily,
amiodarone, metoprolol succinate 50 mg daily, and lisinopril 20 mg daily. Since discharge his blood pressure has been elevated, as high as 200/100. Metoprolol was uptitrated to 100 mg daily and lisinopril was uptitrated to 40 mg daily. He was
seen by CT surgery today for follow-up of his CABG. While there his systolic blood pressure was 210-230/ range systolically. He was sent to the ED.
He denies headaches, vision changes, dizziness. Since discharge he has felt well in general with no chest pain, shortness of breath, palpitations, lightheadedness, fevers, or chills. He's had no LE edema, PND, orthopnea. He has not required a
diuretic. He has a visiting nurse twice a week who has noted elevated BPs and called our office with the above adjustments made. He is walking 5-10 minutes every hour and has no FERNÁNDEZ. Checks weights daily - stable at 170 lbs. Morning glucose has
been 135-137. He has almost completely stopped smoking- he 'takes a drag' if he's around others who are smoking but has not smoked a whole cigarette since discharge. He is currently living with a friend and relies on others for transportation.
PMH:
CAD with OH status post LAD PCI approximately 11 years ago at [facility]
CABG x 4 (SANCHEZ to diagonal/LAD; aorta to SVG to ramus; aorta to SVG to PDA) with maze with RF ablation, LAAL with 40 atricure clip, [facility] on 05/03/2024
paroxysmal atrial fibrillation
Hypertension
Hyperlipidemia
tobacco use
DM Type 2
cardiomyopathy
Past Medical History
Past Medical History: Other (in HPI)
Past Surgical History: Other (CABG x 4, MAZE ablation, LAAL w/ 40 mm Atricure clip, 05/03/24, lithrotripsy)
Social History
Tobacco: Smoker (2 ppd)
Personal: Single
Living: With Roomate
Family History
Family History: Early CAD (in father)
Allergies / Home Medications
Allergy/AdvReac Type Severity Reaction Status Date / Time
No Known Allergies Allergy Verified 06/04/24 10:29
�Medication �Instructions �Recorded �Confirmed �Type
acetaminophen 325 mg tablet 650 mg (2 x 325 mg) PO Q4HPRN PRN 05/07/24 Rx
mild pain,headache,temp >101F #0
tabs
amiodarone 200 mg tablet 200 mg PO BID Arrhythmia 14 days 05/07/24 Rx
#28 tabs
amiodarone 200 mg tablet 200 mg PO DAILY Arrhythmia #60 tabs 05/07/24 Rx
apixaban 5 mg tablet (Eliquis) 5 mg PO BID Blood clot 05/07/24 Rx
prevention/tx #60 tabs
aspirin 81 mg chewable tablet 81 mg PO DAILY #0 tabs 05/07/24 Rx
atorvastatin 40 mg tablet 40 mg PO QPM High cholesterol #60 05/07/24 Rx
tabs
clopidogrel 75 mg tablet 75 mg PO DAILY Blood clot 05/07/24 Rx
prevention/tx #14 tabs
glipizide 2.5 mg tablet 2.5 mg PO DAILY Diabetes #30 tabs 05/07/24 Rx
lisinopril 20 mg tablet 20 mg PO DAILY Blood pressure #60 05/07/24 Rx
tabs
metformin 500 mg tablet 500 mg PO BID@0800,1700 Diabetes 05/07/24 Rx
#60 tabs
metoprolol succinate 50 mg 50 mg PO DAILY Blood pressure #60 05/07/24 Rx
tablet,extended release 24 hr tabs
nicotine 21 mg/24 hr daily 21 mg transdermal DAILY Smoking 05/07/24 Rx
transdermal patch cessation #30 ea
oxycodone 5 mg tablet 2.5 mg (1/2 x 5 mg) PO Q4HPRN PRN 05/07/24 Rx
severe pain #15 tabs
pantoprazole 40 mg tablet,delayed 40 mg PO DAILY Gastrointestinal 05/07/24 Rx
release issue #60 tabs
Review of Systems
-
History Source: Patient
All other systems: Negative unless noted
Physical Exam
Vital Signs
Temp Pulse Resp BP Pulse Ox
97.7 F 66 18 193/82 97
06/04/24 10:27 06/04/24 11:24 06/04/24 11:24 06/04/24 11:24 06/04/24 11:24
Lab Results
06/04/24 11:17
06/04/24 11:17
GEN: No distress, awake, Ox3
HEENT: supple, anicteric, mmm
LUNGS: CTA, no wheezes/rales
CV: Reg, S1/S2, no murmur
ABD: soft, BS+, NT/ND
EXT: No edema
NEURO: Gross non-focal
SKIN: No rash
Impression / Plan
-
Primary Worm Packer: remotely seen by [facility] Worm Packer, details unknown, plan to followup at [facility]
Impression:
uncontrolled HTN
CAD s/p CABG x4 05/03/24
NSTEMI 04/27/24
LV dysfunction, EF 30-35%
Paroxysmal atrial fibrillation
Elevated troponin with MV CAD by cath, Status post CABG x 4, SANCHEZ�diagonal/LAD, ao�SVG�ramus, AO�SVG�PDA, maze, left atrial appendage clip, cardioversion 05/03/24
CAD with OH status post LAD PCI approximately 11 years ago at [facility]
Hypertension
Hyperlipidemia
Ongoing tobacco use
ECHO 04/27/24: TDS, global hypokinesis with regional variability, EF 30 to 35%, mild concentric LVH with discrete upper septal thickening, aortic sclerosis, PAP 25 to 30 mmHg
LAURYN intraop 05/03/24: EF 35-40%, mod LVH, mild-mod MR
Cardiac cath 04/30/24: LAD 70-80% mid instent restenosis @ level of takeoff of diagonal branch. D1 80-85% ostial. CIRC prox and mid 60-70% stenosis. Ramus I 85% prox. RCA mod diffuse ostial to prox RCA up to 40%; mid RCA 40%; lower RPDA 80%.
Plan:
-He is one month s/p CABG x 4, SANCHEZ�diagonal/LAD, ao�SVG�ramus, AO�SVG�PDA, maze, left atrial appendage clip
-BPs have been consistently elevated in the home setting despite uptitration of Lisinopril and Toprol.
-would add Hydralazine 50 mg BID to current regimen. Give first dose now and observe BP response
-given LV dysfunction trying to avoid CCB but could also consider use of Amlodipine, pauline if LV function improves
-Remains in sinus rhythm on review of telemetry. HRs in 60s, no symptoms suggestive of recurrent afib- continue Amiodarone and Eliquis
-has appointment in our office 06/13/2024.
-EKG today shows NSR with septal OH and ant/lat ST-T wave abnormality. Similar to previous EKGs but more prominent Q waves V1-V2, could be lead placement, will repeat EKG.
-cardiac rehab supposed to start 06/07/24, would move back a week to make sure BPs stabilize and he's seen in our office in followup prior to starting.
-continue efforts at full tobacco cessation
Data Reviewed
-
EKG: Tracing Personally Visualized and interpreted
Medical Tests (Nuc Med, Echo etc): Report Reviewed by me
Labs: Labs Reviewed by me
Total Time Spent with Patient (in minutes): 45
[2024-06-04 13:07] VITALS: BP 194/100
[2024-06-04] MEDS: APRESOLINE 50 MG PO (13:47)
== END 2024-06-04 15:02 | disposition home or self-care (01) ==
LOC: EMR 10:19
PROVIDERS: Physician Assistant; EMERGENCY PHYSICIAN Emergency Medicine; OTHER PHYSICIAN Nuclear Medicine Nuclear Cardiology
DX: I10 Essential (primary) hypertension (principal); I25.10 Atherosclerotic heart disease of native coronary artery without angina pectoris; Z95.1 Presence of aortocoronary bypass graft; F17.200 Nicotine dependence, unspecified, uncomplicated; I48.0 Paroxysmal atrial fibrillation; I25.2 Old myocardial infarction; E78.5 Hyperlipidemia, unspecified; Z79.899 Other long term (current) drug therapy; Z95.5 Presence of coronary angioplasty implant and graft
CPT/HCPCS: 99284; 80053; 85025; 93005

== ENCOUNTER → 2024-08-17 10:35 | Outpatient (REF) | payer OTHER, SELFPAY | LOC: RCS 10:35 | PROVIDERS: ATTENDING PHYSICIAN Physician Assistant; FAMILY PHYSICIAN Family Medicine | DX: I25.10 Atherosclerotic heart disease of native coronary artery without angina pectoris (principal); Z95.1 Presence of aortocoronary bypass graft; I25.5 Ischemic cardiomyopathy; I50.20 Unspecified systolic (congestive) heart failure | CPT/HCPCS: 93306 ==

== ENCOUNTER → 2024-10-09 11:16 | Outpatient (REF) | payer OTHER, SELFPAY | LOC: RAD 11:16 | PROVIDERS: ATTENDING PHYSICIAN Family Medicine | DX: M25.551 Pain in right hip (principal) | CPT/HCPCS: 73502 ==